=== PATIENT | male | born 1935 | race Caucasian/White ===

== ENCOUNTER 2023-03-10 22:13 | Inpatient (IN) ==
--- NOTE | 2023-03-10 22:23 | Emergency Department Note ---
History of Present Illness General Chief complaint: Hip Pain Stated complaint: FALL/HIT HEAD/lt. HIP AND WRIST PAIN Time Seen by Provider: 03/10/23 22:15 History of Present Illness This 87-year-old male on Xarelto presents to the ER for fall earlier this evening at 5 PM. Patient states he tripped and fell landing on his left side. He hit his head and hip. He was able to get up from the fall. He had increas ing pain since. He is also been fatigued and short of breath for the past month. He recently moved up here from [place] and does not have a PCP yet. He is on Xarelto for A-fib. Patient denies chest pain, abdominal pain, back pain, numbness, tingling, localized weakness. He has had problems with this hip for quite some time. Home Medications Medication Instructions Recorded Confirmed Type ascorbic acid (vitamin C) 500 mg 0 mg PO DAILY 03/11/23 03/11/23 History tablet (Vitamin C) cholecalciferol (vitamin D3) 25 0 mcg PO DAILY 03/11/23 03/11/23 History mcg (1,000 unit) tablet (Vitamin D3) finasteride 5 mg tablet 5 mg PO DAILY 03/11/23 03/11/23 History inulin 2 gram chewable tablet 0 g PO DAILY 03/11/23 03/11/23 History (Prebiotic Fiber) lactobacillus combination no.4 3 0 mmu cells PO DAILY 03/11/23 03/11/23 History billion cell capsule (Probiotic) metformin 500 mg tablet 1,000 mg PO BID 03/11/23 03/11/23 History metoprolol succinate 50 mg 50 mg PO DAILY 03/11/23 03/11/23 History tablet,extended release 24 hr multivitamin 1 tab PO DAILY 03/11/23 03/11/23 History pantoprazole 40 mg tablet,delayed 40 mg PO DAILY 03/11/23 03/11/23 History release rivaroxaban 15 mg tablet (Xarelto) 15 mg PO DAILY 03/11/23 03/11/23 History Allergies Allergy/AdvReac Type Severity Reaction Status Date / Time heparin AdvReac Thrombocyto Verified 03/11/23 02:28 penia Past Med/Surg History Medical History (Updated 03/11/23 @ 11:45 by Johan Mota MD) Atrial fibrillation BPH (benign prostatic hyperplasia) Complicated UTI (urinary tract infection) DKA (diabetic ketoacidosis) Hip fracture, left Kidney stone on right side Surgical History History of Whipple procedure Social History (Updated 03/11/23 @ 11:28 by Chidi Lopez PA-C) Smoking Status: Never smoker Second Hand Exposure: No; Do You Dip or Chew Tobacco: No; Tobacco Cessation Education Requested by Patient: No Hx Alcohol Use: Yes Alcohol type: wine Hx Substance Use: No Preferred Language: Serbian Communication Ability: Effective Cable Wirer Required: Yes Beliefs That Will Affect Care: None marital status: / Current Living Situation: Family Other Information That Helps Us Care for You: No Feels Safe at Home: Yes Safety Concerns: Feels Safe At This Time Assistive Devices: Glasses Review of Systems A total of 10 systems reviewed and were otherwise negative Physical Exam Vital Signs Vital Signs - 24 hr 03/10/23 22:39 03/10/23 23:03 03/11/23 01:06 Temperature 36.7 C Temperature Source Oral Pulse Rate 85 85 Pulse Rate [Apical] 91 H Pulse Rhythm Regular Regular Pulse Strength Normal Respiratory Rate 18 18 18 Respiratory Effort / Characteristics Non-Labored Spontaneous Non-Labored Spontaneous Respiratory Depth Normal Normal Respiratory Pattern Regular Blood Pressure 177/86 H Blood Pressure [Right Arm] 150/84 H Blood Pressure Mean 116 Blood Pressure Mean [Right Arm] 106 Blood Pressure Position Lying Pulse Oximetry 93 94 96 Oxygen Delivery Method Room Air Room Air Room Air Sepsis Recent Fever Within 48 Hours No Sepsis New/Unexplained Change in Mental Status No Sepsis Action Taken by Nursing No Action Required PHYSICAL EXAM: VITALS: Vitals are noted on the nurse's note and reviewed by myself. Vital signs stable. GENERAL: Pleasant gentleman with a left forehead abrasion and contusion, in no acute distress, nondiaphoretic, well-developed well-nourished. SKIN: Abrasion to the left forehead and contusion, the rest of the skin was without obvious lacerations or abrasions. Capillary reflex less than 2 seconds. HEAD: Normocephalic EARS: External auditory canals clear, tympanic membranes pearly garcia without erythema or effusion bilaterally. No hemotympanums. No mccord sign. No mastoid tenderness. EYES: Pupils equal round and reactive to light and accommodation. Conjunctivae without injection, sclerae without icterus. Extraocular movements intact. NOSE: Patent, turbinates without inflammation or discharge. No sinus tenderness. No septal hematoma or bleeding. FACE: No facial bone tenderness. Full range of motion of the jaw without tenderness. MOUTH: Mucous membranes moist. Pharynx without erythema or exudate. Uvula midline. Airway patent. Tongue does not deviate. NECK: Supple without nuchal rigidity. Cervical spine is nontender. Full range of motion of the neck without tenderness. No JVD. HEART: Regular rate and rhythm LUNGS: Clear to auscultation bilaterally without wheezes, rales or rhonchi. No dullness to percussion. No retractions or accessory muscle use. No chest wall tenderness. ABDOMEN: Positive bowel sounds x 4. Normal tympanic percussion. Soft, nontender, without masses or organomegaly. No guarding or rebound tenderness. MUSCULOSKELETAL: No tenderness of the thoracic or lumbar spine. Left hip tender to palpation, no crepitus, Full range of motion without tenderness to palpation in all extremities. Peripheral pulses 2+. NEURO: Patient was alert and oriented to person place and time. Normal Mini- Mental status exam. Normal sensation to light and sharp touch. No focal neurological deficits. Course Administered Medications Acetaminophen (Acetaminophen 325 Mg Tab) 650 mg PO Q4H [facility] Stop: 04/10/23 12:59 Last Admin: 03/11/23 17:53 Dose: 650 mg Documented By: Admin: 03/11/23 12:00 Dose: 650 mg Documented By: TOBIAS Finasteride (Finasteride 5 Mg Tab) 5 mg PO DAILY [facility] Stop: 04/10/23 08:59 Last Admin: 03/11/23 08:03 Dose: 5 mg Documented By: TOBIAS Sodium Chloride (Nss 1000ml) 1,000 mls @ 80 mls/hr IV .[id number] [facility] Stop: 03/11/23 23:14 Last Admin: 03/11/23 12:03 Dose: 80 mls/hr Documented By: TOBIAS Insulin Aspart (Insulin Aspart Per Unit Charge) 0 units SC Q6 [facility]; Protocol Stop: 04/10/23 05:59 Last Admin: 03/11/23 17:58 Dose: 13 units Documented By: TOBIAS Co-signed By: DELPHINE Admin: 03/11/23 11:57 Dose: 2 units Documented By: TOBIAS Co-signed By: DELPHINE(2) Admin: 03/11/23 05:16 Dose: 3 units Documented By: BELEN Co-signed By: RUBEN Metoprolol Succinate (Metoprolol Succ 50mg Ext Rel Tab) 50 mg PO DAILY [facility] Stop: 04/10/23 08:59 Last Admin: 03/11/23 07:38 Dose: Not Given Documented By: TOBIAS Morphine Sulfate (Morphine Sulfate 4 Mg/Ml 1 Ml Carp\Vial) 4 mg IV Q4H PRN PRN Reason: Severe Pain (Scale 7, 8, 9,10) Stop: 03/25/23 03:30 Last Admin: 03/11/23 17:53 Dose: 4 mg Documented By: Admin: 03/11/23 08:15 Dose: 4 mg Documented By: TOBIAS Pantoprazole Sodium (Pantoprazole 40 Mg Tab) 40 mg PO DAILY [facility] Stop: 04/10/23 08:59 Last Admin: 03/11/23 08:03 Dose: 40 mg Documented By: TOBIAS Discontinued Medications Diatrizoate Meglumine (Diatrizoate Meglumine 30% 100ml Vial) 11 ml INSTIL ONCE ONE Stop: 03/11/23 15:46 Last Admin: 03/11/23 15:45 Dose: 11 ml Documented By: [id number] Sodium Chloride (Nss 1000ml) 1,000 mls @ 999 mls/hr IV .Q1H1M ONE Stop: 03/11/23 00:08 Last Infusion: 03/11/23 00:17 Dose: 0 mls/hr Documented By: JOSE LUIS Admin: 03/10/23 23:11 Dose: 999 mls/hr Documented By: GGG Ceftriaxone Sodium (Rocephin) 2,000 mg in 70 mls @ 140 mls/hr IV NOW STA Stop: 03/10/23 23:45 Last Infusion: 03/11/23 01:04 Dose: 0 mls/hr Documented By: JOSE LUIS Admin: 03/11/23 00:33 Dose: 140 mls/hr Documented By: JOSE LUIS Insulin Human Regular 250 (units/ Sodium Chloride) 250 mls @ 2 mls/hr IV .Q24H [facility]; Protocol Stop: 04/09/23 23:44 Last Titration: 03/11/23 04:02 Dose: 0 units/hr, 0 mls/hr Documented By: BELEN Co-signed By: RUBEN Titration: 03/11/23 02:57 Dose: 2 units/hr, 2 mls/hr Documented By: JOSE LUIS Co-signed By: REYNALDO Titration: 03/11/23 02:00 Dose: 4 units/hr, 4 mls/hr Documented By: AN Co-signed By: REYNALDO Titration: 03/11/23 01:43 Dose: 6.4 units/hr, 6.4 mls/hr Documented By: AN Co-signed By: REYNALDO Admin: 03/11/23 00:33 Dose: 8 units/hr, 8 mls/hr Documented By: AN Co-signed By: REYNALDO Acetaminophen (Ofirmev) 1,000 mg in 100 mls @ 400 mls/hr IV Q8H PRN PRN Reason: Mild Pain (Scale 1, 2, 3) Stop: 03/14/23 03:30 Last Infusion: 03/11/23 06:55 Dose: 0 mls/hr Documented By: Admin: 03/11/23 06:40 Dose: 400 mls/hr Documented By: BELEN Insulin Aspart (Insulin Aspart Per Unit Charge) 3 units SC NOW STA; Protocol Stop: 03/11/23 06:21 Last Admin: 03/11/23 06:27 Dose: 3 units Documented By: BELEN Co-signed By: DAVE Insulin Glargine (Lantus Per Unit Charge) 10 units SC NOW STA Stop: 03/11/23 02:28 Last Admin: 03/11/23 02:37 Dose: 10 units Documented By: AN Co-signed By: REYNALDO Insulin Glargine (Lantus Per Unit Charge) 10 units SC NOW STA Stop: 03/11/23 05:08 Last Admin: 03/11/23 05:16 Dose: 10 units Documented By: BELEN Co-signed By: RUBEN Insulin Human Regular (Novolin-R Bolus From Bag) 8 units IV ONE ONE Stop: 03/11/23 00:01 Last Admin: 03/11/23 00:43 Dose: 8 units Documented By: AN Co-signed By: REYNALDO Miscellaneous (Stat Iv Infusion Titration Per Protocol) 1 each N/A NOW STA Stop: 03/10/23 23:40 Last Admin: 03/11/23 00:43 Dose: 1 each Documented By: AN Miscellaneous (Dka Goal Range 150-250 Mg/Dl) 1 each N/A ONE ONE Stop: 03/10/23 23:46 Last Admin: 03/11/23 00:43 Dose: 1 each Documented By: AN Morphine Sulfate (Morphine Sulfate 4 Mg/Ml 1 Ml Carp\Vial) 4 mg IV NOW STA Stop: 03/11/23 01:13 Last Admin: 03/11/23 01:36 Dose: 4 mg Documented By: AN Critical Care Time Critical Care Time: Yes Total Critical Care Time: 35 I have personally spent 35 minutes of critical care time in the direct management of this patient. This includes bedside care, interpretation of diagnostic studies, and testing, discussion with consultants, patient, and family members, and other required patient management activities. This 35 minutes is in excess of all separately billable procedures. Medical Decision Making Medical Records Attestation: I reviewed the patient's medical records. Home Medications Current Medication List: was personally reviewed by me Laboratory Data Attestation: I reviewed the patient's lab results. 03/10/23 22:52 03/11/23 00:13 Lab Results 03/10/23 03/10/23 03/10/23 Range/Units 22:51 22:52 22:52 WBC 14.58 H (4.8-10.8) K/ul RBC 4.27 L (4.70-6.10) M/uL Hgb 10.4 L (14.0-18.0) g/dl POC Hgb (14.0-18.0) g/dl Hct 34.3 L (42.0-52.0) % POC Hct (42-52) % MCV 80.3 (80.0-100.0) fL MCH 24.4 L (25.0-34.0) pg MCHC 30.3 L (32.0-36.0) g/dL RDW Std Deviation 48.6 H (36.4-46.3) fL RDW Coeff of Billie 17.0 H (11.5-14.5) % Plt Count 293 (130-400) K/uL MPV 10.4 (9.4-12.4) fL Immature Gran % (Auto) 1.0 % Neut % (Auto) 86.8 % Lymph % (Auto) 4.0 % [place] % (Auto) 8.0 % Eos % (Auto) 0.0 % Baso % (Auto) 0.2 % Neut # (Auto) 12.65 H (1.40-6.50) K/uL Lymph # (Auto) 0.58 L (1.2-3.4) K/uL [place] # (Auto) 1.17 H (0.11-0.59) K/uL Eos # (Auto) 0.00 (0-0.50) K/uL Baso # (Auto) 0.03 (0-0.2) K/uL Immature Gran # (Auto) 0.15 (0.01-0.20) K/uL PT INR VBG pH (7.36-7.41) POC Sodium (135-144) mmol/L Sodium 131 L (136-145) mmol/L POC Potassium (3.3-5.0) mmol/L Potassium 4.9 (3.5-5.1) mmol/L POC Chloride (101-112) mmol/L Chloride 98 (98-107) mmol/L Carbon Dioxide 21 (21-32) mmol/L POC Total CO2 (24-31) mmol/L Anion Gap 12 H (3-11) POC Anion Gap (16-25) mmol/L POC BUN (7-18) mg/dl BUN 27 H (6-23) mg/dl Creatinine 1.62 H (0.6-1.4) mg/dl POC Creatinine (0.6-1.3) mg/dl Est Cr Clr Drug Dosing 35.5 ml/min Est GFR ( Amer) 44.2 ml/min Est GFR (Non-Af Amer) 38.1 ml/min BUN/Creatinine Ratio 16.7 (10-20) Glucose 649 H* (70-99(Fasting)) mg/dl POC Glucose (70-99) mg/dl POC Glucose (other) (70-99) mg/dl Calcium 9.1 (8.6-10.3) mg/dl POC Ioniz Calcium Liudmila (1.12-1.32) mmol/l Phosphorus (2.5-4.9) mg/dl Magnesium 1.8 (1.7-2.4) mg/dl Total Bilirubin 0.7 (0.2-1.0) mg/dl AST 16 (13-39) U/L ALT 15 (7-52) U/L Alkaline Phosphatase 98 (34-104) U/L Total Creatine Kinase 58 (30-223) U/L Troponin I High Sens 21.2 H (0-20) pg/ml B-Natriuretic Peptide (0-100) pg/ml Total Protein 7.3 (6.0-8.3) gm/dl Albumin 4.2 (3.4-5.0) gm/dl Globulin 3.1 (2.5-4.0) gm/dl Albumin/Globulin Ratio 1.4 (0.9-2) TSH (0.300-4.500) uIu/ml Urine Color Yellow Urine Appearance Cloudy A (Clear) Urine pH 5.5 (4.5-7.5) Ur Specific Fraser 1.028 (1.000-1.030) Urine Protein 1+ H (Negative) Urine Glucose (UA) 3+ H (Negative) Urine Ketones Trace H (Negative) Urine Blood 2+ H (Negative) Urine Nitrite Positive A (Negative) Urine Bilirubin Negative (Negative) Urine Urobilinogen Negative (Negative) Ur Leukocyte Esterase 1+ H (Negative) Urine WBC (Auto) >30 H (0-5) /hpf Urine RBC (Auto) 0-4 (0-4) /hpf U Hyaline Cast (Auto) 1-5 (0-5) /lpf U Epithel Cells (Auto) 10-20 H (0-5) /lpf Urine Bacteria (Auto) 1+ H (Negative) Urine Yeast Not Reportable Adenovirus (PCR) (NotDetected) B. pertussis DNA (PCR) (NotDetected) B.parapertussis DNA PCR (NotDetected) C. pneumoniae DNA (PCR) (NotDetected) Coronavirus OC43 (PCR) (NotDetected) Coronavirus HKU1 (PCR) (NotDetected) Coronavirus 229E (PCR) (NotDetected) SARS-CoV-2 (PCR) (NotDetected) Coronavirus NL63 (PCR) (NotDetected) Human Metapneumovir PCR (NotDetected) Influenza Type A (PCR) (NotDetected) Influenza Type B (PCR) (NotDetected) M. pneumoniae (PCR) (NotDetected) Parainfluenza 1 (PCR) (NotDetected) Parainfluenza 2 (PCR) (NotDetected) Parainfluenza 3 (PCR) (NotDetected) Parainfluenza 4 (PCR) (NotDetected) RSV (PCR) (NotDetected) Entero/Rhino (PCR) (NotDetected) 03/10/23 03/10/23 03/10/23 Range/Units 22:52 22:52 23:00 WBC (4.8-10.8) K/ul RBC (4.70-6.10) M/uL Hgb (14.0-18.0) g/dl POC Hgb 12.9 L (14.0-18.0) g/dl Hct (42.0-52.0) % POC Hct 38 L (42-52) % MCV (80.0-100.0) fL MCH (25.0-34.0) pg MCHC (32.0-36.0) g/dL RDW Std Deviation (36.4-46.3) fL RDW Coeff of Billie (11.5-14.5) % Plt Count (130-400) K/uL MPV (9.4-12.4) fL Immature Gran % (Auto) % Neut % (Auto) % Lymph % (Auto) % [place] % (Auto) % Eos % (Auto) % Baso % (Auto) % Neut # (Auto) (1.40-6.50) K/uL Lymph # (Auto) (1.2-3.4) K/uL [place] # (Auto) (0.11-0.59) K/uL Eos # (Auto) (0-0.50) K/uL Baso # (Auto) (0-0.2) K/uL Immature Gran # (Auto) (0.01-0.20) K/uL PT Cancelled INR Cancelled VBG pH (7.36-7.41) POC Sodium 132 L (135-144) mmol/L Sodium (136-145) mmol/L POC Potassium 5.1 H (3.3-5.0) mmol/L Potassium (3.5-5.1) mmol/L POC Chloride 99 L (101-112) mmol/L Chloride (98-107) mmol/L Carbon Dioxide (21-32) mmol/L POC Total CO2 18 L (24-31) mmol/L Anion Gap (3-11) POC Anion Gap 20.0 (16-25) mmol/L POC BUN 34 H (7-18) mg/dl BUN (6-23) mg/dl Creatinine (0.6-1.4) mg/dl POC Creatinine 1.4 H (0.6-1.3) mg/dl Est Cr Clr Drug Dosing ml/min Est GFR ( Amer) ml/min Est GFR (Non-Af Amer) ml/min BUN/Creatinine Ratio (10-20) Glucose (70-99(Fasting)) mg/dl POC Glucose (70-99) mg/dl POC Glucose (other) 646 H* (70-99) mg/dl Calcium (8.6-10.3) mg/dl POC Ioniz Calcium Liudmila 1.04 L (1.12-1.32) mmol/l Phosphorus (2.5-4.9) mg/dl Magnesium (1.7-2.4) mg/dl Total Bilirubin (0.2-1.0) mg/dl AST (13-39) U/L ALT (7-52) U/L Alkaline Phosphatase (34-104) U/L Total Creatine Kinase (30-223) U/L Troponin I High Sens (0-20) pg/ml B-Natriuretic Peptide (0-100) pg/ml Total Protein (6.0-8.3) gm/dl Albumin (3.4-5.0) gm/dl Globulin (2.5-4.0) gm/dl Albumin/Globulin Ratio (0.9-2) TSH 2.785 (0.300-4.500) uIu/ml Urine Color Urine Appearance (Clear) Urine pH (4.5-7.5) Ur Specific Fraser (1.000-1.030) Urine Protein (Negative) Urine Glucose (UA) (Negative) Urine Ketones (Negative) Urine Blood (Negative) Urine Nitrite (Negative) Urine Bilirubin (Negative) Urine Urobilinogen (Negative) Ur Leukocyte Esterase (Negative) Urine WBC (Auto) (0-5) /hpf Urine RBC (Auto) (0-4) /hpf U Hyaline Cast (Auto) (0-5) /lpf U Epithel Cells (Auto) (0-5) /lpf Urine Bacteria (Auto) (Negative) Urine Yeast Adenovirus (PCR) (NotDetected) B. pertussis DNA (PCR) (NotDetected) B.parapertussis DNA PCR (NotDetected) C. pneumoniae DNA (PCR) (NotDetected) Coronavirus OC43 (PCR) (NotDetected) Coronavirus HKU1 (PCR) (NotDetected) Coronavirus 229E (PCR) (NotDetected) SARS-CoV-2 (PCR) (NotDetected) Coronavirus NL63 (PCR) (NotDetected) Human Metapneumovir PCR (NotDetected) Influenza Type A (PCR) (NotDetected) Influenza Type B (PCR) (NotDetected) M. pneumoniae (PCR) (NotDetected) Parainfluenza 1 (PCR) (NotDetected) Parainfluenza 2 (PCR) (NotDetected) Parainfluenza 3 (PCR) (NotDetected) Parainfluenza 4 (PCR) (NotDetected) RSV (PCR) (NotDetected) Entero/Rhino (PCR) (NotDetected) 03/10/23 03/11/23 03/11/23 Range/Units Unknown 00:13 00:13 WBC (4.8-10.8) K/ul RBC (4.70-6.10) M/uL Hgb (14.0-18.0) g/dl POC Hgb (14.0-18.0) g/dl Hct (42.0-52.0) % POC Hct (42-52) % MCV (80.0-100.0) fL MCH (25.0-34.0) pg MCHC (32.0-36.0) g/dL RDW Std Deviation (36.4-46.3) fL RDW Coeff of Billie (11.5-14.5) % Plt Count (130-400) K/uL MPV (9.4-12.4) fL Immature Gran % (Auto) % Neut % (Auto) % Lymph % (Auto) % [place] % (Auto) % Eos % (Auto) % Baso % (Auto) % Neut # (Auto) (1.40-6.50) K/uL Lymph # (Auto) (1.2-3.4) K/uL [place] # (Auto) (0.11-0.59) K/uL Eos # (Auto) (0-0.50) K/uL Baso # (Auto) (0-0.2) K/uL Immature Gran # (Auto) (0.01-0.20) K/uL PT INR VBG pH (7.36-7.41) POC Sodium (135-144) mmol/L Sodium 132 L (136-145) mmol/L POC Potassium (3.3-5.0) mmol/L Potassium 4.5 (3.5-5.1) mmol/L POC Chloride (101-112) mmol/L Chloride 100 (98-107) mmol/L Carbon Dioxide 22 (21-32) mmol/L POC Total CO2 (24-31) mmol/L Anion Gap 10 (3-11) POC Anion Gap (16-25) mmol/L POC BUN (7-18) mg/dl BUN 27 H (6-23) mg/dl Creatinine 1.50 H (0.6-1.4) mg/dl POC Creatinine (0.6-1.3) mg/dl Est Cr Clr Drug Dosing 38.3 ml/min Est GFR ( Amer) 48.5 ml/min Est GFR (Non-Af Amer) 41.9 ml/min BUN/Creatinine Ratio 18.0 (10-20) Glucose 558 H* (70-99(Fasting)) mg/dl POC Glucose (70-99) mg/dl POC Glucose (other) (70-99) mg/dl Calcium 8.9 (8.6-10.3) mg/dl POC Ioniz Calcium Liudmila (1.12-1.32) mmol/l Phosphorus 3.3 (2.5-4.9) mg/dl Magnesium (1.7-2.4) mg/dl Total Bilirubin (0.2-1.0) mg/dl AST (13-39) U/L ALT (7-52) U/L Alkaline Phosphatase (34-104) U/L Total Creatine Kinase (30-223) U/L Troponin I High Sens 21.6 H (0-20) pg/ml B-Natriuretic Peptide 151 H (0-100) pg/ml Total Protein (6.0-8.3) gm/dl Albumin (3.4-5.0) gm/dl Globulin (2.5-4.0) gm/dl Albumin/Globulin Ratio (0.9-2) TSH (0.300-4.500) uIu/ml Urine Color Urine Appearance (Clear) Urine pH (4.5-7.5) Ur Specific Fraser (1.000-1.030) Urine Protein (Negative) Urine Glucose (UA) (Negative) Urine Ketones (Negative) Urine Blood (Negative) Urine Nitrite (Negative) Urine Bilirubin (Negative) Urine Urobilinogen (Negative) Ur Leukocyte Esterase (Negative) Urine WBC (Auto) (0-5) /hpf Urine RBC (Auto) (0-4) /hpf U Hyaline Cast (Auto) (0-5) /lpf U Epithel Cells (Auto) (0-5) /lpf Urine Bacteria (Auto) (Negative) Urine Yeast Adenovirus (PCR) Not Detected (NotDetected) B. pertussis DNA (PCR) Not Detected (NotDetected) B.parapertussis DNA PCR Not Detected (NotDetected) C. pneumoniae DNA (PCR) Not Detected (NotDetected) Coronavirus OC43 (PCR) Not Detected (NotDetected) Coronavirus HKU1 (PCR) Not Detected (NotDetected) Coronavirus 229E (PCR) Not Detected (NotDetected) SARS-CoV-2 (PCR) Not Detected (NotDetected) Coronavirus NL63 (PCR) Not Detected (NotDetected) Human Metapneumovir PCR Not Detected (NotDetected) Influenza Type A (PCR) Not Detected (NotDetected) Influenza Type B (PCR) Not Detected (NotDetected) M. pneumoniae (PCR) Not Detected (NotDetected) Parainfluenza 1 (PCR) Not Detected (NotDetected) Parainfluenza 2 (PCR) Not Detected (NotDetected) Parainfluenza 3 (PCR) Not Detected (NotDetected) Parainfluenza 4 (PCR) Not Detected (NotDetected) RSV (PCR) Not Detected (NotDetected) Entero/Rhino (PCR) Not Detected (NotDetected) 03/11/23 03/11/23 03/11/23 Range/Units 00:13 00:13 00:42 WBC (4.8-10.8) K/ul RBC (4.70-6.10) M/uL Hgb (14.0-18.0) g/dl POC Hgb (14.0-18.0) g/dl Hct (42.0-52.0) % POC Hct (42-52) % MCV (80.0-100.0) fL MCH (25.0-34.0) pg MCHC (32.0-36.0) g/dL RDW Std Deviation (36.4-46.3) fL RDW Coeff of Billie (11.5-14.5) % Plt Count (130-400) K/uL MPV (9.4-12.4) fL Immature Gran % (Auto) % Neut % (Auto) % Lymph % (Auto) % [place] % (Auto) % Eos % (Auto) % Baso % (Auto) % Neut # (Auto) (1.40-6.50) K/uL Lymph # (Auto) (1.2-3.4) K/uL [place] # (Auto) (0.11-0.59) K/uL Eos # (Auto) (0-0.50) K/uL Baso # (Auto) (0-0.2) K/uL Immature Gran # (Auto) (0.01-0.20) K/uL PT INR VBG pH 7.30 L (7.36-7.41) POC Sodium (135-144) mmol/L Sodium (136-145) mmol/L POC Potassium (3.3-5.0) mmol/L Potassium (3.5-5.1) mmol/L POC Chloride (101-112) mmol/L Chloride (98-107) mmol/L Carbon Dioxide (21-32) mmol/L POC Total CO2 (24-31) mmol/L Anion Gap (3-11) POC Anion Gap (16-25) mmol/L POC BUN (7-18) mg/dl BUN (6-23) mg/dl Creatinine (0.6-1.4) mg/dl POC Creatinine (0.6-1.3) mg/dl Est Cr Clr Drug Dosing ml/min Est GFR ( Amer) ml/min Est GFR (Non-Af Amer) ml/min BUN/Creatinine Ratio (10-20) Glucose (70-99(Fasting)) mg/dl POC Glucose 522 H* (70-99) mg/dl POC Glucose (other) (70-99) mg/dl Calcium (8.6-10.3) mg/dl POC Ioniz Calcium Liudmila (1.12-1.32) mmol/l Phosphorus (2.5-4.9) mg/dl Magnesium (1.7-2.4) mg/dl Total Bilirubin (0.2-1.0) mg/dl AST (13-39) U/L ALT (7-52) U/L Alkaline Phosphatase (34-104) U/L Total Creatine Kinase (30-223) U/L Troponin I High Sens Cancelled (0-20) pg/ml B-Natriuretic Peptide (0-100) pg/ml Total Protein (6.0-8.3) gm/dl Albumin (3.4-5.0) gm/dl Globulin (2.5-4.0) gm/dl Albumin/Globulin Ratio (0.9-2) TSH (0.300-4.500) uIu/ml Urine Color Urine Appearance (Clear) Urine pH (4.5-7.5) Ur Specific Fraser (1.000-1.030) Urine Protein (Negative) Urine Glucose (UA) (Negative) Urine Ketones (Negative) Urine Blood (Negative) Urine Nitrite (Negative) Urine Bilirubin (Negative) Urine Urobilinogen (Negative) Ur Leukocyte Esterase (Negative) Urine WBC (Auto) (0-5) /hpf Urine RBC (Auto) (0-4) /hpf U Hyaline Cast (Auto) (0-5) /lpf U Epithel Cells (Auto) (0-5) /lpf Urine Bacteria (Auto) (Negative) Urine Yeast Adenovirus (PCR) (NotDetected) B. pertussis DNA (PCR) (NotDetected) B.parapertussis DNA PCR (NotDetected) C. pneumoniae DNA (PCR) (NotDetected) Coronavirus OC43 (PCR) (NotDetected) Coronavirus HKU1 (PCR) (NotDetected) Coronavirus 229E (PCR) (NotDetected) SARS-CoV-2 (PCR) (NotDetected) Coronavirus NL63 (PCR) (NotDetected) Human Metapneumovir PCR (NotDetected) Influenza Type A (PCR) (NotDetected) Influenza Type B (PCR) (NotDetected) M. pneumoniae (PCR) (NotDetected) Parainfluenza 1 (PCR) (NotDetected) Parainfluenza 2 (PCR) (NotDetected) Parainfluenza 3 (PCR) (NotDetected) Parainfluenza 4 (PCR) (NotDetected) RSV (PCR) (NotDetected) Entero/Rhino (PCR) (NotDetected) 03/11/23 Range/Units 01:42 WBC (4.8-10.8) K/ul RBC (4.70-6.10) M/uL Hgb (14.0-18.0) g/dl POC Hgb (14.0-18.0) g/dl Hct (42.0-52.0) % POC Hct (42-52) % MCV (80.0-100.0) fL MCH (25.0-34.0) pg MCHC (32.0-36.0) g/dL RDW Std Deviation (36.4-46.3) fL RDW Coeff of Billie (11.5-14.5) % Plt Count (130-400) K/uL MPV (9.4-12.4) fL Immature Gran % (Auto) % Neut % (Auto) % Lymph % (Auto) % [place] % (Auto) % Eos % (Auto) % Baso % (Auto) % Neut # (Auto) (1.40-6.50) K/uL Lymph # (Auto) (1.2-3.4) K/uL [place] # (Auto) (0.11-0.59) K/uL Eos # (Auto) (0-0.50) K/uL Baso # (Auto) (0-0.2) K/uL Immature Gran # (Auto) (0.01-0.20) K/uL PT INR VBG pH (7.36-7.41) POC Sodium (135-144) mmol/L Sodium (136-145) mmol/L POC Potassium (3.3-5.0) mmol/L Potassium (3.5-5.1) mmol/L POC Chloride (101-112) mmol/L Chloride (98-107) mmol/L Carbon Dioxide (21-32) mmol/L POC Total CO2 (24-31) mmol/L Anion Gap (3-11) POC Anion Gap (16-25) mmol/L POC BUN (7-18) mg/dl BUN (6-23) mg/dl Creatinine (0.6-1.4) mg/dl POC Creatinine (0.6-1.3) mg/dl Est Cr Clr Drug Dosing ml/min Est GFR ( Amer) ml/min Est GFR (Non-Af Amer) ml/min BUN/Creatinine Ratio (10-20) Glucose (70-99(Fasting)) mg/dl POC Glucose 366 H* (70-99) mg/dl POC Glucose (other) (70-99) mg/dl Calcium (8.6-10.3) mg/dl POC Ioniz Calcium Liudmila (1.12-1.32) mmol/l Phosphorus (2.5-4.9) mg/dl Magnesium (1.7-2.4) mg/dl Total Bilirubin (0.2-1.0) mg/dl AST (13-39) U/L ALT (7-52) U/L Alkaline Phosphatase (34-104) U/L Total Creatine Kinase (30-223) U/L Troponin I High Sens (0-20) pg/ml B-Natriuretic Peptide (0-100) pg/ml Total Protein (6.0-8.3) gm/dl Albumin (3.4-5.0) gm/dl Globulin (2.5-4.0) gm/dl Albumin/Globulin Ratio (0.9-2) TSH (0.300-4.500) uIu/ml Urine Color Urine Appearance (Clear) Urine pH (4.5-7.5) Ur Specific Fraser (1.000-1.030) Urine Protein (Negative) Urine Glucose (UA) (Negative) Urine Ketones (Negative) Urine Blood (Negative) Urine Nitrite (Negative) Urine Bilirubin (Negative) Urine Urobilinogen (Negative) Ur Leukocyte Esterase (Negative) Urine WBC (Auto) (0-5) /hpf Urine RBC (Auto) (0-4) /hpf U Hyaline Cast (Auto) (0-5) /lpf U Epithel Cells (Auto) (0-5) /lpf Urine Bacteria (Auto) (Negative) Urine Yeast Adenovirus (PCR) (NotDetected) B. pertussis DNA (PCR) (NotDetected) B.parapertussis DNA PCR (NotDetected) C. pneumoniae DNA (PCR) (NotDetected) Coronavirus OC43 (PCR) (NotDetected) Coronavirus HKU1 (PCR) (NotDetected) Coronavirus 229E (PCR) (NotDetected) SARS-CoV-2 (PCR) (NotDetected) Coronavirus NL63 (PCR) (NotDetected) Human Metapneumovir PCR (NotDetected) Influenza Type A (PCR) (NotDetected) Influenza Type B (PCR) (NotDetected) M. pneumoniae (PCR) (NotDetected) Parainfluenza 1 (PCR) (NotDetected) Parainfluenza 2 (PCR) (NotDetected) Parainfluenza 3 (PCR) (NotDetected) Parainfluenza 4 (PCR) (NotDetected) RSV (PCR) (NotDetected) Entero/Rhino (PCR) (NotDetected) Imaging Data Attestation: I personally reviewed and interpreted this imaging study as follows: Radiologist's Impression: Cervical Spine CT 03/10/23 22:21 Exam(s): CT C SPINE EXAM: CT Cervical Spine Without Intravenous Contrast CLINICAL HISTORY: Reason for exam: HI on Xarelto. TECHNIQUE: Axial computed tomography images of the cervical spine without intravenous contrast. CTDI is 23.48 mGy and DLP is 549.03 mGy-cm. Automated exposure control was utilized for the study. A dose lowering technique was utilized adhering to the principles of ALARA. COMPARISON: No relevant prior studies available. FINDINGS: Vertebrae: Grade 1 anterolisthesis of C7 relative to T1. Otherwise, alignment is maintained with preservation of vertebral body heights. No acute fracture. Discs/spinal canal/neural foramina: No significant bony spinal canal stenosis at any cervical level. C3-4, C4-5, and C5-6 spondylosis with anterior bony spurs. Uncinate spurs and facet hypertrophy cause severe right neural foramen stenosis at the C3-4 level. Facet hypertrophy and uncinate spurs cause moderate bilateral neural foramen stenosis at C4-5. No significant neural foramen stenosis at C5-6. Soft tissues: Unremarkable. IMPRESSION: No acute findings in the cervical spine. Electronically signed by: Yuri Lora M.D. 03/10/23 23:[address] 03/10/23 22:21 Exam(s): CT HEAD Without Contrast EXAM: CT Head Without Intravenous Contrast CLINICAL HISTORY: Reason for exam: HI on Xarelto. TECHNIQUE: Axial computed tomography images of the head/brain without intravenous contrast. CTDI is 38.74 mGy and DLP is 624.41 mGy-cm. Automated exposure control was utilized for the study. A dose lowering technique was utilized adhering to the principles of ALARA. COMPARISON: No relevant prior studies available. FINDINGS: Brain: Mild periventricular white matter changes, likely related to microangiopathy. No hemorrhage. Ventricles: Unremarkable. No ventriculomegaly. Bones/joints: Unremarkable. No acute fracture. Soft tissues: Unremarkable. Sinuses: Unremarkable as visualized. No acute sinusitis. Mastoid air cells: Unremarkable as visualized. No mastoid effusion. IMPRESSION: Mild periventricular white matter changes, likely related to microangiopathy. Electronically signed by: Yuri Lora M.D. 03/10/23 22:59 PM Abdomen/Pelvis CT 03/10/23 23:43 Exam(s): CT ABDOMEN + PELVIS Without Contrast EXAM: CT Abdomen and Pelvis Without Intravenous Contrast CLINICAL HISTORY: Reason for exam: DKA, UTI, ? pyelo. TECHNIQUE: Axial computed tomography images of the abdomen and pelvis without intravenous contrast. Automated exposure control was utilized for the study. A dose lowering technique was utilized adhering to the principles of ALARA. COMPARISON: No relevant prior studies available. FINDINGS: Lung bases: Bilateral dependent atelectasis. No mass. No consolidation. ABDOMEN: Liver: Unremarkable. Gallbladder and bile ducts: Pneumobilia within expected limits. No calcified stones. No ductal dilation. 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 No ductal dilation. Spleen: Unremarkable. No splenomegaly. Adrenals: Unremarkable. No mass. Kidneys and ureters: 0.2 cm nonobstructing left lower pole renal calculus. 1.2 x 0.6 cm distal right ureteral calculus best seen on series 300 image 54. The right ureter inserts more laterally than typical. It is unusual that there is no hydronephrosis of the right kidney. Stomach and bowel: Unremarkable. No obstruction. No mucosal thickening. PELVIS: Appendix: No findings to suggest acute appendicitis. Bladder: Right lateral bladder diverticulum. No stones. Reproductive: Unremarkable as visualized. ABDOMEN and PELVIS: Intraperitoneal space: Unremarkable. No free air. No significant fluid collection. Bones/joints: Left intertrochanteric hip fracture. No dislocation. Soft tissues: Unremarkable. Vasculature: Unremarkable. No abdominal aortic aneurysm. Lymph nodes: Unremarkable. No enlarged lymph nodes. IMPRESSION: 1.2 x 0.6 cm distal right ureteral calculus best seen on series 300 image 54. The right ureter inserts more laterally than typical. It is unusual that there is no hydronephrosis of the right kidney. Status post Whipple surgery. Remaining pancreas has coarse calcifications consistent with chronic calcific pancreatitis. Electronically signed by: Yuri Lora M.D. 03/11/23 02:[address] 03/10/23 23:43 Exam(s): CT LEFT HIP Without Contrast EXAM: CT Left Lower Extremity Without Intravenous Contrast, Hip CLINICAL HISTORY: Reason for exam: fall, pain. TECHNIQUE: Axial computed tomography images of the left hip without intravenous contrast. Automated exposure control was utilized for the study. A dose lowering technique was utilized adhering to the principles of ALARA. COMPARISON: No relevant prior studies available. FINDINGS: Bones/joints: Minimally displaced left intertrochanteric hip fracture. 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 No dislocation. No evidence of pathologic fracture. Soft tissues: Unremarkable. IMPRESSION: Minimally displaced left intertrochanteric hip fracture. Electronically signed by: Yuri Lora M.D. 03/11/23 02:23 AM MDM Narrative Prior records/ancillary studies reviewed. Triage Nursing notes reviewed. Additional history obtained from EMS. The patient's history was concerning for traumatic injury Differential diagnosis: Etiologies such as fracture, dislocation, intra-abdominal, pneumothorax, intrathoracic , intracranial, neurologic, as well as other traumatic pathologies were entertained. Physical examination findings: As above. The patients vitals were stable. ER treatment provided: Wound care by nursing Patient was emergently sent down for CAT scan as he hit his head and is on Xarelto An order was placed for continuous cardiac monitoring. The monitor shows a rate of 60-100 with a sinus rhythm per my interpretation. I did attempt to obtain the patient's records from [place] but unfortunately records department was closed. On reassessment the patient felt better. Vital signs were stable. Diagnostic interpretation by me: A 12 lead ECG revealed no emergent pathology. Ordered for dyspnea EKG: Normal sinus, right bundle, left anterior fascicular block, impression normal sinus rhythm with right bundle branch block left anterior fascicular block independently interpreted by myself The labs Independently Interpreted by myself revealed urine concerning for infection sent for culture. Hyperglycemia with mild DKA. Blood cultures pending Elevated troponin most likely type II from patient having infection in DKA Imaging studies: Hip x-ray concerning for intertrochanteric hip fracture per my independent interpretation Chest x-ray with no acute consolidation, pneumothorax or free air per my independent interpretation CTs of the head C-spine abdomen pelvis and hip read by radiology and reviewed by myself Consultation: A consultation was placed with hospitalist. The case was discussed and diagnostics were reviewed. The patient was admitted to their service. This appears to be consistent with DKA, UTI with stone, hip fracture, fall, and head injury on Coumadin. Patient was immediately sent down to CAT scan as he is on Xarelto with a head injury for rule out intracranial bleed . Labs and diagnostics were independently interpreted by myself. 2 lines were placed. He was hydrated and medicated as above. He was started on insulin drip; he was given antibiotics. Blood cultures are pending. Patient was admitted to the medical team. He was reassessed multiple times. Blood sugar improved. Zhang was placed for hip fracture. By the evaluation outlined above emergent etiologies such as dislocation, pneumothorax, pulmonary contusion, hemothorax, intracranial, neurologic,as well as others were deemed relatively unlikely. The pt informed about the findings as listed above. All questions were answered and pleased with the treatment The chart was completed utilizing [employer] voice recognition software. Grammatical errors, random word insertions, pronoun errors, and incomplete sentences are an occassional consequence of this system due to software limitations, ambient noise, and hardware issues. Any formal questions or concerns about the content, text, or information contained within the body of this dictation should be directly addressed to the physician assistant education director for clarification. Impression & Plan DKA (diabetic ketoacidosis), Fall from standing, Complicated UTI (urinary tract infection), Kidney stone on right side, Hip fracture, left, Elevated troponin, Elevated serum creatinine Discharge Plan Visit Data Chief Complaint: Hip Pain Stated Complaint: FALL/HIT HEAD/lt. HIP AND WRIST PAIN ED Provider: Siddharth Sears ED Midlevel Provider: Ivy Sims Discharge Problem: DKA (diabetic ketoacidosis), Fall from standing, Complicated UTI (urinary tract infection), Kidney stone on right side, Hip fracture, left, Elevated troponin, Elevated serum creatinine Patient Disposition: Admitted As Inpatient Condition: Fair Discharge Instructions Interventions: ED Discharge Assessment Last Done: 03/11/23 03:23 Addendum March 11, 2023 18:51 HPI: The patient is an 86-year-old gentleman with a past medical history of atrial fibrillation on Xarelto, type 2 diabetes on insulin who presents to the emergency department for evaluation of a fall occurring around 1700 this evening when he tripped falling onto his left side where he hit his hip and head. He was unable to get up secondary to pain. He denies loss of consciousness. The patient recently moved to the area from [place] and has yet to establish care with a primary care doctor. A/P: EKG without overt acute ischemia. Chest x-ray negative for acute cardiopulmonary process. Plain films of pelvis and left hip demonstrates left femoral neck fracture further characterized and confirmed on CT imaging. WBC 14.5K, H/H 10.4/34.3 without prior for comparison. Platelets wnl. Chemistry demonstrates marginally elevated anion gap of 12 and bicarbonate of 21 with initial glucose 600s. VBG with pH of 7.3 and so concern for early DKA. Creatinine 1.6 without prior values for comparison. LFTs are unremarkable. High-sensitivity troponin 21.2, nonspecific.. UA is suspicious for infection with positive nitrites WBCs and 1+ bacteria albeit with epithelial cells present. Respiratory viral panel/bio fire was negative. CT of the abdomen pelvis demonstrates 1.2 x 0.6 cm distal ureteral stone that appears to be nonobstructing without hydronephrosis. CT of the head and cervical spine negative for acute findings. Treatment initiated with IV fluid hydration as well as initiation of insulin drip and ceftriaxone for UTI. Hemodynamically stable. Patient was referred to hospital service for admission and further management. Further management per admitting team. I was consulted by the Advanced Practice Provider.I performed a substantive portion of the visit.This includes aspects of the HPI, MDM, diagnostic interpretations, and disposition/plan. I discussed the case with the [facility], examined the patient, and agree with the findings and plan as documented in HINA Levi's note. DKA (diabetic ketoacidosis) Qualifiers: Diabetes mellitus type: type 2 Diabetes mellitus complication detail: without coma Qualified Code(s): E11.10 - Type 2 diabetes mellitus with ketoacidosis without coma
--- NOTE | 2023-03-10 23:00 | CT Scan Report ---
Exam(s): CT HEAD Without Contrast EXAM: CT Head Without Intravenous Contrast CLINICAL HISTORY: Reason for exam: HI on Xarelto. TECHNIQUE: Axial computed tomography images of the head/brain without intravenous contrast. CTDI is 38.74 mGy and DLP is 624.41 mGy-cm. Automated exposure control was utilized for the study. A dose lowering technique was utilized adhering to the principles of ALARA. COMPARISON: No relevant prior studies available. FINDINGS: Brain: Mild periventricular white matter changes, likely related to microangiopathy. No hemorrhage. Ventricles: Unremarkable. No ventriculomegaly. Bones/joints: Unremarkable. No acute fracture. Soft tissues: Unremarkable. Sinuses: Unremarkable as visualized. No acute sinusitis. Mastoid air cells: Unremarkable as visualized. No mastoid effusion. IMPRESSION: Mild periventricular white matter changes, likely related to microangiopathy. Electronically signed by: Yuri Lora M.D. 03/10/23 22:59 PM
[2023-03-10] MEDS ORDERED: SODIUM CHLORIDE 0.9% 1000ML 1,000 ML IV ONE (23:08)
[2023-03-10 23:10] LABS: Basophils # (auto) 0.03 K/uL (0-0.2); Basophils % (auto) 0.2 %; Hematocrit (blood only) 34.3 % (42.0-52.0); Hemoglobin 10.4 g/dl (14.0-18.0); Immature Granulocytes # (auto) 0.15 K/uL (0.01-0.20); Lymphocytes # (auto) 0.58 K/uL (1.2-3.4); Mean Corpuscular Hemoglobin 24.4 pg (25.0-34.0); Mean Corpuscular Hgb Conc 30.3 g/dL (32.0-36.0); Mean Corpuscular Volume 80.3 fL (80.0-100.0); Mean Platelet Volume 10.4 fL (9.4-12.4); Monocytes # (auto) 1.17 K/uL (0.11-0.59); Neutrophils # (auto) 12.65 K/uL (1.40-6.50); Neutrophils % (auto) 86.8 %; Platelet Count 293 K/uL (130-400); RDW Standard Deviation 48.6 fL (36.4-46.3); Red Blood Count 4.27 M/uL (4.70-6.10); White Blood Count 14.58 K/ul (4.8-10.8)
[2023-03-10 23:10] LABS: Appearance Urine Cloudy (Clear); Bacteria Urine Automated 1+ (Negative); Bilirubin Urine Negative (Negative); Blood Urine 2+ (Negative); Color Urine Yellow; Glucose Urine UA 3+ (Negative); Ketones Urine Trace (Negative); Leukocyte Esterase Urine 1+ (Negative); Nitrite Urine Positive (Negative); Protein Urine 1+ (Negative); Specific Gravity Urine 1.028 (1.000-1.030); Urobilinogen Urine Negative (Negative); WBC Urine Automated >30 /hpf (0-5); pH Urine 5.5 (4.5-7.5)
[2023-03-10] MEDS ORDERED: cefTRIAXone SODIUM 2,000 MG/70 ML BAG IV STA (23:16)
[2023-03-10 23:17] LABS: iSTAT Creatinine 1.4 mg/dl (0.6-1.3); iSTAT Hemoglobin 12.9 g/dl (14.0-18.0); iSTAT Ionized Calcium 1.04 mmol/l (1.12-1.32); iSTAT Potassium 5.1 mmol/L (3.3-5.0)
[2023-03-10 23:25] LABS: RBC Urine Automated 0-4 /hpf (0-4)
[2023-03-10 23:38] LABS: Albumin Globulin Ratio 1.4 (0.9-2); Albumin Level 4.2 gm/dl (3.4-5.0); BUN Creatinine Ratio 16.7 (10-20); Bilirubin,Total 0.7 mg/dl (0.2-1.0); Calcium 9.1 mg/dl (8.6-10.3); Creatinine Clr Calc Pharmacy 35.5 ml/min; Est GFR (African American) 44.2 ml/min; Est GFR (Non-African American) 38.1 ml/min; Globulin 3.1 gm/dl (2.5-4.0); Magnesium 1.8 mg/dl (1.7-2.4); Potassium 4.9 mmol/L (3.5-5.1); Total Protein 7.3 gm/dl (6.0-8.3); Troponin I High Sensitivity 21.2 pg/ml (0-20)
--- NOTE | 2023-03-10 23:38 | CT Scan Report ---
Exam(s): CT C SPINE EXAM: CT Cervical Spine Without Intravenous Contrast CLINICAL HISTORY: Reason for exam: HI on Xarelto. TECHNIQUE: Axial computed tomography images of the cervical spine without intravenous contrast. CTDI is 23.48 mGy and DLP is 549.03 mGy-cm. Automated exposure control was utilized for the study. A dose lowering technique was utilized adhering to the principles of ALARA. COMPARISON: No relevant prior studies available. FINDINGS: Vertebrae: Grade 1 anterolisthesis of C7 relative to T1. Otherwise, alignment is maintained with preservation of vertebral body heights. No acute fracture. Discs/spinal canal/neural foramina: No significant bony spinal canal stenosis at any cervical level. C3-4, C4-5, and C5-6 spondylosis with anterior bony spurs. Uncinate spurs and facet hypertrophy cause severe right neural foramen stenosis at the C3-4 level. Facet hypertrophy and uncinate spurs cause moderate bilateral neural foramen stenosis at C4-5. No significant neural foramen stenosis at C5-6. Soft tissues: Unremarkable. IMPRESSION: No acute findings in the cervical spine. Electronically signed by: Yuri Lora M.D. 03/10/23 23:37 PM
[2023-03-10] MEDS ORDERED: STAT IV Infusion **Titration per Protocol STA (23:39)
[2023-03-10] MEDS ORDERED: PHARMACY GLYCEMIC MGMT CONSULT PRN (23:39)
[2023-03-10] MEDS ORDERED: DKA GOAL RANGE 150-250 mg/dl ONE (23:45)
[2023-03-10] MEDS ORDERED: INSULIN REGULAR 250 UNITS in SODIUM CHLORIDE 0.9% 247.5 ML IV SCH (23:45)
[2023-03-10 23:57] LABS: Adenovirus PCR Not Detected (NotDetected); Bordetella parapertussis PCR Not Detected (NotDetected); Bordetella pertussis PCR Not Detected (NotDetected); Chlamydia pneumoniae PCR Not Detected (NotDetected); Coronavirus 229E PCR Not Detected (NotDetected); Coronavirus CoV-2 (COVID19)PCR Not Detected (NotDetected); Coronavirus HKU1 PCR Not Detected (NotDetected); Coronavirus NL63 PCR Not Detected (NotDetected); Coronavirus OC43PCR Not Detected (NotDetected); Human Metapneumovirus PCR Not Detected (NotDetected); Influenza A PCR Not Detected (NotDetected); Influenza B PCR Not Detected (NotDetected); Mycoplasma pneumoniae PCR Not Detected (NotDetected); Parainfluenza Virus 1 PCR Not Detected (NotDetected); Parainfluenza Virus 2 PCR Not Detected (NotDetected); Parainfluenza Virus 3 PCR Not Detected (NotDetected); Parainfluenza Virus 4 PCR Not Detected (NotDetected); Respiratory Syncytial VirusPCR Not Detected (NotDetected); Rhinovirus/Enterovirus PCR Not Detected (NotDetected)
[2023-03-11] MEDS ORDERED: NovoLIN-R BOLUS FROM BAG IV ONE
[2023-03-11 00:53] LABS: Calcium 8.9 mg/dl (8.6-10.3); Creatinine Clr Calc Pharmacy 38.3 ml/min; Est GFR (African American) 48.5 ml/min; Est GFR (Non-African American) 41.9 ml/min; Phosphorus 3.3 mg/dl (2.5-4.9); Potassium 4.5 mmol/L (3.5-5.1)
[2023-03-11 00:57] LABS: Troponin I High Sensitivity 21.6 pg/ml (0-20)
[2023-03-11] MEDS ORDERED: MoRPHine SULFATE 4 MG/ML 1 ML CARP\\VIAL IV STA (01:12)
--- NOTE | 2023-03-11 02:24 | CT Scan Report ---
Exam(s): CT LEFT HIP Without Contrast EXAM: CT Left Lower Extremity Without Intravenous Contrast, Hip CLINICAL HISTORY: Reason for exam: fall, pain. TECHNIQUE: Axial computed tomography images of the left hip without intravenous contrast. Automated exposure control was utilized for the study. A dose lowering technique was utilized adhering to the principles of ALARA. COMPARISON: No relevant prior studies available. FINDINGS: Bones/joints: Minimally displaced left intertrochanteric hip fracture. 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 No dislocation. No evidence of pathologic fracture. Soft tissues: Unremarkable. IMPRESSION: Minimally displaced left intertrochanteric hip fracture. Electronically signed by: Yuri Lora M.D. 03/11/23 02:23 AM
[2023-03-11] MEDS ORDERED: LANTUS PER UNIT CHARGE SC STA ×2 (02:27→05:07)
--- NOTE | 2023-03-11 02:30 | History & Physical Report ---
Date of Service March 11, 2023 Assessment & Plan (1) DKA (diabetic ketoacidosis): Plan: Patient is an 87-year-old male with a past medical history of type 2 diabetes, atrial fibrillation, previous complicated UTIs, history of Whipple procedure, and chronic pancreatitis who presents to the hospital after experiencing a fall. Patient is found to be in diabetic ketoacidosis likely secondary to urinary tract infection associated with a right kidney stone. Patient is currently receiving insulin and aggressive IV fluids. Patient is hemodynamically stable and being admitted for continued treatment and monitoring. -Admit to telemetry -Months likely an acute exacerbation due to urinary tract infection as below, suspect patient has had uncontrolled diabetes for some -NPO, hold metformin -Initially on insulin drip and gap has since closed and sugars gradually i mproving, switch to subcutaneous insulin -Sugar goal 150-250, pharmacy glycemic consult placed, appreciate recommendations -Every hour blood sugar checks -NSS at 250 cc/hr, add D5 when glucose less than 200 and acidemia persists -Every 4 hour BMP, VBG, phos checks -Patient will likely need additional glycemic control outpatient, A1c in the morning to evaluate average blood sugar in the past 3 months (2) Complicated UTI (urinary tract infection): Plan: - Started on Rocephin in ED, continue 2 g daily -Urine and blood cultures obtained prior to antibiotic administration, follow cultures and sensitivities -Likely secondary to kidney stone as below (3) Kidney stone on right side: Plan: - Noted in the right ureter, consult urology, appreciate recommendations -Pt not in pain from stone, asymptomatic -n.p.o. in case procedure is needed (4) Hip fracture, left: Plan: - Secondary to to fall from a standing height -Consult orthopedic surgery, appreciate recommendations -N.p.o. in case procedure is needed -Xarelto held in the setting of fall with fracture likely requiring intervention -Pain control with IV Tylenol, morphine as needed (5) Elevated troponin: Plan: - Suspect demand ischemia in the setting of infection and DKA, no chest -Mildly elevated BNP as well, echocardiogram in the morning -Continue to trend troponin to peak (6) Elevated serum creatinine: Plan: - Pain unsure if patient has CKD or if this is an JENN -Continue to trend, suspect CKD secondary to uncontrolled diabetes, A1c as above -Renally dose medications as needed (7) Atrial fibrillation: Plan: - Likely paroxysmal atrial fibrillation as patient is in sinus rhythm at the time of my exam -Hold Xarelto as above -Continue metoprolol succinate 50 mg daily (8) BPH (benign prostatic hyperplasia): Plan: - Continue finasteride (9) History of Whipple procedure: Plan: - Noted, evidence of chronic calcific pancreatitis on CT (10) Fall from standing: Plan: - 2 likely secondary to acute complicated UTI and DKA as above -Head injury negative at this time, but hip fracture as above -With this fragility fracture, patient does qualify for osteoporosis -PT and OT ordered, appreciate recommendation Plan diet: N.p.o., aggressive fluid resuscitation via IV Disposition: Admit to telemetry for DKA, complicated UTI, hip fracture treatmeant DVT prophylaxis: None CODE STATUS: Full code as discussed with patient. History of Present Illness Chief Complaint: Fall Primary Care Provider: NO PCP Patient is an 87-year-old male with a past medical history of type 2 diabetes, atrial fibrillation, previous complicated UTIs, history of Whipple procedure, and chronic pancreatitis who presents to the hospital after experiencing a fall. History goes that the patient was out to dinner this evening and as he was getting out of the car and turned to walk on the sidewalk, the patient fell but he does not remember how. Not sure if he tripped or if he collapsed. Reports that he does not feel that he lost consciousness. He does report that he hit his head and his left hip is quite painful and requesting pain medication. Denies any nausea or vomiting. Patient is a type II diabetic and only takes metformin at home. Patient overall is not the best historian on his health and chronic medical conditions. He is able to tell me that he has a history of A- fib, type 2 diabetes and some of the medications that he is taking, but does have difficulty describing other medications that he is taking. He informs me that his son will bring his medications tomorrow morning. He is on Xarelto for A-fib clot prophylaxis. Patient denies ever having a heart attack or stroke. Denies any smoking history. Drinks only socially and has been month since his last drink. Denies missing any doses of medication. Of note, patient recently moved from [place] to [place] and he does not have a primary care provider in the area as of yet. He does describe to me that he has a history of complicated urinary tract infections in the past that have required extensive antibiotic treatment and he does state at one point he was on 2 very broad- spectrum antibiotics for a long time in order to get adequately treated. I req uest for the patient's records have been made but we will not be able to get these until tomorrow at the earliest. Currently, patient is alert and oriented x3 and does report some pain in his left hip. Otherwise overall doing okay and has no other complaints at this time. ED course: Patient was seen by one of our ED providers. Labs were significant for a white blood cell count of 14.5, VBG pH of 7.3, sodium of 131, potassium of 5.1, glucose of 649, high-sensitivity troponin of 21.2, BNP of 151, and a positive urinalysis for protein, glucose, trace ketones, blood, nitrites, leukocyte esterase, white blood cells, and bacteria. Hip CT did reveal a minimally displaced left intertrochanteric hip fracture, abdomen and pelvic CT did show a 1.2 x 0.6 cm right ureteral calculus without hydronephrosis, and chest x-ray does appear to show borderline cardiomegaly with increased vascular markings. Head CT and neck CT were negative. Due to elevated sugar and mild acidemia, patient was started on DKA protocol and put on a insulin drip and aggressive IV fluid. Patient was also given a dose of Rocephin. The hospitalist service was then consulted for admission and further treatment. Allergies Allergy/AdvReac Type Severity Reaction Status Date / Time heparin AdvReac Thrombocyto Verified 03/11/23 02:28 penia Home Medications Medication Instructions Recorded Confirmed Type ascorbic acid (vitamin C) 500 mg 0 mg PO DAILY 03/11/23 03/11/23 History tablet (Vitamin C) cholecalciferol (vitamin D3) 25 0 mcg PO DAILY 03/11/23 03/11/23 History mcg (1,000 unit) tablet (Vitamin D3) finasteride 5 mg tablet 5 mg PO DAILY 03/11/23 03/11/23 History inulin 2 gram chewable tablet 0 g PO DAILY 03/11/23 03/11/23 History (Prebiotic Fiber) lactobacillus combination no.4 3 0 mmu cells PO DAILY 03/11/23 03/11/23 History billion cell capsule (Probiotic) metformin 500 mg tablet 1,000 mg PO BID 03/11/23 03/11/23 History metoprolol succinate 50 mg 50 mg PO DAILY 03/11/23 03/11/23 History tablet,extended release 24 hr multivitamin 1 tab PO DAILY 03/11/23 03/11/23 History pantoprazole 40 mg tablet,delayed 40 mg PO DAILY 03/11/23 03/11/23 History release rivaroxaban 15 mg tablet (Xarelto) 15 mg PO DAILY 03/11/23 03/11/23 History acetaminophen 325 mg tablet 650 mg PO 0500,0900,1300,1700,2100 03/18/23 Rx #90 tabs cholecalciferol (vitamin D3) 125 50,000 unit PO Q7D #7 tabs 03/18/23 Rx mcg (5,000 unit) tablet oxycodone 5 mg tablet 5 - 10 mg PO Q4H PRN pain #10 tabs 03/18/23 Rx polyethylene glycol 3350 17 gram 17 g PO DAILY PRN constipation 4 03/18/23 Rx oral powder packet (Miralax) weeks #100 ea sulfamethoxazole 800 2 tab PO Q12H 4 days #16 tabs 03/18/23 Rx mg-trimethoprim 160 mg tablet (Bactrim DS) tramadol 50 mg tablet 50 - 100 mg PO Q4H PRN pain #10 03/18/23 Rx tabs Past Med/Surg History Medical History Atrial fibrillation BPH (benign prostatic hyperplasia) Complicated UTI (urinary tract infection) DKA (diabetic ketoacidosis) Hip fracture, left Kidney stone on right side Surgical History History of Whipple procedure Social History (Updated 03/11/23 @ 11:28 by Chidi Lopez PA-C) Smoking Status: Never smoker Second Hand Exposure: No; Do You Dip or Chew Tobacco: No; Hx Alcohol Use: Yes Alcohol type: wine Hx Substance Use: No Preferred Language: Hungarian Communication Ability: Effective Communication Tools: Other Oracle Technical Architect Required: Yes Beliefs That Will Affect Care: None marital status: / Current Living Situation: Family Feels Safe at Home: Yes Assistive Devices: Glasses Review of Systems Review of Systems: All systems reviewed & are unremarkable except as noted in HPI & below Physical Exam Constitutional: WD/WN, vitals as above Eyes: + anicteric sclerae ENMT: external ear and nose normal, oropharynx normal Neck: trachea midline, no thyromegaly Respiratory: normal respiratory effort, lungs clear to auscultation Cardiovascular: RRR, no murmur, no edema Gastrointestinal (Abdomen): Inspection/Auscultation: abdomen normal to inspection and normal bowel sounds Percussion/Palpation: abdomen soft Musculoskeletal: Head/Neck/Chest: normocephalic and head atraumatic Skin: There is abrasion on the left forehead without evidence of hematoma. Skin was otherwise normal. Neurologic: moves all extremities Psychiatric: A+Ox3, euthymic affect Results & Data Results & Data Vital Signs (Past 12 Hours) Vital Signs Temp Pulse Pulse Resp BP BP Pulse Ox 03/11/23 01:06 91 H 18 150/84 H 96 03/10/23 23:03 85 18 94 03/10/23 22:39 36.7 C 85 18 177/86 H 93 O2 Del Method 03/11/23 01:06 Room Air 03/10/23 23:03 Room Air 03/10/23 22:39 Room Air Supervising Physician Co-Signing Physician Notes Attending addendum: I have physically seen this patient, have supervised the medical residents activities, and agree with the H&P unless as otherwise noted. Assessment and Plan: DKA- Glucose 649 on admission Likely triggered by UTI Insulin drip per protocol sugar goal and anion gap follow-up as noted NSS at 250 mils per hour, add D5 when glucose is less than 250 Every 4 hours BMP, VBG and phosphorus Check hemoglobin A1c Urinary tract infection/right ureteral stone- Follow urine culture and sensitivity Ceftriaxone 2 g IV daily IV fluids as noted Consult urology Left hip fracture n.p.o. after midnight Hold Xarelto Check an anti-Xa. Start heparin drip if subtherapeutic Elevated troponin/atrial fibrillation- Troponin 21.2 on admission Likely supply demand mismatch type II Follow serially on telemetry Continue metoprolol succinate with hold parameters Remaining orders and notations as noted
--- NOTE | 2023-03-11 02:37 | CT Scan Report ---
Exam(s): CT ABDOMEN + PELVIS Without Contrast EXAM: CT Abdomen and Pelvis Without Intravenous Contrast CLINICAL HISTORY: Reason for exam: DKA, UTI, ? pyelo. TECHNIQUE: Axial computed tomography images of the abdomen and pelvis without intravenous contrast. Automated exposure control was utilized for the study. A dose lowering technique was utilized adhering to the principles of ALARA. COMPARISON: No relevant prior studies available. FINDINGS: Lung bases: Bilateral dependent atelectasis. No mass. No consolidation. ABDOMEN: Liver: Unremarkable. Gallbladder and bile ducts: Pneumobilia within expected limits. No calcified stones. No ductal dilation. 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 No ductal dilation. Spleen: Unremarkable. No splenomegaly. Adrenals: Unremarkable. No mass. Kidneys and ureters: 0.2 cm nonobstructing left lower pole renal calculus. 1.2 x 0.6 cm distal right ureteral calculus best seen on series 300 image 54. The right ureter inserts more laterally than typical. It is unusual that there is no hydronephrosis of the right kidney. Stomach and bowel: Unremarkable. No obstruction. No mucosal thickening. PELVIS: Appendix: No findings to suggest acute appendicitis. Bladder: Right lateral bladder diverticulum. No stones. Reproductive: Unremarkable as visualized. ABDOMEN and PELVIS: Intraperitoneal space: Unremarkable. No free air. No significant fluid collection. Bones/joints: Left intertrochanteric hip fracture. No dislocation. Soft tissues: Unremarkable. Vasculature: Unremarkable. No abdominal aortic aneurysm. Lymph nodes: Unremarkable. No enlarged lymph nodes. IMPRESSION: 1.2 x 0.6 cm distal right ureteral calculus best seen on series 300 image 54. The right ureter inserts more laterally than typical. It is unusual that there is no hydronephrosis of the right kidney. Status post Whipple surgery. Remaining pancreas has coarse calcifications consistent with chronic calcific pancreatitis. Electronically signed by: Yuri Lora M.D. 03/11/23 02:36 AM
[2023-03-11] MEDS ORDERED: MoRPHine SULFATE 2 MG/ML CARP IV PRN (03:31)
[2023-03-11] MEDS ORDERED: ACETAMINOPHEN 1,000 MG/100 ML VIAL IV PRN (03:31)
[2023-03-11] MEDS ORDERED: POLYETHYLENE (MIRALAX) 17 GM PACK PO PRN (03:48)
[2023-03-11] MEDS ORDERED: ACETAMINOPHEN 325 MG TAB PO PRN (03:48)
[2023-03-11] MEDS ORDERED: ONDANSETRON INJ 2 MG/ML 2 ML VIAL IV PRN ×2 (03:48→15:06)
[2023-03-11] MEDS ORDERED: GLUCOSE 10 TAB/TUBE PO PRN (04:00)
[2023-03-11] MEDS ORDERED: DEXTROSE 50% 50 ML SYRINGE IV PRN (04:00)
[2023-03-11] MEDS ORDERED: GLUCAGON FOR INJ 1 MG VIAL IM PRN (04:00)
[2023-03-11] MEDS ORDERED: GLUCOSE 40% GEL 15 GM TUBE PO PRN (04:00)
[2023-03-11] MEDS ORDERED: CARBOHYDRATES FOR HYPOGLYCEMIA PO PRN (04:00)
[2023-03-11 04:30] LABS: BUN Creatinine Ratio 17.9 (10-20); Calcium 8.8 mg/dl (8.6-10.3); Creatinine Clr Calc Pharmacy 42.9 ml/min; Est GFR (African American) 55.6 ml/min; Phosphorus 2.4 mg/dl (2.5-4.9); Potassium 3.6 mmol/L (3.5-5.1)
[2023-03-11] MEDS: INSULIN ASPART PER UNIT CHARGE SC SCH ×4 (05:16→20:41)
[2023-03-11] MEDS ORDERED: INSULIN ASPART PER UNIT CHARGE SC STA (06:20)
--- NOTE | 2023-03-11 06:38 | XRay Report ---
XR chest 1V portable CLINICAL HISTORY: Weakness. Fall. COMPARISON STUDY: No previous studies for comparison. FINDINGS: Slight elevation of the right hemidiaphragm. Lungs are clear. There is no pneumothorax or p leural effusion. Skin folds project over the chest. Cardiac size is normal. Mediastinal contours are normal. There is no evidence for pulmonary edema. IMPRESSION: No acute cardiopulmonary findings. ACT 112: Negative or not required by law. Electronically signed by: Fidel Suggs M.D. 03/11/2023 6:37 AM
--- NOTE | 2023-03-11 06:43 | XRay Report ---
XR hip LT 2V w pelvis CLINICAL HISTORY: Left hip pain following fall. COMPARISON: None FINDINGS: Sacroiliac joints and symphysis pubis are intact. No acute proximal right femoral fracture is present. 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 There is a slightly impact ed left femoral neck fracture. In addition, a nondisplaced fracture extends through the intertrochant selam portion of the left femur. IMPRESSION: 1. Acute minimally impacted left femoral neck fracture with additional nondisplaced intertrochanteric component. 2. 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 ACT 112: Negative or not required by law. Electronically signed by: iFdel Suggs M.D. 03/11/2023 6:40 AM
[2023-03-11 06:57] LABS: BUN Creatinine Ratio 19.4 (10-20); Calcium 8.6 mg/dl (8.6-10.3); Creatinine Clr Calc Pharmacy 46.4 ml/min; Est GFR (African American) 61.1 ml/min; Est GFR (Non-African American) 52.7 ml/min; Phosphorus 2.6 mg/dl (2.5-4.9); Potassium 3.7 mmol/L (3.5-5.1)
[2023-03-11 07:03] LABS: INR 1.1 (0.9-1.1); Prothrombin Time 11.7 Seconds (9.0-12.0)
--- NOTE | 2023-03-11 07:16 | Pharmacy Report ---
Pharmacy Glycemic Short Note 2 - Date of Service March 11, 2023 - Glycemic Short BSG Results (Last 24 hours): 03/10/23 03/10/23 03/11/23 22:52 23:00 00:13 Glucose 649 H* 558 H* POC Glucose POC Glucose (other) 646 H* 03/11/23 03/11/23 03/11/23 00:42 01:42 02:53 Glucose POC Glucose 522 H* 366 H* 245 H POC Glucose (other) 03/11/23 03/11/23 03/11/23 03:53 03:54 05:03 Glucose 166 H POC Glucose 180 H 192 H POC Glucose (other) 03/11/23 03/11/23 05:58 06:16 Glucose 199 H POC Glucose 194 H POC Glucose (other) OUTPATIENT ANTIDIABETIC REGIMEN: * metformin * A1c - pending ASSESSMENT: * 87 year old male admitted s/p fall. Also presenting with DKA, concerns for UTI/kidney stone. Type 2 diabetic only on metformin at home. A1c pending. Labs normalizing this AM, therefore was transitioned off insulin drip with Lantus 20 units, continues on novolog SSI only * Patient remains NPO this AM in case of procedure. Plan to continue novolog for today PLAN FOR INPATIENT GLYCEMIC CONTROL: * Hold outpatient oral diabetes medications * Basal insulin * Lantus 20 units x 1 this AM (insulin drip d/c) * Bolus insulin * NovoLog per scale ACHS or Q6hrs while NPO * Goal Range: Low 110 mg/dL - High 140 mg/dL * Correction Factor: 15 mg/dL/unit * Nutritional / Prandial insulin per carb ratio of 1 unit per 5 grams CHO consumed
[2023-03-11 07:24] LABS: Estimated Average Glucose 280 mg/dl; Hemoglobin A1C 11.4 % (4.5-5.6)
[2023-03-11] MEDS ORDERED: INSULIN ASPART PER UNIT CHARGE SC SCH (07:30)
[2023-03-11] MEDS: METOPROLOL SUCC 50MG EXT REL TAB PO SCH (07:38)
--- NOTE | 2023-03-11 07:55 | Hospitalist Progress Note ---
Date of Service March 11, 2023 Assessment & Plan (1) Hip fracture, left: (2) Complicated UTI (urinary tract infection): (3) DKA (diabetic ketoacidosis): (4) Kidney stone on right side: (5) Atrial fibrillation: (6) Elevated troponin: (7) Elevated serum creatinine: (8) History of Whipple procedure: (9) BPH (benign prostatic hyperplasia): (10) Fall from standing: Plan #Diabetic ketoacidosis -HgbA1C: 11.4%. Home dose of metformin 1g PO BID -Blood glucose goal is 150-250 (600+ on admission), pharmacy consult appreciated -Anion gap and acidosis resolved, transitioned to subcutaneous insulin -Repeat BMP, magnesium, phosphorus, VBG #Intertrochanteric hip fracture, left -Minimally displaced. Due to fall from standing height. -Per ortho: will proceed with surgical intervention once Xarelto clears -PRN Tylenol, morphine -PT/OT #Complicated UTI -Likely due to 12mm kidney stone -Continue Rocephin. Urine growing gram positive cocci, possible contaminant. -Blood cultures pending #Kidney stone, right side -03/11/23: cystoscopy, right retrograde pyelogram, right ureteral stent placement -Continue IVF, analgesia as above #Atrial fibrillation -Currently in sinus rhythm -Holding Xarelto due to surgery interventions -Continue metoprolol succinate #Elevated serum creatinine -Will trend creatinine. Suspect CKD due to uncontrolled diabetes. -Renally dose medications #Benign prostatic hyperplasia -Finasteride FENGI: NPO Disposition: Telemetry DVT prophylaxis: none Code Status: Full code Admission and Anticipated Discharge Date Admission Date: March 11, 2023 Supervising Physician Co-Signing Physician Notes Attending attestation Pt seen and examined in concert with [facility]. Dr. Gamal Hilton. In agreement with the documented findings as noted in the resident documentation with any exceptions or additions as noted here. Evaluated post procedurally in bed. Feeling somewhat constipated with impending BM but otherwise well - no hip/back pain presently. On examination, S1/S2 nl RRR no MCG. CTAB. Abd NT/ND BS+ve Diabetic ketoacidosis - A1c of 11.4% bug POIC glucose has returned to appropriate range. Transitioned to SQ insulin, glycemic consult Complicated UTI in the setting of nephrolithiasis s/p stenting - continue abx as ordered, f/u Cx. Urology consult appreciated Intertrochanteric hip fracture, left - ortho consult - surgery pending AC status Atrial fibrillation - sinus - holding rivaroxaban for hip repair Else see resident documentation as noted. Subjective Regarding the fall from standing height that led to his hip fracture, he did not have prodromal symptoms beforehand. He hit his head but had no LOC or lapse in memory. He has no pain with his current analgesia. His last dose of Xarelto was on the morning of 03/10/23. I spoke with urology at the bedside. Moving forward with stent placement today 03/11/23 for his R-sided, 12mm kidney stone. He does not have dysuria (currently has Zhang catheter), red-tinged urine, suprapubic or flank tenderness. No fevers, chills. He has a history of several UTIs, last one being about 1 year ag o. He saw his PCP 1-2 months ago in [place]. At the time he believes his HgbA1C% was in the normal range. Taking metformin 1g BID at home. He has the supplies at home to check his blood sugars but has not checked them regularly since his 's passing. He also has a hard time with dietary control of his diabetes. He has some shortness of breath which has been ongoing for the past month or so. No headache, vision changes, or palpitations. Review of Systems Review of Systems: All systems reviewed & are unremarkable except as noted in HPI & below Physical Exam Physical Exam: Lying supine in bed, NAD Respiratory: room air normal respiratory effort, no conversational dyspnea lungs clear to auscultation bilaterally without crackles or wheeze Cardiovascular: regular rate, rhythm normal S1, S2, no appreciable murmurs extremities warm no cyanosis lower extremities are symmetrical in size, no edema or erythema Gastrointestinal (Abdomen): active bowel sounds, no rebound/guarding/tenderness to palpation no suprapubic tenderness Musculoskeletal: lower extremities appear equal in length, no gross deformities UE strength 5/5 for hand reed dipper, shoulder shrug, shoulder abduction plantar flexion/dorsiflexion of feet is 5/5 bilaterally Skin: Bruising on the left restorationism Several small abrasions on lower extremities Neurologic: Alert, answering questions appropriately CN 2-12 intact Results & Data Results & Data Vital Signs (Past 12 Hours) Vital Signs Temp Pulse Pulse Resp BP BP Pulse Ox 03/11/23 07:00 36.6 C 81 18 98/58 L 94 03/11/23 04:35 78 03/11/23 04:07 36.5 C 75 16 138/68 96 03/11/23 03:00 82 16 110/62 95 03/11/23 01:06 91 H 18 150/84 H 96 03/10/23 23:03 85 18 94 03/10/23 22:39 36.7 C 85 18 177/86 H 93 O2 Del Method 03/11/23 07:00 Room Air 03/11/23 04:35 03/11/23 04:07 Room Air 03/11/23 03:00 Room Air 03/11/23 01:06 Room Air 03/10/23 23:03 Room Air 03/10/23 22:39 Room Air (3) DKA (diabetic ketoacidosis) Diabetes mellitus complication detail: without coma Diabetes mellitus type: type 2 Qualified Code(s): E11.10 - Type 2 diabetes mellitus with ketoacidosis without coma
[2023-03-11] MEDS: FINASTERIDE 5 MG TAB PO SCH (08:03)
[2023-03-11] MEDS: PANTOprazole 40 MG TAB PO SCH (08:03)
[2023-03-11] MEDS: MoRPHine SULFATE 4 MG/ML 1 ML CARP\\VIAL IV PRN ×3 (08:15→23:02)
[2023-03-11] MEDS ORDERED: RIVAROXABAN 15 MG TAB PO SCH (09:00)
--- NOTE | 2023-03-11 09:47 | Urology Consultation ---
Date of Consultation March 11, 2023 Assessment & Plan (1) Complicated UTI (urinary tract infection): (2) Right ureteral stone: (3) BPH (benign prostatic hyperplasia): Plan 87yo/M who presented to the ED after a fall and admitted with DKA, UTI, and Left hip fracture. CT abd pelvis on arrival demonstrated a 12mm distal right ureteral calculus. - Afebrile and hemodynamically stable. - Labs shows -leukocytosis of 14.58, hemoglobin 10.4, creatinine improved from 1.621.24. Continue to trend. - UA suspicious for infection, urine and blood cultures pending. - Given his large right distal ureteral stone and concern for infection, will plan to proceed to OR today for cystoscopy, right retrograde pyelogram, right ureteral stent placement. - Risks and benefits to be reviewed with patient by Dr. Velarde. OR notified. Covid test negative. - Covered with IV Ceftriaxone. Continue antibiotics and tailor as culture data becomes available. - Keep NPO. - Pt also found to have a left hip fx. Discussed with ortho regarding appropriate positioning. - Urology will follow. Attending note: Patient independently assessed, examined, and interviewed. Agree with note as above. Patient's labs have been stable. Did have a JENN which has been improving. Patient has extremely large stone causing what appears to be significant obstruction. Stone has moved down into the mid/distal ureter. Has caused a considerable amount of perinephric stranding. Due to the large size difficult to ascertain if is going to be able to pass. Patient was having some increasing issues. Has a acute hip injury with fracture. Has plans in place in order to undergo treatment. Concerned due to possibility of infection associated with the obstructing stone. Reviewed extensively different options. Patient has long complicated history of urinary issues. Had previously followed with a another urologist in the [facility]. Patient is going to be living in the area moving forward. Patient imaging was all reviewed interpreted by myself. Obstructing stone within the ureter on the right. Risks and benefits discussed at length for procedure. These include bleeding, infection, injury to surrounding tissues or organs, and risks associated with anesthesia. Patient states understanding and agrees to proceed. Will sign consent and schedule. Plan for cystoscopy with possible right stone treatment History of Present Illness Attending Physician: Grzegorz Joaquin MD History of Present Illness 87-year-old male with a past medical history of type 2 diabetes, atrial fibrillation, previous complicated UTIs, history of Whipple procedure, and chronic pancreatitis who presented to the hospital after experiencing a fall. Patient was found to be in diabetic ketoacidosis and with a suspected UTI. He was afebrile and hemodynamically stable on arrival. Labs revealed a white count of 14.58, hemoglobin 10.4, and creatinine 1.62. Urinalysis with 2+ blood, positive nitrite, 1+ LE, 1+bacteria. CT abd pelvis demonstrated a 1.2 x 0.6 cm distal right ureteral calculus. Hip CT showing a minimally displaced left intertrochanteric hip fracture. Blood and urine cultures were obtained. Xarelto placed on hold. He was started on IV Rocephin and admitted to medicine for continued treatment and monitoring. CT abdomen pelvis IMPRESSION- 1.2 x 0.6 cm distal right ureteral calculus best seen on series 300 image 54. The right ureter inserts more laterally than typical. It is unusual that there is no hydronephrosis of the right kidney. Status post Whipple surgery. Remaining pancreas has coarse calcifications consistent with chronic calcific pancreatitis. Patient seen and examined at bedside this AM. Awake, resting in bed on arrival. No acute distress. Reports left sided hip and knee pain. Denies right abdominal, flank or back pain. Denies fevers, chills, nausea, vomiting. Has been NPO. Zhang cath intact. Recently moved to the area from [place]. Reports previously seeing a urologist at [place]. Hx of recurrent UTIs and stones. Hx of BPH on Finasteride. Allergies Allergy/AdvReac Type Severity Reaction Status Date / Time heparin AdvReac Thrombocyto Verified 03/11/23 02:28 [facility] Home Medications Medication Instructions Recorded Confirmed Type ascorbic acid (vitamin C) 500 mg 0 mg PO DAILY 03/11/23 03/11/23 History tablet (Vitamin C) cholecalciferol (vitamin D3) 25 0 mcg PO DAILY 03/11/23 03/11/23 History mcg (1,000 unit) tablet (Vitamin D3) finasteride 5 mg tablet 5 mg PO DAILY 03/11/23 03/11/23 History inulin 2 gram chewable tablet 0 g PO DAILY 03/11/23 03/11/23 History (Prebiotic Fiber) lactobacillus combination no.4 3 0 mmu cells PO DAILY 03/11/23 03/11/23 History billion cell capsule (Probiotic) metformin 500 mg tablet 1,000 mg PO BID 03/11/23 03/11/23 History metoprolol succinate 50 mg 50 mg PO DAILY 03/11/23 03/11/23 History tablet,extended release 24 hr multivitamin 1 tab PO DAILY 03/11/23 03/11/23 History pantoprazole 40 mg tablet,delayed 40 mg PO DAILY 03/11/23 03/11/23 History release rivaroxaban 15 mg tablet (Xarelto) 15 mg PO DAILY 03/11/23 03/11/23 History Patient History Medical History (Updated 03/11/23 @ 11:45 by Johan Mota MD) Atrial fibrillation BPH (benign prostatic hyperplasia) Complicated UTI (urinary tract infection) DKA (diabetic ketoacidosis) Hip fracture, left Kidney stone on right side Surgical History History of Whipple procedure Social History (Updated 03/11/23 @ 11:28 by Chidi Lopez PA-C) Smoking Status: Never smoker Second Hand Exposure: No; Do You Dip or Chew Tobacco: No; Tobacco Cessation Education Requested by Patient: No Hx Alcohol Use: Yes Alcohol type: wine Hx Substance Use: No Preferred Language: Khmer Communication Ability: Effective Lodging Manager Required: Yes Beliefs That Will Affect Care: None marital status: / Current Living Situation: Family Other Information That Helps Us Care for You: No Feels Safe at Home: Yes Safety Concerns: Feels Safe At This Time Assistive Devices: Glasses Review of Systems Review of Systems: All systems reviewed & are unremarkable except as noted in HPI & below Physical Exam Constitutional: no acute distress ENMT: Ears: no hearing impairment Neck: normal visual inspection Respiratory: no respiratory distress and no labored breathing Gastrointestinal (Abdomen): Inspection/Auscultation: abdomen normal to inspection Musculoskeletal: Head/Neck/Chest: normocephalic Skin: Abrasion to left forehead Neurologic: awake Psychiatric: A+Ox3, euthymic affect Results & Data Vital Signs (Past 12 Hours) Vital Signs Temp Pulse Pulse Resp BP BP Pulse Ox 03/11/23 07:00 36.6 C 81 18 98/58 L 94 03/11/23 04:35 78 03/11/23 04:07 36.5 C 75 16 138/68 96 03/11/23 03:00 82 16 110/62 95 03/11/23 01:06 91 H 18 150/84 H 96 03/10/23 23:03 85 18 94 03/10/23 22:39 36.7 C 85 18 177/86 H 93 O2 Del Method 03/11/23 07:00 Room Air 03/11/23 04:35 03/11/23 04:07 Room Air 03/11/23 03:00 Room Air 03/11/23 01:06 Room Air 03/10/23 23:03 Room Air 03/10/23 22:39 Room Air PG Care Time/CCT Total # of Minutes Spent Total Time Spent with Patient: Total time spent is greater than 50% in coordination of care (as documented) at patient's floor/unit and/or counseling patient: Coding Level of Care Code 49970 INT INP/OBS CARE 255MIN Diagnoses Complicated UTI (urinary tract infection) N39.0 Right ureteral stone N20.1 BPH (benign prostatic hyperplasia) N40.0
[2023-03-11] MEDS ORDERED: SODIUM CHLORIDE 0.9% 1000ML 1,000 ML IV SCH (10:45)
--- NOTE | 2023-03-11 11:21 | Orthopedic Consultation ---
Date of Consultation March 11, 2023 Assessment & Plan (1) Hip fracture, left: The patient was educated regarding today's findings. Conservative care measures were discussed. He is normally a fairly active individual. He will need to have the hip fracture fixed if he would like to remain active. Patient is in agreement. He has significant arthritic change within the femoral acetabular joint, and may require total hip replacement in the near future. I will discuss his treatment plan with Dr. Leiva later today. Anticipate likely trochanteric nailing to be done once his Xarelto has cleared. He is being taken to the operating room today by urology for cystoscopy and stent placement due to his 12 mm ureteral stone. I did speak with the urology team regarding appropriate positioning so as to avoid displacing his hip fracture. Continue oral pain medication and IV pain medication as needed for comfort. History of Present Illness Reason for Consultation: Left hip fracture Attending Physician: Grzegorz Joaquin MD History of Present Illness This 87-year-old male with a history of atrial fibrillation, osteoarthritis, BPH, diabetes, and complicated UTIs, is seen today in consultation for left hip fracture. The patient was at home yesterday and turned, losing his balance and falling onto his left side. There was immediate onset of pain. He was seen at the ED and admitted for left hip fracture. He denies any chest pain, shortness of breath, nausea, vomiting, or dizziness at the time of the fall. He does take Xarelto on a regular basis. Last dose was yesterday morning. Allergies Allergy/AdvReac Type Severity Reaction Status Date / Time heparin AdvReac Thrombocyto Verified 03/11/23 02:28 [facility] Home Medications Medication Instructions Recorded Confirmed Type ascorbic acid (vitamin C) 500 mg 0 mg PO DAILY 03/11/23 03/11/23 History tablet (Vitamin C) cholecalciferol (vitamin D3) 25 0 mcg PO DAILY 03/11/23 03/11/23 History mcg (1,000 unit) tablet (Vitamin D3) finasteride 5 mg tablet 5 mg PO DAILY 03/11/23 03/11/23 History inulin 2 gram chewable tablet 0 g PO DAILY 03/11/23 03/11/23 History (Prebiotic Fiber) lactobacillus combination no.4 3 0 mmu cells PO DAILY 03/11/23 03/11/23 History billion cell capsule (Probiotic) metformin 500 mg tablet 1,000 mg PO BID 03/11/23 03/11/23 History metoprolol succinate 50 mg 50 mg PO DAILY 03/11/23 03/11/23 History tablet,extended release 24 hr multivitamin 1 tab PO DAILY 03/11/23 03/11/23 History pantoprazole 40 mg tablet,delayed 40 mg PO DAILY 03/11/23 03/11/23 History release rivaroxaban 15 mg tablet (Xarelto) 15 mg PO DAILY 03/11/23 03/11/23 History Patient History Medical History (Updated 03/11/23 @ 11:27 by Chidi Lopez PA-C) Atrial fibrillation BPH (benign prostatic hyperplasia) Complicated UTI (urinary tract infection) DKA (diabetic ketoacidosis) Kidney stone on right side Surgical History (Updated 03/11/23 @ 11:27 by Chidi Lopez PA-C) History of Whipple procedure Social History (Updated 03/11/23 @ 11:28 by Chidi Lopez PA-C) Smoking Status: Never smoker Second Hand Exposure: No; Do You Dip or Chew Tobacco: No; Hx Alcohol Use: Yes Alcohol type: wine Hx Substance Use: No Preferred Language: Polish Communication Ability: Effective Ortho Rn Required: Yes Beliefs That Will Affect Care: None marital status: / Current Living Situation: Family Feels Safe at Home: Yes Assistive Devices: Glasses Review of Systems Review of Systems: All systems reviewed & are unremarkable except as noted in HPI & below Physical Exam Physical Exam: General: Well-developed, well-nourished, elderly male, in no acute distress. Laying in bed. Alert and oriented. Conversive. Skin: Warm and dry with good turgor. No rashes or lesions. No ecchymosis or erythema. No edema at the hip. Small abrasion present on the left forehead. HEENT: Normocephalic, atraumatic. Eyes PERRLA EOMI. Heart: RRR, no GR. Significant murmur noted 3/6. Peripheral pulses are 2+. Lungs: Clear to auscultation bilaterally. No crackles, rhonchi, or wheezing. Good air movement. Abdomen: Bowel sounds present x4. Infrequent. Soft and nontender. No organomegaly. No masses. Musculoskeletal: The patient has discomfort with palpation around his left hip. He is sitting with the leg slightly externally rotated. No leg length discrepancy noted. Intact motor function of the knee, ankle, and toes. Hip motion was not attempted. Neurologic: Gross sensation is intact across both lower extremities by soft touch. Results & Data Vital Signs (Past 12 Hours) Vital Signs Temp Pulse Pulse Resp BP Pulse Ox O2 Del Method 03/11/23 10:59 36.6 C 68 18 92/49 L 94 Room Air 03/11/23 09:01 Room Air 03/11/23 07:00 36.6 C 81 18 98/58 L 94 Room Air 03/11/23 04:35 78 03/11/23 04:07 36.5 C 75 16 138/68 96 Room Air 03/11/23 03:00 82 16 110/62 95 Room Air 03/11/23 01:06 91 H 18 150/84 H 96 Room Air Laboratory Results CBC obtained last night shows a white count of 14.58. H&H of 10.4 and 34.3. Sodium 132 and potassium of 5.1. BUN of 27 with creatinine 1.62. Glucose level last night was 649. Recheck this morning was 212. Diagnostic Findings Regular radiographic imaging and CT imaging of the hip was obtained last evening. It shows a nondisplaced intertrochanteric fracture. There is significant osteoarthritic change of the femoral acetabular joint.
--- NOTE | 2023-03-11 11:45 | Anesthesiology Consultation ---
Date of Service March 11, 2023 Assessment & Plan (1) Encounter for pre-operative examination: Chart Review Chart Review: Acceptable Risk for Surgery (patient is on xarelto due to A Fib) History Surgery Operation Date: 03/11/23 10:00 Proposed Procedures p Cystoscopy Right Retrograde Pyelogram and Stent Placement - Holden Velarde DO Operation Date: 03/13/23 12:00 Proposed Procedures p Left Troch Nail - Hieu Leiva MD Height/Weight Height: 5 ft 11 in Weight: 80.5 kg Allergies Allergy/AdvReac Type Severity Reaction Status Date / Time heparin AdvReac Thrombocyto Verified 03/11/23 02:28 [facility] Medications Home Medications Medication Instructions Recorded Confirmed Last Taken ascorbic acid (vitamin C) 500 mg 0 mg PO DAILY 03/11/23 03/11/23 Unknown tablet (Vitamin C) cholecalciferol (vitamin D3) 25 0 mcg PO DAILY 03/11/23 03/11/23 Unknown mcg (1,000 unit) tablet (Vitamin D3) finasteride 5 mg tablet 5 mg PO DAILY 03/11/23 03/11/23 Unknown inulin 2 gram chewable tablet 0 g PO DAILY 03/11/23 03/11/23 Unknown (Prebiotic Fiber) lactobacillus combination no.4 3 0 mmu cells PO DAILY 03/11/23 03/11/23 Unknown billion cell capsule (Probiotic) metformin 500 mg tablet 1,000 mg PO BID 03/11/23 03/11/23 Unknown metoprolol succinate 50 mg 50 mg PO DAILY 03/11/23 03/11/23 Unknown tablet,extended release 24 hr multivitamin 1 tab PO DAILY 03/11/23 03/11/23 Unknown pantoprazole 40 mg tablet,delayed 40 mg PO DAILY 03/11/23 03/11/23 Unknown release rivaroxaban 15 mg tablet (Xarelto) 15 mg PO DAILY 03/11/23 03/11/23 03/09/23 Active Medications Generic Name Dose Route Start Last Admin Trade Name Freq PRN Reason Stop Dose Admin Finasteride 5 mg 03/11/23 09:00 03/11/23 08:03 Finasteride 5 Mg Tab PO 04/10/23 08:59 5 mg DAILY PHILIPP Administration Insulin Aspart 0 units 03/11/23 06:00 03/11/23 05:16 Insulin Aspart Per Unit Charge SC 04/10/23 05:59 3 units Q6 PHILIPP Administration Protocol Metoprolol Succinate 50 mg 03/11/23 09:00 03/11/23 07:38 Metoprolol Succ 50mg Ext Rel Tab PO 04/10/23 08:59 Not Given DAILY PHILIPP Morphine Sulfate 4 mg 03/11/23 03:31 03/11/23 08:15 Morphine Sulfate 4 Mg/Ml 1 Ml Carp\Vial IV 03/25/23 03:30 4 mg Q4H PRN Administration Severe Pain (Scale 7, 8, 9,10) Pantoprazole Sodium 40 mg 03/11/23 09:00 03/11/23 08:03 Pantoprazole 40 Mg Tab PO 04/10/23 08:59 40 mg DAILY PHILIPP Administration NPO Date Last Intake of Fluids: 03/11/23 Time Last Intake of Fluids: 00:00 Date Last Intake of Solids: 03/11/23 Time Last Intake of Solids: 00:00 Past Medical History Medical History (Updated 03/11/23 @ 11:45 by Johan Mota MD) Atrial fibrillation BPH (benign prostatic hyperplasia) Complicated UTI (urinary tract infection) DKA (diabetic ketoacidosis) Hip fracture, left Kidney stone on right side Past Surgical History Surgical History History of Whipple procedure Social History Smoking Status: Never smoker Do You Dip or Chew Tobacco: No Hx Alcohol Use: Yes Alcohol type: wine alcohol intake frequency: holidays/special occasions only Hx Substance Use: No Physical Exam Vital Signs Last Vital Signs Temp 36.6 C 03/11/23 10:59 Pulse 68 03/11/23 10:59 Resp 18 03/11/23 10:59 BP 92/49 L 03/11/23 10:59 Pulse Ox 94 03/11/23 10:59 O2 Del Method Room Air 03/11/23 10:59 Testing Laboratory Results 03/10/23 22:52 03/11/23 06:16 PT 11.7 Seconds (9.0-12.0) 03/11/23 06:16 INR 1.1 (0.9-1.1) 03/11/23 06:16 Hemoglobin A1c 11.4 % (4.5-5.6) H 03/11/23 03:54 Urine Color Yellow 03/10/23 22:51 Urine Appearance Cloudy (Clear) A 03/10/23 22:51 Urine pH 5.5 (4.5-7.5) 03/10/23 22:51 Ur Specific [place] 1.028 (1.000-1.030) 03/10/23 22:51 Urine Protein 1+ (Negative) H 03/10/23 22:51 Urine Glucose (UA) 3+ (Negative) H 03/10/23 22:51 Urine Ketones Trace (Negative) H 03/10/23 22:51 Urine Nitrite Positive (Negative) A 03/10/23 22:51 Ur Leukocyte Esterase 1+ (Negative) H 03/10/23 22:51 Urine WBC (Auto) >30 /hpf (0-5) H 03/10/23 22:51 Urine RBC (Auto) 0-4 /hpf (0-4) 03/10/23 22:51 U Hyaline Cast (Auto) 1-5 /lpf (0-5) 03/10/23 22:51 U Epithel Cells (Auto) 10-20 /lpf (0-5) H 03/10/23 22:51 Urine Bacteria (Auto) 1+ (Negative) H 03/10/23 22:51 03/10/23 22:51 Urine Culture - Preliminary Urine,Clean Catch Pin-point growth present, reincubating. 03/11/23 03/11/23 03/11/23 11:00 06:58 05:58 POC Glucose 158 H 212 H 194 H 03/11/23 03/11/23 03/11/23 05:03 03:53 02:53 POC Glucose 192 H 180 H 245 H 03/11/23 03/11/23 01:42 00:42 POC Glucose 366 H* 522 H*
[2023-03-11] MEDS: ACETAMINOPHEN 325 MG TAB PO SCH ×3 (12:00→20:41)
--- NOTE | 2023-03-11 14:41 | XCELERA ---
[id number] \\[id number]
[2023-03-11] MEDS ORDERED: fentaNYL citrate PF 100 MCG/2 ML VIAL ONE (14:52)
[2023-03-11] MEDS ORDERED: fentaNYL citrate PF 100 MCG/2 ML VIAL IV PRN (15:06)
[2023-03-11] MEDS ORDERED: PROMETHAZINE HCL 12.5 MG in SODIUM CHLORIDE 0.9% 50 ML IV PRN (15:06)
[2023-03-11] MEDS ORDERED: ePHEDrine sulfate 50 MG/ML AMP IV PRN (15:06)
[2023-03-11] MEDS ORDERED: FLUMAZENIL 0.1 MG/1 ML 10 ML VIAL IV PRN (15:06)
[2023-03-11] MEDS ORDERED: LABETALOL HCL IV 5 MG/ML 20ML IV PRN (15:06)
[2023-03-11] MEDS ORDERED: NALOXONE HCL 0.4 MG/1 ML VIAL/CARP IV PRN (15:06)
[2023-03-11] MEDS ORDERED: ATROPINE SULFATE 0.1 MG/ML 10ML SYR IV PRN (15:06)
[2023-03-11] MEDS ORDERED: ONDANSETRON INJ 2 MG/ML 2 ML VIAL ONE (15:35)
[2023-03-11] MEDS ORDERED: PROPOFOL IV EMULSION 10 MG/ML 20 ML VIAL IV ONE (15:35)
[2023-03-11] MEDS ORDERED: LIDOCAINE 2% 2 ML VIAL/AMP(20MG/ML) INFIL ONE (15:35)
[2023-03-11] MEDS ORDERED: PHENYLEPHRINE HCL 10 MG/ML VIAL ONE (15:45)
[2023-03-11] MEDS ORDERED: DIATRIZOATE MEGLUMINE 30% 100ML VIAL INSTIL ONE (15:45)
--- NOTE | 2023-03-11 15:48 | Operative Report ---
PG Post Operative Report Pre & Post Diagnosis Obstructing Right Ureteral Stone Same Operation Date: 03/13/23 12:00 <No data on this case meets the specified criteria> I identified the patient and participated in the time-out.: Yes Procedure Cystoscopy with right retrograde pyelogram and stent. Operation Date: 03/13/23 12:00 <No data on this case meets the specified criteria> Surgeon Holden Velarde, II, DO Gas Appliance Repairer None Estimated Blood Loss 1 Findings Consistent with Post-Op Diagnosis Stent placed in good position. Specimens None Drains 6 Fr x 26 Right Anesthesia Type MAC Complications none Disposition Disposition: Recovery Room Indications Patient with obstruction. Risks and benefits discussed at length. Description of Procedure Patient was consented and brought back to the operating room. Patient was placed under anesthesia in the supine position and moved to the dorsal lithotomy position. Patient was prepped and draped in the regular sterile fashion. A time out was completed. A 30degree Cystoscope was placed into the bladder and the entire bladder was examined. The UO's were identified. The UO was cannulized with a catheter and a retrograde pyelogram was completed. A wire was then placed. With the wire in place, a 6 Fr Double J stent was placed. It was confirmed with fluoroscopy. With the stent in place, the bladder was emptied. The scope was removed. The patient was cleaned, aroused from anesthesia, and transferred to the pacu in stable condition having tolerated the procedure well with no complications. I was present and participated in all aspects of the procedure. The patient will be monitored in the PACU until transferred. Plan to followup in approx 1-2 with [facility] to schedule stone treatment. I attest to the content of the Intraoperative Record and any orders documented therein. Any exceptions are noted below.
--- NOTE | 2023-03-11 15:56 | Fluoroscopy Report ---
FL retrograde includes kub CLINICAL HISTORY: RT COMPARISON STUDY: CT of the abdomen and pelvis March 11, 2023. FLUOROSCOPY TIME: 6 seconds. Ka, r: 1.05 mGy FLUOROSCOPIC IMAGES: 4 FINDINGS: Fluoroscopy was provided during right retrograde pyelogram with right ureteral stent insert ion. Distal aspect of the stent is within the bladder. Proximal aspect of the stent is within the upp er collecting system. Zhang balloon within the bladder is present. Densities projecting along the dis stephen aspect of the right ureteral stent could reflect calculi or fragments. IMPRESSION: Fluoroscopy provided during right retrograde pyelogram with right ureteral stent inserti on. ACT 112: Negative or not required by law. Electronically signed by: Fidel Suggs M.D. 03/11/2023 3:54 PM
--- NOTE | 2023-03-11 16:40 | Electrocardiogram Report ---
Test Reason : Blood Pressure : / mmHG Vent. Rate : 086 BPM Atrial Rate : 086 BPM P-R Int : 186 ms QRS Dur : 126 ms QT Int : 392 ms P-R-T Axes : -29 -68 020 degrees QTc Int : 469 ms Normal sinus rhythm Right bundle branch block Left anterior fascicular block Bifascicular block Minimal voltage criteria for LVH, may be normal variant Abnormal ECG No previous ECGs available Confirmed by Vazquez Gauthier ([id number]) on 03/11/2023 4:40:13 PM Referred By: NO PCP Confirmed By:Kavon Gauthier
--- NOTE | 2023-03-11 17:00 | Anesthesiology Progress Note ---
Date of Service March 11, 2023 Anesthesia Post Procedure Vital Signs Vital Signs: Temp Pulse Pulse Resp BP BP Pulse Ox 03/11/23 16:41 36.4 C L 81 19 115/66 95 03/11/23 16:20 74 16 100/56 L 99 03/11/23 16:10 36.4 C L 72 16 98/58 L 97 03/11/23 16:00 87 16 100/59 L 98 03/11/23 15:52 36.0 C L 75 14 95/53 L 94 03/11/23 08:00 85 03/11/23 12:45 37.0 C 75 20 95 03/11/23 10:59 36.6 C 68 18 92/49 L 94 03/11/23 09:01 03/11/23 07:00 36.6 C 81 18 98/58 L 94 03/11/23 04:35 78 03/11/23 04:07 36.5 C 75 16 138/68 96 03/11/23 03:00 82 16 110/62 95 03/11/23 01:06 91 H 18 150/84 H 96 03/10/23 23:03 85 18 94 03/10/23 22:39 36.7 C 85 18 177/86 H 93 O2 Del Method O2 Flow Rate 03/11/23 16:41 Room Air 03/11/23 16:20 Nasal Cannula 2 03/11/23 16:10 Nasal Cannula 2 03/11/23 16:00 Nasal Cannula 2 03/11/23 15:52 Room Air 03/11/23 08:00 03/11/23 12:45 Room Air 03/11/23 10:59 Room Air 03/11/23 09:01 Room Air 03/11/23 07:00 Room Air 03/11/23 04:35 03/11/23 04:07 Room Air 03/11/23 03:00 Room Air 03/11/23 01:06 Room Air 03/10/23 23:03 Room Air 03/10/23 22:39 Room Air Pain Intensity Left Hip: Pain Intensity: 8 Left Wrist: Pain Intensity: 2 Transfer of Care Handoff Completed per policy Notes Mental Status: alert / awake / arousable Patient Amnestic to Procedure: Yes Nausea / Vomiting: adequately controlled Pain: adequately controlled Airway Patency, RR, SpO2: stable & adequate BP & HR: stable & adequate Hydration State: stable & adequate Anesthetic Complications: no major complications apparent
[2023-03-11] MEDS: cefTRIAXone SODIUM 2,000 MG in DEXTROSE 5% 50 ML IV SCH (23:03)
[2023-03-12] MEDS: ACETAMINOPHEN 325 MG TAB PO SCH ×7 (00:20→20:39)
[2023-03-12 06:49] LABS: Basophils # (auto) 0.04 K/uL (0-0.2); Basophils % (auto) 0.4 %; Eosinophils % (auto) 2.1 %; Hematocrit (blood only) 29.2 % (42.0-52.0); Hemoglobin 8.6 g/dl (14.0-18.0); Immature Granulocytes # (auto) 0.08 K/uL (0.01-0.20); Immature Granulocytes % (auto) 0.8 %; Lymphocytes # (auto) 0.47 K/uL (1.2-3.4); Lymphocytes % (auto) 4.8 %; Mean Corpuscular Hgb Conc 29.5 g/dL (32.0-36.0); Mean Corpuscular Volume 81.3 fL (80.0-100.0); Mean Platelet Volume 9.7 fL (9.4-12.4); Monocytes # (auto) 0.58 K/uL (0.11-0.59); Neutrophils # (auto) 8.33 K/uL (1.40-6.50); Neutrophils % (auto) 85.9 %; Platelet Count 221 K/uL (130-400); RDW Coefficient of Variation 17.2 % (11.5-14.5); RDW Standard Deviation 51.2 fL (36.4-46.3); Red Blood Count 3.59 M/uL (4.70-6.10)
[2023-03-12 07:14] LABS: Calcium 8.2 mg/dl (8.6-10.3); Creatinine Clr Calc Pharmacy 43.2 ml/min; Est GFR (African American) 56.1 ml/min; Est GFR (Non-African American) 48.4 ml/min; Magnesium 1.7 mg/dl (1.7-2.4); Phosphorus 3.3 mg/dl (2.5-4.9); Potassium 3.7 mmol/L (3.5-5.1)
--- NOTE | 2023-03-12 07:28 | Hospitalist Progress Note ---
Date of Service March 12, 2023 Assessment & Plan (1) Hip fracture, left: (2) Complicated UTI (urinary tract infection): (3) DKA (diabetic ketoacidosis): (4) Kidney stone on right side: (5) Atrial fibrillation: (6) Elevated troponin: (7) Elevated serum creatinine: (8) History of Whipple procedure: (9) BPH (benign prostatic hyperplasia): (10) Fall from standing: (11) Acute pain of left knee: Nic Ingram is an 87 y/o M with a past medical history of type 2 diabetes on m etformin, atrial fibrillation on Xarelto, previous complicated UTIs, history of Whipple procedure, and chronic pancreatitis who presents to the hospital after experiencing a fall. He was in diabetic ketoacidosis likely secondary to urinary tract infection associated with a right kidney stone and found to have a left intertrochanteric hip fracture. #Intertrochanteric hip fracture, left -Minimally displaced. Due to fall from standing height. -Per ortho: trochanteric nail procedure scheduled for 03/13/23. Xarelto held. -PRN Tylenol, morphine -PT/OT #Complicated UTI -Likely due to 12mm kidney stone. -Urine culture showed MRSA. Continue Rocephin, vancomycin. -Repeat urine culture from Zhang catheter pending -Blood cultures - no growth after 24 hours #Kidney stone, right side -S/p cystoscopy, right retrograde pyelogram, right ureteral stent placement on 03/11/23 -Per urology, planning for stone treatment in 1-2 weeks -Continue IVF, Zhang catheter, analgesia as above #Acute pain of left knee -Due to fall from standing height -X-ray: minimal osteoarthritis, moderate-sized joint effusion. No fracture or dislocation -Analgesia as above #Diabetic ketoacidosis, resolved -HgbA1C: 11.4%. Home dose of metformin 1g PO BID -Blood glucose normalized (600+ on admission), pharmacy consult appreciated -Anion gap and acidosis resolved. Tolerating diet by mouth. -BMP, magnesium, phosphorus, VBG within normal limits. #Atrial fibrillation -Currently in sinus rhythm -Holding Xarelto prior to orthopedic surgery -Continue metoprolol succinate #Elevated serum creatinine -Creatinine improving. Suspect CKD due to uncontrolled diabetes. -Renally dose medications #Benign prostatic hyperplasia -Finasteride FENGI: carb consistent/DM2. NPO at midnight before surgery Disposition: Telemetry DVT prophylaxis: none Code Status: Full code Admission and Anticipated Discharge Date Admission Date: March 11, 2023 Supervising Physician Co-Signing Physician Notes ATTESTATION I also saw the patient and confirmed dangelo portions of the history and exam. I agree with the impression and plan in the resident documentation, and as summarized below. Patient without complaint. Family at bedside. EXAM 92/49, 74, 18, 36.6, 95% on room air Pleasant. Alert. Heart regular Respirations nonlabored, lungs clear Abdomen is soft nontender DATA Labs Hemoglobin 8.6, WBC 9.7 Sodium 138, potassium 3.7, BUN 20, creatinine 1.33 Imaging Knee x-ray dated 03/11/2023 shows soft tissue swelling without acute fracture or dislocation, moderate-sized joint effusion Micro Urine culture collected today at 1411 (about 15 minutes after vancomycin was started) is pending Blood cultures dated 03/10/2023 shows no growth at 24 hours Urine culture dated 03/10/2023, clean-catch, demonstrate Staph aureus MRSA IMPRESSION & PLAN Complicated UTI in the setting of nephrolithiasis, status post stenting Unsure if this represents true infection versus contamination; fortunately, blood cultures are negative Given upcoming surgery, vancomycin added Reculture today, unfortunately was collected shortly after the addition of vancomycin Urology and orthopedics made aware Intertrochanteric fracture of the left hip Dissipated surgery tomorrow Atrial fibrillation Now in sinus Systemic anticoagulation on hold given surgery tomorrow Diabetes Appreciate glycemic consult Additional per student Dr./Resident documentation Subjective Juan Jose tolerated his right-sided ureteral stent placement without concerns. No dysuria or discomfort about his Zhang catheter. No fevers, chills, or hematuria. He is tolerating his diet. His SOB has improved. He is using his incentive spirometry regularly. He has nasal congestion without mucous or sputum production. At baseline he does not have an oxygen requirement or use inhalers. His left hip and left knee pain persist but are adequately controlled with his pain regimen. Hip/knee flexion are limited by pain. There is moderate swelling of his left knee without erythema or warmth. There are small abrasions on the left knee. On 03/13/23 he is scheduled with orthopedic surgery to repair his left-sided trochanteric fracture. Upon discharge he is receptive to the idea of getting a PCP in the [place] area. No palpitations or chest pain. Review of Systems Review of Systems: All systems reviewed & are unremarkable except as noted in HPI & below Physical Exam Physical Exam: Appearance: sitting upright in hospital bed, no acute distress Respiratory: Room air, no conversational dyspnea Normal respiratory effort No rhinorrhea +inspiratory/expiratory wheeze bilaterally, no crackles Cardiovascular: Regular rate and rhythm Normal S1, S2 without murmurs Ankles without edema No cyanosis Gastrointestinal (Abdomen): Active bowel sounds No pain/guarding/rebound to palpation Musculoskeletal: +effusion of the left knee with pain to palpation of the joint line. Abrasions over left knee cap. No erythema. Left-sided knee/hip exam limited due to pain Neurologic: Alert Answering questions appropriately Results & Data Results & Data Vital Signs (Past 12 Hours) Vital Signs Temp Pulse Pulse Resp BP Pulse Ox O2 Del Method 03/12/23 07:10 36.7 C 80 18 108/52 L 92 Room Air 03/12/23 03:11 36.5 C 71 19 97/53 L 92 Room Air 03/11/23 23:00 77 03/11/23 23:20 36.8 C 73 17 95/52 L 93 Room Air (3) DKA (diabetic ketoacidosis) Diabetes mellitus complication detail: without coma Diabetes mellitus type: type 2 Qualified Code(s): E11.10 - Type 2 diabetes mellitus with ketoacidosis without coma
--- NOTE | 2023-03-12 07:54 | XRay Report ---
XR knee LT 1 or 2V routine HISTORY: 87 years-old Male pain, AP and LAT acute left knee pain without reported trauma COMPARISON: None TECHNIQUE: 2 views of the left knee FINDINGS: Moderate size joint effusion. Demineralized appearance of the bones with minimal tricompartmental ost eoarthritis. Mild circumferential soft tissue prominence. No acute fracture, dislocation or osseous e rosion. IMPRESSION: 1. Soft tissue swelling without acute fracture or dislocation. 2. Moderate-sized joint effusion. ACT 112: Negative or not required by law. The above report was generated using voice recognition software. It may contain grammatical, syntax o r spelling errors. Electronically signed by: Jaleel Healy M.D. 03/12/2023 7:53 AM
[2023-03-12] MEDS: INSULIN ASPART PER UNIT CHARGE SC SCH ×4 (08:22→20:33)
[2023-03-12] MEDS: FINASTERIDE 5 MG TAB PO SCH (08:28)
[2023-03-12] MEDS: PANTOprazole 40 MG TAB PO SCH (08:28)
[2023-03-12] MEDS: METOPROLOL SUCC 50MG EXT REL TAB PO SCH (08:29)
--- NOTE | 2023-03-12 08:51 | Urology Progress Note ---
Date of Service March 12, 2023 Assessment & Plan (1) Complicated UTI (urinary tract infection): (2) Right ureteral stone: (3) BPH (benign prostatic hyperplasia): Plan 87yo/M who presented to the ED after a fall and admitted with DKA, UTI, and Left hip fracture. CT abd pelvis on arrival demonstrated a 12mm distal right ureteral calculus. - POD #1 s/p Cystoscopy with right retrograde pyelogram and stent. - Afebrile and hemodynamically stable. - Labs shows -leukocytosis improved to 9.70, hemoglobin 8.6, creatinine 1.33. - UCx grew staph aureus MRSA, blood culture no growth x 24 hours - On Ceftriaxone. Vanco added today for MRSA coverage. - Zhang catheter intact, draining clear yellow urine with sediment. Can consider void trial before discharge pending hosp course or we can arrange as outpatient. - Continue supportive care and antibiotic therapy. - Follow cultures and tailor as culture data becomes available. - Plan to maintain the stent with plans for outpatient follow-up with our service to arrange definitive stone treatment and possible voiding trial if the catheter is not removed before then. - Urology will sign-off. Please contact us with any further questions, concerns, or changes in patient status. Admission and Anticipated Discharge Date Admission Date: March 11, 2023 Subjective Patient examined at bedside this AM. Awake, resting in bed on arrival. No acute distress. Tolerating the stent well- no reported stent pain or discomfort. Zhang catheter intact, draining clear yellow urine. Denies fevers, chills, nausea, vomiting. Review of Systems Constitutional: as per Subjective / HPI Gastrointestinal: as per Subjective / HPI Genitourinary: + as per Subjective / HPI Physical Exam Constitutional: no acute distress Respiratory: no respiratory distress and no labored breathing Skin: Abrasion to left forehead Neurologic: awake Psychiatric: A+Ox3, euthymic affect Genitourinary: Zhang catheter intact Results & Data Vital Signs (Past 12 Hours) Vital Signs Temp Pulse Pulse Resp BP Pulse Ox O2 Del Method 03/12/23 08:13 81 03/12/23 07:10 36.7 C 80 18 108/52 L 92 Room Air 03/12/23 03:11 36.5 C 71 19 97/53 L 92 Room Air 03/11/23 23:00 77 06/12/23 23:20 36.8 C 73 17 95/52 L 93 Room Air PG Care Time/CCT Total # of Minutes Spent Total Time Spent with Patient: Total time spent is greater than 50% in coordination of care (as documented) at patient's floor/unit and/or counseling patient: Coding Level of Care Code 65355 SUB INP/OBS CARE 2/35MIN Diagnoses Complicated UTI (urinary tract infection) N39.0 Right ureteral stone N20.1 BPH (benign prostatic hyperplasia) N40.0
--- NOTE | 2023-03-12 09:29 | Orthopedic Progress Note ---
Date of Service March 12, 2023 Assessment & Plan (1) Hip fracture, left: Plan: Patient is doing as anticipated. His pain appears to be controlled with Tylenol at this time. I had ordered ice to be placed on left hip as well as knee to use 20 minutes with a towel layer as needed throughout the day. I was able to review imaging with patient of his hip. He is anticipated for possible surgical intervention tomorrow, 03/13 of the left hip with intertrochanteric nail fixation however there was discussion with Dr. 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 Dr. Leiva was to reach out to a colleague in [place] for discussion. I will discuss further with Dr. Leiva once he is out of the OR this morning. He has been holding Xarelto continue to hold this medication. If we do take him to the operating room he will be n.p.o. at 12 AM 03/13/2023. X-rays were obtained of the left knee no fracture appreciated. He does have a large effusion of the knee. Discussed possible aspiration of this fluid will discuss further with Dr. Leiva. Present on Admission?: Yes Admission and Anticipated Discharge Date Admission Date: March 11, 2023 Subjective Patient is a 87-year-old male who was seen bedside this AM. He has a history of having a left hip fracture with advanced arthritis. He is laying in bed just finished breakfast. He is pleasant and conversive. He states he is not having any pain in the left leg at this time. He reports he just had been given Tylenol about an hour ago and this seems to be controlling his pain. He denies any numbness in the leg. He states the only time he has pain is if he attempts to move it so he has been laying still. He denies any vision changes or headache. He offers no concerns this AM. He denies chest pain, shortness of breath, fever, chills, nausea or vomiting. Review of Systems Review of Systems: Please refer to HPI Physical Exam Physical Exam: General: Well-developed, well-nourished, elderly male, in no acute distress. Laying in bed. Alert and oriented x3. Pleasant and conversive. Skin: Warm and dry with good turgor. No rashes or lesions. No erythema, ecchymosis or edema of the left hip. Small abrasion and ecchymosis present on the left forehead. Musculoskeletal: Left lower extremity is slightly externally rotated patient is able to position in neutral. I do not appreciate any leg length discrepancy at this time. Palpable groin tenderness. There is a large effusion of the left knee. There are superficial abrasions on the left knee. Negative for any concern for infection or open areas. He is able to actively dorsiflex and plantarflex ankle. He is not able to do a straight leg raise. He is able to do a quad set. He is able to slightly flex the knee but stops because the hip pain. Hip motion was not attempted. Neurologic: Gross sensation is intact across both lower extremities by soft touch. Results & Data Vital Signs (Past 12 Hours) Vital Signs Temp Pulse Pulse Resp BP Pulse Ox O2 Del Method 03/12/23 08:13 81 03/12/23 07:10 36.7 C 80 18 108/52 L 92 Room Air 03/12/23 03:11 36.5 C 71 19 97/53 L 92 Room Air 03/11/23 23:00 77 03/11/23 23:20 36.8 C 73 17 95/52 L 93 Room Air Laboratory Results 03/12/23 03/12/23 03/12/23 Range/Units 07:10 06:20 06:20 WBC (4.8-10.8) K/ul RBC (4.70-6.10) M/uL Hgb (14.0-18.0) g/dl Hct (42.0-52.0) % MCV (80.0-100.0) fL MCH (25.0-34.0) pg MCHC (32.0-36.0) g/dL RDW Std Deviation (36.4-46.3) fL RDW Coeff of Billie (11.5-14.5) % Plt Count (130-400) K/uL MPV (9.4-12.4) fL Immature Gran % (Auto) % Neut % (Auto) % Lymph % (Auto) % Bryan % (Auto) % Eos % (Auto) % Baso % (Auto) % Neut # (Auto) (1.40-6.50) K/uL Lymph # (Auto) (1.2-3.4) K/uL Bryan # (Auto) (0.11-0.59) K/uL Eos # (Auto) (0-0.50) K/uL Baso # (Auto) (0-0.2) K/uL Immature Gran # (Auto) (0.01-0.20) K/uL VBG pH 7.37 (7.36-7.41) Sodium 138 (136-145) mmol/L Potassium 3.7 (3.5-5.1) mmol/L Chloride 108 H (98-107) mmol/L Carbon Dioxide 25 (21-32) mmol/L Anion Gap 5 (3-11) BUN 20 (6-23) mg/dl Creatinine 1.33 (0.6-1.4) mg/dl Est Cr Clr Drug Dosing 43.2 ml/min Est GFR ( Amer) 56.1 ml/min Est GFR (Non-Af Amer) 48.4 ml/min BUN/Creatinine Ratio 15.0 (10-20) Glucose 79 (70-99(Fasting)) mg/dl POC Glucose 98 (70-99) mg/dl Calcium 8.2 L (8.6-10.3) mg/dl Phosphorus 3.3 (2.5-4.9) mg/dl Magnesium 1.7 (1.7-2.4) mg/dl Troponin I High Sens (0-20) pg/ml 03/12/23 03/11/23 03/11/23 Range/Units 06:20 20:15 16:46 WBC 9.70 (4.8-10.8) K/ul RBC 3.59 L (4.70-6.10) M/uL Hgb 8.6 L (14.0-18.0) g/dl Hct 29.2 L (42.0-52.0) % MCV 81.3 (80.0-100.0) fL MCH 24.0 L (25.0-34.0) pg MCHC 29.5 L (32.0-36.0) g/dL RDW Std Deviation 51.2 H (36.4-46.3) fL RDW Coeff of Billie 17.2 H (11.5-14.5) % Plt Count 221 (130-400) K/uL MPV 9.7 (9.4-12.4) fL Immature Gran % (Auto) 0.8 % Neut % (Auto) 85.9 % Lymph % (Auto) 4.8 % Bryan % (Auto) 6.0 % Eos % (Auto) 2.1 % Baso % (Auto) 0.4 % Neut # (Auto) 8.33 H (1.40-6.50) K/uL Lymph # (Auto) 0.47 L (1.2-3.4) K/uL Bryan # (Auto) 0.58 (0.11-0.59) K/uL Eos # (Auto) 0.20 (0-0.50) K/uL Baso # (Auto) 0.04 (0-0.2) K/uL Immature Gran # (Auto) 0.08 (0.01-0.20) K/uL VBG pH (7.36-7.41) Sodium (136-145) mmol/L Potassium (3.5-5.1) mmol/L Chloride (98-107) mmol/L Carbon Dioxide (21-32) mmol/L Anion Gap (3-11) BUN (6-23) mg/dl Creatinine (0.6-1.4) mg/dl Est Cr Clr Drug Dosing ml/min Est GFR ( Amer) ml/min Est GFR (Non-Af Amer) ml/min BUN/Creatinine Ratio (10-20) Glucose (70-99(Fasting)) mg/dl POC Glucose 173 H 96 (70-99) mg/dl Calcium (8.6-10.3) mg/dl Phosphorus (2.5-4.9) mg/dl Magnesium (1.7-2.4) mg/dl Troponin I High Sens (0-20) pg/ml 03/11/23 03/11/23 03/11/23 Range/Units 15:55 11:00 09:25 WBC (4.8-10.8) K/ul RBC (4.70-6.10) M/uL Hgb (14.0-18.0) g/dl Hct (42.0-52.0) % MCV (80.0-100.0) fL MCH (25.0-34.0) pg MCHC (32.0-36.0) g/dL RDW Std Deviation (36.4-46.3) fL RDW Coeff of Billie (11.5-14.5) % Plt Count (130-400) K/uL MPV (9.4-12.4) fL Immature Gran % (Auto) % Neut % (Auto) % Lymph % (Auto) % Bryan % (Auto) % Eos % (Auto) % Baso % (Auto) % Neut # (Auto) (1.40-6.50) K/uL Lymph # (Auto) (1.2-3.4) K/uL Bryan # (Auto) (0.11-0.59) K/uL Eos # (Auto) (0-0.50) K/uL Baso # (Auto) (0-0.2) K/uL Immature Gran # (Auto) (0.01-0.20) K/uL VBG pH (7.36-7.41) Sodium (136-145) mmol/L Potassium (3.5-5.1) mmol/L Chloride (98-107) mmol/L Carbon Dioxide (21-32) mmol/L Anion Gap (3-11) BUN (6-23) mg/dl Creatinine (0.6-1.4) mg/dl Est Cr Clr Drug Dosing ml/min Est GFR ( Amer) ml/min Est GFR (Non-Af Amer) ml/min BUN/Creatinine Ratio (10-20) Glucose (70-99(Fasting)) mg/dl POC Glucose 117 H 158 H (70-99) mg/dl Calcium (8.6-10.3) mg/dl Phosphorus (2.5-4.9) mg/dl Magnesium (1.7-2.4) mg/dl Troponin I High Sens 21.7 H (0-20) pg/ml Diagnostic Findings Retrograde Pyelogram 03/11/23 13:00 FL retrograde includes kub CLINICAL HISTORY: RT COMPARISON STUDY: CT of the abdomen and pelvis March 11, 2023. FLUOROSCOPY TIME: 6 seconds. Ka, r: 1.05 mGy FLUOROSCOPIC IMAGES: 4 FINDINGS: Fluoroscopy was provided during right retrograde pyelogram with right ureteral stent insertion. Distal aspect of the stent is within the bladder. Proximal aspect of the stent is within the upper collecting system. Zhang balloon within the bladder is present. Densities projecting along the distal aspect of the right ureteral stent could reflect calculi or fragments. IMPRESSION: Fluoroscopy provided during right retrograde pyelogram with right ureteral stent insertion. ACT 112: Negative or not required by law. Electronically signed by: Fidel Suggs M.D. 03/11/2023 3:54 PM Knee X-Ray 03/11/23 18:44 XR knee LT 1 or 2V routine HISTORY: 87 years-old Male pain, AP and LAT acute left knee pain without reported trauma COMPARISON: None TECHNIQUE: 2 views of the left knee FINDINGS: Moderate size joint effusion. Demineralized appearance of the bones with minimal tricompartmental osteoarthritis. Mild circumferential soft tissue prominence. No acute fracture, dislocation or osseous erosion. IMPRESSION: 1. Soft tissue swelling without acute fracture or dislocation. 2. Moderate-sized joint effusion. ACT 112: Negative or not required by law. The above report was generated using voice recognition software. It may contain grammatical, syntax or spelling errors. Electronically signed by: Jaleel Healy M.D. 03/12/2023 7:53 AM
[2023-03-12] MEDS ORDERED: VANCOMYCIN CONSULT ACTIVE PRN (11:33)
[2023-03-12] MEDS ORDERED: VANCOMYCIN HCL 1,750 MG in SODIUM CHLORIDE 0.9% 500 ML IV ONE (11:45)
[2023-03-12] MEDS ORDERED: VANCOMYCIN HCL 1,000 MG in SODIUM CHLORIDE 0.9% 250 ML IV SCH (11:45)
[2023-03-12] MEDS ORDERED: LANTUS PER UNIT CHARGE SC ONE ×2 (12:00→21:00)
--- NOTE | 2023-03-12 13:43 | Anesthesiology Consultation ---
Date of Service March 12, 2023 Assessment & Plan Chart Review Chart Review: entry specialists initiated History Surgery Operation Date: 03/11/23 10:00 Proposed Procedures p Cystoscopy Right Retrograde Pyelogram and Stent Placement - Holden Velarde DO Operation Date: 03/13/23 09:00 Proposed Procedures p Left Trochanteric Nail Hip - Hieu Leiva MD Height/Weight Height: 5 ft 11 in Weight: 85.6 kg Allergies Allergy/AdvReac Type Severity Reaction Status Date / Time heparin AdvReac Thrombocyto Verified 03/11/23 02:28 penia Medications Home Medications Medication Instructions Recorded Confirmed Last Taken ascorbic acid (vitamin C) 500 mg 0 mg PO DAILY 03/11/23 03/11/23 Unknown tablet (Vitamin C) cholecalciferol (vitamin D3) 25 0 mcg PO DAILY 03/11/23 03/11/23 Unknown mcg (1,000 unit) tablet (Vitamin D3) finasteride 5 mg tablet 5 mg PO DAILY 03/11/23 03/11/23 Unknown inulin 2 gram chewable tablet 0 g PO DAILY 03/11/23 03/11/23 Unknown (Prebiotic Fiber) lactobacillus combination no.4 3 0 mmu cells PO DAILY 03/11/23 03/11/23 Unknown billion cell capsule (Probiotic) metformin 500 mg tablet 1,000 mg PO BID 03/11/23 03/11/23 Unknown metoprolol succinate 50 mg 50 mg PO DAILY 03/11/23 03/11/23 Unknown tablet,extended release 24 hr multivitamin 1 tab PO DAILY 03/11/23 03/11/23 Unknown pantoprazole 40 mg tablet,delayed 40 mg PO DAILY 03/11/23 03/11/23 Unknown release rivaroxaban 15 mg tablet (Xarelto) 15 mg PO DAILY 03/11/23 03/11/23 03/09/23 Active Medications Generic Name Dose Route Start Last Admin Trade Name Freq PRN Reason Stop Dose Admin Acetaminophen 650 mg 03/12/23 13:00 03/12/23 13:10 Acetaminophen 325 Mg Tab PO 04/11/23 12:59 650 mg 0500,0900,1300,1700,2100 PHILIPP Administration Finasteride 5 mg 03/11/23 09:00 03/12/23 08:28 Finasteride 5 Mg Tab PO 04/10/23 08:59 5 mg DAILY PHILIPP Administration Ceftriaxone Sodium 2,000 mg/ 70 mls @ 100 mls/hr 03/12/23 00:00 03/11/23 23:5 0 Dextrose IV 03/22/23 00:00 Infused Q24H PHILIPP Infusion Protocol Vancomycin HCl 1,750 mg/ 535 mls @ 200 mls/hr 03/12/23 11:45 03/12/23 13:11 Sodium Chloride IV 03/12/23 14:25 200 mls/hr ONE ONE Administration Insulin Aspart 0 units 03/11/23 21:00 03/12/23 13:00 Insulin Aspart Per Unit Charge SC 04/10/23 20:59 9 units ACHS PHILIPP Administration Protocol Metoprolol Succinate 50 mg 03/11/23 09:00 03/12/23 08:29 Metoprolol Succ 50mg Ext Rel Tab PO 04/10/23 08:59 50 mg DAILY PHILIPP Administration Morphine Sulfate 4 mg 03/11/23 03:31 03/11/23 23:02 Morphine Sulfate 4 Mg/Ml 1 Ml Carp\Vial IV 03/25/23 03:30 4 mg Q4H PRN Administration Severe Pain (Scale 7, 8, 9,10) Pantoprazole Sodium 40 mg 03/11/23 09:00 03/12/23 08:28 Pantoprazole 40 Mg Tab PO 04/10/23 08:59 40 mg DAILY PHILIPP Administration NPO Date Last Intake of Fluids: 03/10/23 Time Last Intake of Fluids: 00:00 Last Intake of Fluids Comment: sips and ice chips only Date Last Intake of Solids: 03/10/23 Time Last Intake of Solids: 17:00 Past Medical History Medical History Atrial fibrillation BPH (benign prostatic hyperplasia) Complicated UTI (urinary tract infection) DKA (diabetic ketoacidosis) Hip fracture, left Kidney stone on right side Past Surgical History Surgical History History of Whipple procedure Social History Smoking Status: Never smoker Do You Dip or Chew Tobacco: No Hx Alcohol Use: Yes Alcohol type: wine alcohol intake frequency: holidays/special occasions only Hx Substance Use: No Physical Exam Vital Signs Last Vital Signs Temp 98.1 F 03/12/23 11:16 Pulse 70 03/12/23 11:16 Resp 18 03/12/23 11:16 BP 98/57 L 03/12/23 11:16 Pulse Ox 92 03/12/23 11:16 O2 Del Method Room Air 03/12/23 11:16 O2 Flow Rate 2 03/11/23 16:20 Testing Laboratory Results 03/12/23 06:20 03/12/23 06:20 PT 11.7 Seconds (9.0-12.0) 03/11/23 06:16 INR 1.1 (0.9-1.1) 03/11/23 06:16 Hemoglobin A1c 11.4 % (4.5-5.6) H 03/11/23 03:54 Urine Color Yellow 03/10/23 22:51 Urine Appearance Cloudy (Clear) A 03/10/23 22:51 Urine pH 5.5 (4.5-7.5) 03/10/23 22:51 Ur Specific [place] 1.028 (1.000-1.030) 03/10/23 22:51 Urine Protein 1+ (Negative) H 03/10/23 22:51 Urine Glucose (UA) 3+ (Negative) H 03/10/23 22:51 Urine Ketones Trace (Negative) H 03/10/23 22:51 Urine Nitrite Positive (Negative) A 03/10/23 22:51 Ur Leukocyte Esterase 1+ (Negative) H 03/10/23 22:51 Urine WBC (Auto) >30 /hpf (0-5) H 03/10/23 22:51 Urine RBC (Auto) 0-4 /hpf (0-4) 03/10/23 22:51 U Hyaline Cast (Auto) 1-5 /lpf (0-5) 03/10/23 22:51 U Epithel Cells (Auto) 10-20 /lpf (0-5) H 03/10/23 22:51 Urine Bacteria (Auto) 1+ (Negative) H 03/10/23 22:51 03/10/23 22:51 Urine Culture - Final Urine,Clean Catch Staph aureus MRSA 03/10/23 00:03 Aerobic Blood Culture - Preliminary Blood No growth in Aerobic bottle after 24 hours. Anaerobic Blood Culture - Preliminary No growth in Anaerobic bottle after 24 hours. 03/10/23 23:55 Aerobic Blood Culture - Preliminary Blood No growth in Aerobic bottle after 24 hours. Anaerobic Blood Culture - Preliminary No growth in Anaerobic bottle after 24 hours. 03/12/23 03/12/23 11:15 07:10 POC Glucose 160 H 98 Electrocardiogram Date: 03/10/23 Normal sinus rhythm, rate 86 bpm Right bundle branch block Left anterior fascicular block Bifascicular block Minimal voltage criteria for LVH, may be normal variant Abnormal ECG No previous ECGs available Confirmed by Vazquez Gauthier ([id number]) on 03/11/2023 4:40:13 PM Chest X-Ray Date: 03/10/23 Findings: + NAD Echocardiogram Date: 03/11/23 LV systolic function is normal LV wall motion is normal There is moderate mitral annular calcification
--- NOTE | 2023-03-12 13:59 | Pharmacy Report ---
Pharmacy PK ABX Note - Date of Service March 12, 2023 - Assessment and Plan Assessment 87 year old M receiving vancomycin for treatment of complicated UTI (MRSA). Pertinent microbiologic data includes: urine culture growing MRSA, blood cultures show no growth at 24 hours. POD #1 s/p cystoscopy w/ right retrograde pyelogram and stent placement. Left trochanteric nailing scheduled for tomorrow. Plan is to continue ceftriaxone at this time given recent urologic procedure. SCr has downtrended from admission (1.62 -> 1.33 mg/dL). Unsure of baseline clearance. Day # 1 of antimicrobial therapy. Plan Vancomycin * Loading dose: 1750 mg IV x 1 * Maintenance dose: 1250 mg IV every 24 hours * Regimen is predicted to achieve target AUC/GIL of 400-600 mg/L.hr * Will obtain trough once dose at steady-state or sooner if change in renal function Ceftriaxone * 2 g IV q24h - appropriate Pharmacy will continue to follow and will adjust dose/frequency as necessary. Thank you. Pharmacy has transitioned to AUC monitoring for vancomycin. AUC/GIL is the pre ferred PK/PD target and is associated with decreased risk of nephrotoxicity compared to traditional trough targets.
--- NOTE | 2023-03-12 15:07 | Pharmacy Report ---
Pharmacy Glycemic Short Note 2 - Date of Service March 12, 2023 - Glycemic Short BSG Results (Last 24 hours): 03/11/23 03/11/23 03/11/23 15:55 16:46 20:15 Glucose POC Glucose 117 H 96 173 H 03/12/23 03/12/23 03/12/23 06:20 07:10 11:15 Glucose 79 POC Glucose 98 160 H OUTPATIENT ANTIDIABETIC REGIMEN: * metformin 1 g PO BIDM HbA1c: 11.4% (03/11/23) ASSESSMENT: 03/12/23: * BSGs labile yesterday following transition to SC from insulin gtt * Given multiple BSGs below 100 mg/dL yesterday and fasting, will loosen Novolog and decrease basal today * Patient will be NPO after midnight for surgery tomorrow * POD #1 s/p cystoscopy, now on vancomycin for MRSA UTI 03/11/23: * 87 year old male admitted s/p fall. Also presenting with DKA, concerns for UTI/kidney stone. Type 2 diabetic only on metformin at home. A1c pending. Labs normalizing this AM, therefore was transitioned off insulin drip with Lantus 20 units, continues on novolog SSI only * Patient remains NPO this AM in case of procedure. Plan to continue novolog for today PLAN FOR INPATIENT GLYCEMIC CONTROL: * Hold outpatient oral diabetes medications * Basal insulin * Lantus 10 units SC x 1 with lunch * Lantus 0-5 units SC HS (see EHR for details) * Bolus insulin * NovoLog per scale ACHS or Q6hrs while NPO * Goal Range: Low 110 mg/dL - High 140 mg/dL * Correction Factor: 20 mg/dL/unit * Nutritional / Prandial insulin per carb ratio of 1 unit per 6 grams CHO consumed
[2023-03-12 15:12] LABS: Appearance Urine Turbid (Clear); Bacteria Urine Automated Negative (Negative); Bilirubin Urine Negative (Negative); Blood Urine 3+ (Negative); Color Urine Yellow; Epithelial Cell Urine Auto 0-5 /lpf (0-5); Glucose Urine UA Trace (Negative); Ketones Urine Negative (Negative); Leukocyte Esterase Urine 3+ (Negative); Nitrite Urine Negative (Negative); Protein Urine 2+ (Negative); Specific Gravity Urine 1.014 (1.000-1.030); Urobilinogen Urine Negative (Negative); WBC Urine Automated >30 /hpf (0-5); pH Urine 5.5 (4.5-7.5)
[2023-03-12] MEDS: MoRPHine SULFATE 4 MG/ML 1 ML CARP\\VIAL IV PRN (20:37)
[2023-03-13] MEDS: INSULIN ASPART PER UNIT CHARGE SC SCH ×5 (00:12→20:19)
[2023-03-13] MEDS: cefTRIAXone SODIUM 2,000 MG in DEXTROSE 5% 50 ML IV SCH (00:16)
[2023-03-13] MEDS: ACETAMINOPHEN 325 MG TAB PO SCH ×5 (05:21→20:21)
[2023-03-13] MEDS: VANCOMYCIN HCL 1,250 MG in SODIUM CHLORIDE 0.9% 250 ML IV SCH (05:24)
[2023-03-13] MEDS ORDERED: TRANEXAMIC ACID / 0.7% NACL 1,000 MG/100 ML BAG IV ONE (06:00)
[2023-03-13] MEDS ORDERED: BUPIVACAINE 0.5 % 5 MG/1 ML PF 10ML VIAL ONE (06:31)
[2023-03-13 07:27] LABS: Hematocrit (blood only) 28.7 % (42.0-52.0); Hemoglobin 8.6 g/dl (14.0-18.0); Mean Corpuscular Hemoglobin 23.9 pg (25.0-34.0); Mean Corpuscular Volume 79.7 fL (80.0-100.0); Mean Platelet Volume 10.1 fL (9.4-12.4); Platelet Count 223 K/uL (130-400); RDW Coefficient of Variation 17.4 % (11.5-14.5); RDW Standard Deviation 50.4 fL (36.4-46.3)
[2023-03-13 07:46] LABS: BUN Creatinine Ratio 16.7 (10-20); Creatinine Clr Calc Pharmacy 45.7 ml/min; Est GFR (African American) 59.9 ml/min; Est GFR (Non-African American) 51.7 ml/min; Potassium 3.6 mmol/L (3.5-5.1)
[2023-03-13] MEDS ORDERED: fentaNYL citrate PF 100 MCG/2 ML VIAL ONE ×2 (07:47→10:27)
[2023-03-13] MEDS ORDERED: LIDOCAINE 2% 2 ML VIAL/AMP(20MG/ML) INFIL ONE ×2 (07:47→07:53)
[2023-03-13] MEDS ORDERED: PROPOFOL IV EMULSION 10 MG/ML 20 ML VIAL IV ONE (07:47)
--- NOTE | 2023-03-13 08:23 | Hospitalist Progress Note ---
Date of Service March 13, 2023 Assessment & Plan (1) Hip fracture, left: (2) Complicated UTI (urinary tract infection): (3) DKA (diabetic ketoacidosis): (4) Kidney stone on right side: (5) Atrial fibrillation: (6) Elevated troponin: (7) Elevated serum creatinine: (8) History of Whipple procedure: (9) BPH (benign prostatic hyperplasia): (10) Fall from standing: (11) Acute pain of left knee: Nic Ingram is an 87 y/o M with a past medical history of type 2 diabetes on m etformin, atrial fibrillation on Xarelto, previous complicated UTIs, history of Whipple procedure, and chronic pancreatitis who presents to the hospital after experiencing a fall. He was in diabetic ketoacidosis likely secondary to urinary tract infection associated with a right kidney stone and found to have a left intertrochanteric hip fracture. #Intertrochanteric hip fracture, left -Minimally displaced. Due to fall from standing height. -Surgical intervention 03/13/23: closed reduction, insertion of a long trochanteric femoral nail -PRN Tylenol, morphine -Resume Xarelto for AFIB on 03/14/23 -PT/OT #Complicated UTI -Likely due to 12mm kidney stone. Continue Rocephin, vancomycin. -Initial urine culture grew MRSA. -Repeat UA from Zhang is infectious; culture had no growth, less than 1,000 colonies. Final report pending. -Blood cultures - no growth after 48 hours #Kidney stone, right side -S/p cystoscopy, right retrograde pyelogram, right ureteral stent placement on 03/11/23 -Per urology, planning for stone treatment in 1-2 weeks -Continue IVF, Zhang catheter, analgesia as above #Acute pain of left knee -Due to fall from standing height. X-ray showed arthritis, effusion, no fracture or dislocation -During hip fracture repair on 03/13, ~75mL of blood was aspirated from left knee -Analgesia as above #Diabetic ketoacidosis, resolved -HgbA1C: 11.4%. Home dose of metformin 1g PO BID -Blood glucose normalized (600+ on admission), pharmacy consult appreciated -Anion gap and acidosis resolved. Tolerating diet by mouth. -BMP, magnesium, phosphorus, VBG within normal limits. #Atrial fibrillation -Tele shows sinus rhythm with some PACs/PVCs -Resume Xarelto 03/14/23 -Continue metoprolol succinate #Elevated serum creatinine -Creatinine improving. Suspect CKD due to uncontrolled diabetes. -Renally dose medications #Benign prostatic hyperplasia -Finasteride FENGI: carb consistent/DM2. NPO at midnight before surgery Disposition: Telemetry DVT prophylaxis: none Code Status: Full code Admission and Anticipated Discharge Date Admission Date: March 11, 2023 Supervising Physician Co-Signing Physician Notes ATTESTATION I also saw the patient and confirmed dangelo portions of the history and exam. I agree with the impression and plan in the resident documentation, and as summarized below. Patient is seen postoperatively, and fortunately is feeling pretty well -pain seems well controlled. EXAM 94/47, 85, 19, 36.6, 99% on nasal cannula 2 L/min Pleasant. Alert. Heart regular Respirations nonlabored DATA Labs Hemoglobin 8.6, WBC 8.9 Sodium 136, potassium 3.6, BUN 21, creatinine 1.26 Micro Urine culture dated 03/12/2023 shows no growth thus far. 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 Pain control per orthopedics, good pain control at the moment Atrial fibrillation Now in sinus Systemic anticoagulation on hold given surgery Diabetes Appreciate glycemic consult Additional per student DrRodrigue/Resident documentation Subjective I spoke to Juan Jose postoperatively. His hip fracture was repaired and about ~75mL of blood was aspirated from his left knee. His hip/knee pain is adequately controlled. He had a bowel movement after surgery without concern and does not have any dysuria from the Zhang catheter. No flank pain. After speaking with telemetry, he had several paroxysms of AFIB which he did not feel. He does not have chest pain, palpitations, or light-headedness. No calf pain or leg swelling. His congestion has improved and he plans on using the incentive spirometry regularly. No sputum production. No fevers, chills. Review of Systems Review of Systems: All systems reviewed & are unremarkable except as noted in HPI & below Physical Exam Physical Exam: Lying supine in hospital bed Respiratory: Room air No conversational dyspnea Anterior lung biswas clear to ausculation Cardiovascular: Regular rate and rhythm Normal S1, S2, no appreciable murmurs Extremities warm without edema Radial pulses 2+ Carotid pulses 2+ Dorsalis pedis pulses 2+ Gastrointestinal (Abdomen): No pain/rebound/guarding to palpation Musculoskeletal: Ice pack around left hip Dry bandage surrounding left knee, no surrounding erythema or purulence Neurologic: Alert, answering questions appropriately Lymphatic: Lower extremities with SCDs bilaterally. Legs are symmetrical without edema or erythema. Results & Data Results & Data Vital Signs (Past 12 Hours) Vital Signs Temp Pulse Pulse Resp BP Pulse Ox O2 Del Method 03/13/23 07:17 36.7 C 84 19 109/68 93 Room Air 03/13/23 03:32 36.9 C 76 18 104/68 93 Room Air 03/12/23 23:59 76 03/12/23 23:53 37.0 C 78 18 99/58 L 93 Room Air (3) DKA (diabetic ketoacidosis) Diabetes mellitus complication detail: without coma Diabetes mellitus type: type 2 Qualified Code(s): E11.10 - Type 2 diabetes mellitus with ketoacidosis without coma
[2023-03-13] MEDS ORDERED: ONDANSETRON INJ 2 MG/ML 2 ML VIAL ONE (09:00)
[2023-03-13] MEDS ORDERED: ROCURONIUM BROMIDE 10 MG/ML 5 ML VIAL IV ONE ×2 (09:00→10:27)
[2023-03-13] MEDS ORDERED: DEXAMETHASONE SOD INJ 4 MG/ML VIAL ONE (09:00)
--- NOTE | 2023-03-13 09:02 | History & Physical Bridge Note ---
Date of Service March 13, 2023 History & Physical Bridge Note I have examined the patient, reviewed the History & Physical and in the interval since the performance of the History & Physical I have noted the following changes of clinical significance: no changes noted
[2023-03-13] MEDS ORDERED: ALBUMIN HUMAN 5% 12.5 GM/250 ML VIAL IV ONE (09:25)
[2023-03-13] MEDS ORDERED: BUPIVACAINE 0.5 % 5 MG/1 ML MPF 30ML VIAL ONE (09:39)
[2023-03-13] MEDS ORDERED: LIDOCAINE 1%/EPINEPHRINE 1:100,000 20 ML VIAL ONE (09:40)
[2023-03-13] MEDS ORDERED: methylPREDNISolone acetate 40 MG/ML VIAL ONE ×2 (09:40→09:57)
[2023-03-13] MEDS ORDERED: ceFAZolin 330 MG/ML 1 GM VIAL ONE (09:44)
[2023-03-13] MEDS ORDERED: PROMETHAZINE HCL 12.5 MG in SODIUM CHLORIDE 0.9% 50 ML IV PRN (09:54)
[2023-03-13] MEDS ORDERED: NALOXONE HCL 0.4 MG/1 ML VIAL/CARP IV PRN (09:54)
[2023-03-13] MEDS ORDERED: ONDANSETRON INJ 2 MG/ML 2 ML VIAL IV PRN (09:54)
[2023-03-13] MEDS ORDERED: LABETALOL HCL IV 5 MG/ML 20ML IV PRN (09:54)
[2023-03-13] MEDS ORDERED: ePHEDrine sulfate 50 MG/ML AMP IV PRN (09:54)
[2023-03-13] MEDS ORDERED: ATROPINE SULFATE 0.1 MG/ML 10ML SYR IV PRN (09:54)
[2023-03-13] MEDS ORDERED: FLUMAZENIL 0.1 MG/1 ML 10 ML VIAL IV PRN (09:54)
[2023-03-13] MEDS ORDERED: TRANEXAMIC ACID / 0.7% NACL 1000MG/100ML BAG IV ONE (10:01)
[2023-03-13] MEDS ORDERED: PHENYLEPHRINE HCL 10 MG/ML VIAL ONE (10:06)
[2023-03-13] MEDS: LIDOCAINE 1% LOCAL 20 ML VIAL ONE ×2 (10:07→11:31)
[2023-03-13] MEDS ORDERED: SUGAMMADEX SODIUM 200 MG/2 ML VIAL IV ONE (11:23)
--- NOTE | 2023-03-13 11:35 | Operative Report ---
Post Operative Report Pre & Post Diagnosis Operation Date: 03/13/23 09:00 <No data on this case meets the specified criteria> Left femoral neck fracture with intertrochanteric extension in the setting of severe osteoarthritis of the hip joint, Left knee effusion with negative x-rays I identified the patient and participated in the time-out.: Yes Procedure Operation Date: 03/13/23 09:00 <No data on this case meets the specified criteria> Closed reduction and insertion of a long trochanteric femoral nail left femur. Aspiration of the left knee Surgeon Heiu Leiva MD Truck [employer] In[employer] Hardy Valerio fellow Estimated Blood Loss 50 (Left Knee Aspiration 100ml blood) Findings Consistent with Post-Op Diagnosis Specimens None Anesthesia Type General Regional Complications none Disposition Accompanied Patient To Recovery: No Disposition: Recovery Room Indications Patient is 87. Diabetic ketoacidosis. Urinary tract complicated infection with MRSA status post stone removal, fall resulting in a unusual hip fracture extending from the lateral femoral neck base to the intertrochanteric region. Nondisplaced. Concomitant hip osteoarthritis. Discussed with arthroplasty service at [facility]. Fracture fixation Recommended.He was on Eliquis and we waited 72 hours after his last dose. Description of Procedure Informed consent. Patient identified. Operative site identified as the left hip and left knee. Preop surgical timeout performed. Preop dose of IV antibiotics given. TXA. Positioned supine on the fracture table. Carefully. Arms were folded across the chest with padding. Torso secured to the table. Padded perineal post. The left leg was carefully placed into gentle longitudinal traction with internal rotation and adduction. The right leg was placed into physiologic abduction external rotation and flexion. Well leg moralez. The hip was prescrubbed prepped and draped in the usual sterile fashion. DVT prophylaxis will be done with early patient mobility and mechanical devices and chemoprophylaxis postoperatively.Fluoroscopic guidance was utilized to confirm alignment and positioning. 6 to 8 cm incision was made in line with the shaft of the femur just proximal to the trochanter. Electrocautery was utilized down to the subcutaneous tissues and fascia. The tip of the trochanter was identified. A guidepin was introduced and adjusted x1 to be in the appropriate position in the center of the shaft on the lateral view and at the tip of the trochanter on the AP view. This guidewire was advanced and then overreamed with the proximal reamer. This was then followed by inserting the intramedullary guide sarah. This was confirmed to be intramedullary in multiplanar fluoroscopy. The length was determined to be 420 mm. A 12.5 mm reamer was inserted to ensure adequate room. The 420 mm sarah was inserted and advanced to the appropriate position. A guidepin was introduced through the triple trocar inserted via a secondary incision laterally. This guidepin was adjusted x1 to the appropriate position into the center of the femoral head in the AP and lateral views. The length was determined and it was overreamed to a depth of 95 mm and a 95 mm spiral blade was inserted. The setscrew was advanced completely and then backed off a half turn. The proximal apparatus was removed. A dynamic distal interlocking screw was inserted using the perfect prairie band technique. Incisions irrigated. The distal 2 incisions were closed with 2-0 Vicryl and nona. The proximal incision was closed with running and interrupted #1 Vicryl for the deep fascia. 0 Vicryl for the fatty space layer. 2-0 Vicryl for the skin with nona. The leg was cleaned with wet and dry sponges and a soft roll dressing was applied Xeroform 4 x 4's ABD foam tape. Hardware inserted was a Synthes trochanteric femoral nail 11 mm in diameter with 130 degree angle 420 mm in length. A 95 mm spiral blade and a 5 mm x 48 mm long distal interlocking screw. Patient awakened. Taken to recovery. Stable condition. No specimens or complications counts were correct and blood loss estimated to be 50 cc. We will restart his blood thinner in the morning. He can weight-bear as tolerated. At the conclusion of the hip procedure the left knee was using sterile technique aspirated yielding approximately 75 cc of blood. No steroid injection was given. A Band-Aid was applied. We will go ahead and get a CT scan of the knee to further evaluate and make him nonweightbearing. I attest to the content of the Intraoperative Record and any orders documented therein. Any exceptions are noted below.
--- NOTE | 2023-03-13 11:56 | Fluoroscopy Report ---
FL hip LT 2-3V CLINICAL HISTORY: LEFT TROCHANTERIC NAIL HIP COMPARISON STUDY: Left hip radiographs March 10, 2023. CT of the left hip March 11, 2023. FLUOROSCOPY TIME: 125.9 seconds. Ka, r: 29.60 mGy FLUOROSCOPIC IMAGES: 4 FINDINGS: Fluoroscopy was provided during open reduction and internal fixation of the left femoral fr acture involving the neck and intertrochanteric portion of the left femur with trochanteric nail. Fra cture alignment appears near anatomic. Hardware is intact. There are no unexpected radiopaque foreign bodies. IMPRESSION: Fluoroscopy provided during open reduction and internal fixation of the proximal left fe moral fracture with trochanteric nail. ACT 112: Negative or not required by law. Electronically signed by: Fidel Suggs M.D. 03/13/2023 11:54 AM
[2023-03-13] MEDS: fentaNYL citrate PF 100 MCG/2 ML VIAL IV PRN ×2 (12:02→12:07)
--- NOTE | 2023-03-13 13:25 | Anesthesiology Progress Note ---
Date of Service March 13, 2023 Anesthesia Post Procedure Vital Signs Vital Signs: Temp Pulse Pulse Resp BP BP Pulse Ox 03/13/23 13:15 83 20 110/68 98 03/13/23 13:05 80 14 115/66 95 03/13/23 12:55 85 15 114/55 L 97 03/13/23 12:45 71 15 126/47 L 110/64 98 03/13/23 12:35 36.4 C L 93 H 15 126/47 L 116/74 98 03/13/23 12:25 98 H 14 116/59 L 117/51 L 97 03/13/23 12:15 103 H 12 112/65 96 03/13/23 12:05 78 19 117/66 119/46 L 96 03/13/23 11:55 82 17 123/66 96 03/13/23 11:45 36.2 C L 83 17 115/66 116/42 L 90 03/13/23 08:33 36.6 C 73 20 114/65 94 03/13/23 07:17 36.7 C 84 19 109/68 93 03/13/23 03:32 36.9 C 76 18 104/68 93 03/12/23 23:59 76 03/12/23 23:53 37.0 C 78 18 99/58 L 93 03/12/23 19:24 37.1 C 81 18 105/66 97 03/12/23 16:35 79 03/12/23 15:36 36.6 C 74 18 92/49 L 95 O2 Del Method O2 Flow Rate 03/13/23 13:15 Nasal Cannula 2 03/13/23 13:05 Nasal Cannula 2 03/13/23 12:55 Nasal Cannula 2 03/13/23 12:45 Nasal Cannula 2 03/13/23 12:35 Nasal Cannula 2 03/13/23 12:25 Nasal Cannula 2 03/13/23 12:15 Nasal Cannula 2 03/13/23 12:05 Nasal Cannula 4 03/13/23 11:55 Nasal Cannula 4 03/13/23 11:45 Room Air 03/13/23 08:33 Room Air 03/13/23 07:17 Room Air 03/13/23 03:32 Room Air 03/12/23 23:59 03/12/23 23:53 Room Air 03/12/23 19:24 Room Air 03/12/23 16:35 06/13/23 15:36 Room Air Pain Intensity Left Hip: Pain Intensity: 3 Left Wrist: Pain Intensity: 2 Left Leg: Pain Intensity: 2 Transfer of Care Handoff Completed per policy Notes Mental Status: alert / awake / arousable Patient Amnestic to Procedure: Yes Nausea / Vomiting: adequately controlled Pain: adequately controlled Airway Patency, RR, SpO2: stable & adequate BP & HR: stable & adequate Hydration State: stable & adequate Anesthetic Complications: no major complications apparent
--- NOTE | 2023-03-13 13:25 | Pharmacy Report ---
Pharmacy Glycemic Short Note 2 - Date of Service March 13, 2023 - Glycemic Short BSG Results (Last 24 hours): 03/12/23 03/12/23 03/13/23 16:09 20:17 00:11 Glucose POC Glucose 141 H 73 99 03/13/23 03/13/23 03/13/23 05:57 06:20 11:46 Glucose 109 H POC Glucose 123 H 142 H OUTPATIENT ANTIDIABETIC REGIMEN: * metformin 1 g PO BIDM HbA1c: 11.4% (03/11/23) ASSESSMENT: 03/13/23: * Blood sugars well controlled yesterday on 10 units basal, 17 units bolus insulin. * NPO today for orthopedic surgery with Dr Leiva - hold AM basal, PRN HS tonight and resume AM basal tomorrow morning 03/12/23: * BSGs labile yesterday following transition to SC from insulin gtt * Given multiple BSGs below 100 mg/dL yesterday and fasting, will loosen Novolog and decrease basal today * Patient will be NPO after midnight for surgery tomorrow * POD #1 s/p cystoscopy, now on vancomycin for MRSA UTI 03/11/23: * 87 year old male admitted s/p fall. Also presenting with DKA, concerns for UTI/kidney stone. Type 2 diabetic only on metformin at home. A1c pending. Labs normalizing this AM, therefore was transitioned off insulin drip with Lantus 20 units, continues on novolog SSI only * Patient remains NPO this AM in case of procedure. Plan to continue novolog for today PLAN FOR INPATIENT GLYCEMIC CONTROL: * Hold outpatient oral diabetes medications * Basal insulin * Hold AM lantus, resume in morning * Lantus 0-5 units SC HS (5 units for BSG > 140) * Bolus insulin * NovoLog per scale ACHS or Q6hrs while NPO * Goal Range: Low 110 mg/dL - High 140 mg/dL * Correction Factor: 20 mg/dL/unit * Nutritional / Prandial insulin per carb ratio of 1 unit per 7 grams CHO consumed
[2023-03-13 13:42] LABS: Hematocrit (blood only) 27.5 % (42.0-52.0); Hemoglobin 8.3 g/dl (14.0-18.0)
[2023-03-13] MEDS: METOPROLOL SUCC 50MG EXT REL TAB PO SCH (14:05)
[2023-03-13] MEDS: FINASTERIDE 5 MG TAB PO SCH (14:05)
[2023-03-13] MEDS: PANTOprazole 40 MG TAB PO SCH (14:06)
[2023-03-13] MEDS: ceFAZolin 2000MG 2,000 MG/15 ML SYR IV SCH (17:20)
[2023-03-13] MEDS ORDERED: TRANEXAMIC ACID / 0.7% NACL 1,000 MG/100 ML BAG IV SCH (17:30)
--- NOTE | 2023-03-13 17:55 | Orthopedic Progress Note ---
Date of Service March 13, 2023 Assessment & Plan (1) Hip fracture, left: Plan Doing well. Most recent H&H postop 8 and 28. Pain is well controlled and neurovascular function intact. Vitals are stable. The patient's knee effusion was bloody. Because of this we will get a CT scan. No weightbearing until we know the results of the CT. We will reexamine his knee tomorrow. He may move the hip and knee as tolerated at this time. His blood thinner and will restart in the morning. He was seen for routine course of postop IV antibiotics. Admission and Anticipated Discharge Date Admission Date: March 11, 2023 Subjective No problems. Pain well controlled. Physical Exam Physical Exam: DP and PT pulse 1+. Sensation intact. 5- out of 5 ankle and toe plantarflexion dorsiflexion and eversion strength. There is no swelling in the left knee. Dressings are clean and dry. Results & Data Vital Signs (Past 12 Hours) Vital Signs Temp Pulse Resp BP BP BP Pulse Ox 03/13/23 15:27 36.6 C 85 19 96/47 L 99 03/13/23 14:00 85 18 120/74 98 03/13/23 13:25 78 16 114/62 96 03/13/23 13:15 83 20 110/68 98 03/13/23 13:05 80 14 115/66 95 03/13/23 12:55 85 15 114/55 L 97 03/13/23 12:45 71 15 126/47 L 110/64 98 03/13/23 12:35 36.4 C L 93 H 15 126/47 L 116/74 98 03/13/23 12:25 98 H 14 116/59 L 117/51 L 97 03/13/23 12:15 103 H 12 112/65 96 03/13/23 12:05 78 19 117/66 119/46 L 96 03/13/23 11:55 82 17 123/66 96 03/13/23 11:45 36.2 C L 83 17 115/66 116/42 L 90 03/13/23 08:33 36.6 C 73 20 114/65 94 03/13/23 07:17 36.7 C 84 19 109/68 93 O2 Del Method O2 Flow Rate 03/13/23 15:27 Nasal Cannula 2 03/13/23 14:00 Nasal Cannula 2 03/13/23 13:25 Nasal Cannula 2 03/13/23 13:15 Nasal Cannula 2 03/13/23 13:05 Nasal Cannula 2 03/13/23 12:55 Nasal Cannula 2 03/13/23 12:45 Nasal Cannula 2 03/13/23 12:35 Nasal Cannula 2 03/13/23 12:25 Nasal Cannula 2 03/13/23 12:15 Nasal Cannula 2 03/13/23 12:05 Nasal Cannula 4 03/13/23 11:55 Nasal Cannula 4 03/13/23 11:45 Room Air 03/13/23 08:33 Room Air 03/13/23 07:17 Room Air Laboratory Results 03/13/23 03/13/23 03/13/23 Range/Units 16:34 14:00 12:54 WBC (4.8-10.8) K/ul RBC (4.70-6.10) M/uL Hgb 8.3 L (14.0-18.0) g/dl Hct 27.5 L (42.0-52.0) % MCV (80.0-100.0) fL MCH (25.0-34.0) pg MCHC (32.0-36.0) g/dL RDW Std Deviation (36.4-46.3) fL RDW Coeff of Billie (11.5-14.5) % Plt Count (130-400) K/uL MPV (9.4-12.4) fL Sodium (136-145) mmol/L Potassium (3.5-5.1) mmol/L Chloride (98-107) mmol/L Carbon Dioxide (21-32) mmol/L Anion Gap (3-11) BUN (6-23) mg/dl Creatinine (0.6-1.4) mg/dl Est Cr Clr Drug Dosing ml/min Est GFR ( Amer) ml/min Est GFR (Non-Af Amer) ml/min BUN/Creatinine Ratio (10-20) Glucose (70-99(Fasting)) mg/dl POC Glucose 267 H 178 H (70-99) mg/dl Calcium (8.6-10.3) mg/dl Blood Type Antibody Screen 03/13/23 03/13/23 03/13/23 Range/Units 11:46 06:20 06:20 WBC 8.90 (4.8-10.8) K/ul RBC 3.60 L (4.70-6.10) M/uL Hgb 8.6 L (14.0-18.0) g/dl Hct 28.7 L (42.0-52.0) % MCV 79.7 L (80.0-100.0) fL MCH 23.9 L (25.0-34.0) pg MCHC 30.0 L (32.0-36.0) g/dL RDW Std Deviation 50.4 H (36.4-46.3) fL RDW Coeff of Billie 17.4 H (11.5-14.5) % Plt Count 223 (130-400) K/uL MPV 10.1 (9.4-12.4) fL Sodium 136 (136-145) mmol/L Potassium 3.6 (3.5-5.1) mmol/L Chloride 106 (98-107) mmol/L Carbon Dioxide 23 (21-32) mmol/L Anion Gap 7 (3-11) BUN 21 (6-23) mg/dl Creatinine 1.26 (0.6-1.4) mg/dl Est Cr Clr Drug Dosing 45.7 ml/min Est GFR ( Amer) 59.9 ml/min Est GFR (Non-Af Amer) 51.7 ml/min BUN/Creatinine Ratio 16.7 (10-20) Glucose 109 H (70-99(Fasting)) mg/dl POC Glucose 142 H (70-99) mg/dl Calcium 8.0 L (8.6-10.3) mg/dl Blood Type Antibody Screen 03/13/23 03/13/23 03/12/23 Range/Units 05:57 00:11 21:20 WBC (4.8-10.8) K/ul RBC (4.70-6.10) M/uL Hgb (14.0-18.0) g/dl Hct (42.0-52.0) % MCV (80.0-100.0) fL MCH (25.0-34.0) pg MCHC (32.0-36.0) g/dL RDW Std Deviation (36.4-46.3) fL RDW Coeff of Billie (11.5-14.5) % Plt Count (130-400) K/uL MPV (9.4-12.4) fL Sodium (136-145) mmol/L Potassium (3.5-5.1) mmol/L Chloride (98-107) mmol/L Carbon Dioxide (21-32) mmol/L Anion Gap (3-11) BUN (6-23) mg/dl Creatinine (0.6-1.4) mg/dl Est Cr Clr Drug Dosing ml/min Est GFR ( Amer) ml/min Est GFR (Non-Af Amer) ml/min BUN/Creatinine Ratio (10-20) Glucose (70-99(Fasting)) mg/dl POC Glucose 123 H 99 (70-99) mg/dl Calcium (8.6-10.3) mg/dl Blood Type O Positive Antibody Screen NEGATIVE 03/12/23 Range/Units 20:17 WBC (4.8-10.8) K/ul RBC (4.70-6.10) M/uL Hgb (14.0-18.0) g/dl Hct (42.0-52.0) % MCV (80.0-100.0) fL MCH (25.0-34.0) pg MCHC (32.0-36.0) g/dL RDW Std Deviation (36.4-46.3) fL RDW Coeff of Billie (11.5-14.5) % Plt Count (130-400) K/uL MPV (9.4-12.4) fL Sodium (136-145) mmol/L Potassium (3.5-5.1) mmol/L Chloride (98-107) mmol/L Carbon Dioxide (21-32) mmol/L Anion Gap (3-11) BUN (6-23) mg/dl Creatinine (0.6-1.4) mg/dl Est Cr Clr Drug Dosing ml/min Est GFR ( Amer) ml/min Est GFR (Non-Af Amer) ml/min BUN/Creatinine Ratio (10-20) Glucose (70-99(Fasting)) mg/dl POC Glucose 73 (70-99) mg/dl Calcium (8.6-10.3) mg/dl Blood Type Antibody Screen
[2023-03-13] MEDS: LANTUS PER UNIT CHARGE SC SCH (20:18)
--- NOTE | 2023-03-13 22:44 | CT Scan Report ---
Exam(s): CT LEFT KNEE Without Contrast EXAM: CT Left Lower Extremity Without Intravenous Contrast, Knee CLINICAL HISTORY: Reason for exam: left knee pain; s/p fall; hemarthrosis. TECHNIQUE: Axial computed tomography images of the left knee without intravenous contrast. Automated exposure control was utilized for the study. A dose lowering technique was utilized adhering to the principles of ALARA. COMPARISON: No relevant prior studies available. FINDINGS: Bones/joints: PCL footprint avulsion fracture, with the fracture fragment measuring approximately 1.5 x 1.1 cm and is by approximately 4 mm. Diffuse osseous demineralization. Moderate knee joint effusion. Intramedullary nail in the distal femur, with one interlocking screw. No dislocation. Soft tissues: Unremarkable. IMPRESSION: 1. PCL footprint avulsion fracture, with the fracture fragment measuring approximately 1.5 x 1.1 cm and is by approximately 4 mm. 2. Moderate knee joint effusion. Electronically signed by: Garth Muñoz MD 03/13/23 22:43 PM
[2023-03-14] MEDS: cefTRIAXone SODIUM 2,000 MG in DEXTROSE 5% 50 ML IV SCH (01:10)
[2023-03-14] MEDS: ceFAZolin 2000MG 2,000 MG/15 ML SYR IV SCH (01:10)
[2023-03-14] MEDS: ACETAMINOPHEN 325 MG TAB PO SCH ×5 (05:24→20:17)
[2023-03-14] MEDS: VANCOMYCIN HCL 1,250 MG in SODIUM CHLORIDE 0.9% 250 ML IV SCH (05:24)
[2023-03-14 06:46] LABS: Basophils # (auto) 0.02 K/uL (0-0.2); Basophils % (auto) 0.2 %; Eosinophils # (auto) 0.08 K/uL (0-0.50); Eosinophils % (auto) 0.9 %; Hematocrit (blood only) 26.9 % (42.0-52.0); Hemoglobin 8.1 g/dl (14.0-18.0); Immature Granulocytes # (auto) 0.17 K/uL (0.01-0.20); Immature Granulocytes % (auto) 1.8 %; Lymphocytes # (auto) 0.92 K/uL (1.2-3.4); Lymphocytes % (auto) 9.8 %; Mean Corpuscular Hgb Conc 30.1 g/dL (32.0-36.0); Mean Corpuscular Volume 79.6 fL (80.0-100.0); Mean Platelet Volume 10.2 fL (9.4-12.4); Monocytes # (auto) 0.79 K/uL (0.11-0.59); Monocytes % (auto) 8.4 %; Neutrophils % (auto) 78.9 %; Platelet Count 253 K/uL (130-400); RDW Coefficient of Variation 17.4 % (11.5-14.5); RDW Standard Deviation 50.6 fL (36.4-46.3); Red Blood Count 3.38 M/uL (4.70-6.10); White Blood Count 9.38 K/ul (4.8-10.8)
[2023-03-14 07:03] LABS: Creatinine Clr Calc Pharmacy 41.4 ml/min; Est GFR (African American) 53.2 ml/min; Est GFR (Non-African American) 45.9 ml/min; Potassium 4.2 mmol/L (3.5-5.1)
[2023-03-14] MEDS: INSULIN ASPART PER UNIT CHARGE SC SCH ×4 (08:39→20:23)
[2023-03-14] MEDS: LANTUS PER UNIT CHARGE SC SCH ×2 (08:39→20:23)
[2023-03-14] MEDS: RIVAROXABAN 15 MG TAB PO SCH (08:40)
[2023-03-14] MEDS: PANTOprazole 40 MG TAB PO SCH (08:41)
[2023-03-14] MEDS: METOPROLOL SUCC 50MG EXT REL TAB PO SCH (08:41)
[2023-03-14] MEDS: FINASTERIDE 5 MG TAB PO SCH (08:41)
--- NOTE | 2023-03-14 09:00 | Orthopedic Progress Note ---
Date of Service March 14, 2023 Assessment & Plan (1) S/P ORIF (open reduction internal fixation) fracture: Plan: The patient was educated regarding today's findings. Conservative care measures were discussed. His dressings were left in place. They will likely be changed tomorrow. Continue with his compression stockings and SCDs. He was encouraged to perform range of motion exercises while in bed. He may also sit at the side of the bed and dangle his legs for meals. Physical therapy may need to be altered given his acute PCL fracture. I will discuss his weightbearing status and therapy modifications with Dr. Leiva after the OR today. Continue with ice and oral pain medication as needed for swelling/pain control. Physical therapy team is aware of his PCL tear and temporary hold on therapy. The patient is adamant that he does not want to go to a rehab facility. He states he had a very bad experience at [facility] in [place]. He would like to go home with home health, and transition to outpatient PT when able. While I do not think he is ready for discharge at this time, he does have 1 floor living and home health would be a viable option. Admission and Anticipated Discharge Date Admission Date: March 11, 2023 Subjective This 87-year-old male is seen today in his room. He is currently on contact cautions because his urine grew MRSA. He states he is doing fine. He would like to go home today. He has not been out of bed yet. Overall he states he is feeling pretty good. He has very little hip or knee pain as long as he does not move. Both his hip and knee increase significantly with movement of the left leg. No additional complaints. Physical Exam Physical Exam: General: Well-developed, well-nourished, elderly male, in no acute distress. Laying in bed. Alert and oriented. Skin: Warm and dry with good turgor. No rashes. No visible ecchymosis. He still has a mild left knee effusion. Postsurgical dressings are in place on the lateral left leg. They are dry. Musculoskeletal: The patient has discomfort with palpation about his left knee. He has both hip and knee pain with passive logrolling as well as flexion of the hip and knee. Intact motor function the ankle without issue. No current pain with palpation over the midshaft tibia or fibula. Neurologic: Gross sensation is intact across the left leg by soft touch. Peripheral pulses are 2+. Results & Data Vital Signs (Past 12 Hours) Vital Signs Temp Pulse Pulse Resp BP Pulse Ox O2 Del Method 03/14/23 08:19 74 03/14/23 08:00 36.8 C 87 18 119/59 L 96 Room Air 03/14/23 03:42 36.9 C 74 18 107/60 91 Room Air 03/13/23 23:59 75 03/13/23 23:18 36.9 C 70 18 97/59 L 92 Room Air Laboratory Results CBC obtained this morning shows a white count of 9.38. Hemoglobin 8.1 and hematocrit 26.9. These have dropped slightly from yesterday. Platelets normal at 235,000. PRP obtained this morning shows sodium 135, potassium 4.2, chloride 105, bicarb 24, BUN of 25, with creatinine 1.39. Blood sugar is elevated today at 220. Diagnostic Findings CT scan imaging of the left knee done last night was reviewed. The patient has a PCL footprint avulsion fracture of 1.5 x 1.1 cm. No additional fracture is identified. There is a moderate knee effusion.
--- NOTE | 2023-03-14 09:32 | Hospitalist Progress Note ---
Date of Service March 14, 2023 Assessment & Plan (1) Hip fracture, left: (2) Complicated UTI (urinary tract infection): (3) DKA (diabetic ketoacidosis): (4) Kidney stone on right side: (5) Atrial fibrillation: (6) Elevated troponin: (7) Elevated serum creatinine: (8) History of Whipple procedure: (9) BPH (benign prostatic hyperplasia): (10) Fall from standing: (11) Acute pain of left knee: Nic Ingram is an 87 y/o M with a past medical history of type 2 diabetes on m etformin, atrial fibrillation on Xarelto, previous complicated UTIs, history of Whipple procedure, and chronic pancreatitis who presents to the hospital after experiencing a fall. He was in diabetic ketoacidosis likely secondary to urinary tract infection associated with a right kidney stone and found to have a left intertrochanteric hip fracture. #Complicated UTI -Initial urine culture grew MRSA, repeat culture from [facility] growing gram positive cocci -Continue Rocephin, vancomycin -Given that he has a ureteral stent (due to 12mm kidney stone) and significant UTI history, will consult infectious disease -Blood cultures negative #Intertrochanteric hip fracture, left -Surgical intervention 03/13/23: closed reduction, insertion of a long troc hanteric femoral nail -Scheduled Tylenol, PRN morphine -Resumed Xarelto for AFIB on 03/14/23 -PT/OT #Acute pain of left knee -L knee CT on 03/13 showed PCL footprint avulsion fracture. ~75mL of blood was aspirated from left knee on 03/13 during surgery -Per ortho, non-weight bearing for now. -PT ordered by ortho -Analgesia as above #Kidney stone, right side -S/p cystoscopy, right retrograde pyelogram, right ureteral stent placement on 03/11/23 -Per urology, planning for stone treatment in 1-2 weeks -Continue IVF, Zhang catheter, analgesia as above #Diabetic ketoacidosis, resolved -HgbA1C: 11.4%. Home dose of metformin 1g PO BID -Lantus 10u daily -Blood glucose, electrolytes within range. Tolerating diet by mouth #Atrial fibrillation -Tele shows paroxysms of AFIB with some PACs/PVCs -Continue Xarelto and metoprolol succinate #Elevated serum creatinine -Creatinine improving. Suspect CKD due to uncontrolled diabetes. -Renally dose medications #Benign prostatic hyperplasia -Finasteride FENGI: carb consistent/DM2. Disposition: Telemetry DVT prophylaxis: Xarelto Code Status: Full code Admission and Anticipated Discharge Date Admission Date: March 11, 2023 Supervising Physician Co-Signing Physician Notes ATTESTATION I also saw the patient and confirmed dangelo portions of the history and exam. I agree with the impression and plan in the medical student documentation, and as summarized below. Patient is without significant plaints today. Some left lower extremity pain, this seems to be positional. We talked a bit more today about his previous history of infections, and it sounds as if he has had MRSA infections previously (and possibly in urine). All of this was when he was living in [place], unfortunately no records available for review as of yet. EXAM 122/61, 74, 18, 36.8, 96% room air Pleasant. Alert. Heart regular Respirations nonlabored DATA Labs White blood cell count 9.38, hemoglobin 8.1, platelet count 253 Sodium 135, potassium 4.2, BUN 25, creatinine 1.39 Vitamin D 12.2 Micro Urine culture dated 03/12/2023 shows gram-positive cocci (preliminary). Blood cultures dated 03/10/2023 shows no growth at 48 hours Urine culture dated 03/10/2023, clean-catch, demonstrates Staph aureus MRSA Imaging CT scan of the left knee completed today shows a PCL footprint avulsion fracture, with a fracture fragment measuring approximately 1.5 x 1.1 cm and is by approximately 4 mm. There is a moderate joint effusion. 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 7 days, first dose today Additional per student /Resident documentation Subjective Juan Jose is feeling stable after surgery and has no acute concerns. In fact he is wondering if he can go home today. He is eager to start physical therapy after his hip surgery. He would much rather avoid rehab and strongly prefers to go home with home health. His pain is tolerable with his current pain regimen. He occasionally feels palpitations, no chest pain, no SOB, using incentive spirometry. No calf pain. No dysuria with the Zhang catheter. Tolerating his diet by mouth without concerns. Review of Systems Review of Systems: All systems reviewed & are unremarkable except as noted in HPI & below Physical Exam Physical Exam: Appearance: lying supine in bed, NAD Respiratory: Normal respiratory effort Breathing room air No conversational dyspnea Lungs clear to auscultation without crackles or wheeze Cardiovascular: Regular rate, rhythm Normal S1, S2, without appreciable murmurs Extremities well perfused without edema No cyanosis Gastrointestinal (Abdomen): Active bowel sounds without pain/rebound/guarding to palpation Musculoskeletal: Wound dressings on left hip and left knee are dry without surrounding erythema or purulence Left hip log roll elicits pain Passive/active flexion left knee limited due to pain Palpation to posterior knee elicits pain Dorsalis pedis pulses intact bilaterally Neurologic: Alert, answering questions appropriately Results & Data Results & Data Vital Signs (Past 12 Hours) Vital Signs Temp Pulse Pulse Resp BP Pulse Ox O2 Del Method 03/14/23 08:19 74 03/14/23 08:00 36.8 C 87 18 119/59 L 96 Room Air 03/14/23 03:42 36.9 C 74 18 107/60 91 Room Air 03/13/23 23:59 75 03/13/23 23:18 36.9 C 70 18 97/59 L 92 Room Air (3) DKA (diabetic ketoacidosis) Diabetes mellitus complication detail: without coma Diabetes mellitus type: type 2 Qualified Code(s): E11.10 - Type 2 diabetes mellitus with ketoacidosis without coma
--- NOTE | 2023-03-14 11:43 | Pharmacy Report ---
Pharmacy Glycemic Short Note 2 - Date of Service March 14, 2023 - Glycemic Short BSG Results (Last 24 hours): 03/13/23 03/13/23 03/13/23 11:46 14:00 16:34 Glucose POC Glucose 142 H 178 H 267 H 03/13/23 03/14/23 03/14/23 20:01 05:57 07:29 Glucose 217 H POC Glucose 269 H 220 H 03/14/23 03/14/23 11:28 11:32 Glucose POC Glucose 219 H 224 H OUTPATIENT ANTIDIABETIC REGIMEN: * metformin 1 g PO BIDM HbA1c: 11.4% (03/11/23) ASSESSMENT: 03/14/23: * POD1, received Dexamethasone 4mg IV in OR yesterday, resulting in blood sugars in the 200s, tighten CF/CR to cover steroid effects, then loosen as they wear off. * Resume AM Lantus (held yesterday for NPO). 03/13/23: * Blood sugars well controlled yesterday on 10 units basal, 17 units bolus insulin. * NPO today for orthopedic surgery with Dr Leiva - hold AM basal, PRN HS tonight and resume AM basal tomorrow morning 03/12/23: * BSGs labile yesterday following transition to SC from insulin gtt * Given multiple BSGs below 100 mg/dL yesterday and fasting, will loosen Novolog and decrease basal today * Patient will be NPO after midnight for surgery tomorrow * POD #1 s/p cystoscopy, now on vancomycin for MRSA UTI 03/11/23: * 87 year old male admitted s/p fall. Also presenting with DKA, concerns for UTI/kidney stone. Type 2 diabetic only on metformin at home. A1c pending. Labs normalizing this AM, therefore was transitioned off insulin drip with Lantus 20 units, continues on novolog SSI only * Patient remains NPO this AM in case of procedure. Plan to continue novolog for today PLAN FOR INPATIENT GLYCEMIC CONTROL: * Hold outpatient oral diabetes medications * Basal insulin * Lantus 10 units SQ Daily * Lantus 0-5 units SC HS (5 units for BSG > 140) * Bolus insulin * NovoLog per scale ACHS or Q6hrs while NPO * Goal Range: Low 110 mg/dL - High 140 mg/dL * Correction Factor: 12 mg/dL/unit * Nutritional / Prandial insulin per carb ratio of 1 unit per 4 grams CHO consumed
[2023-03-14] MEDS: oxyCODONE HCL IR 5 MG TAB (IMMEDIATE RELEASE) PO PRN ×2 (15:04→20:22)
--- NOTE | 2023-03-14 15:28 | Infectious Disease Consult ---
Date of Consultation March 14, 2023 Assessment & Plan (1) Complicated UTI (urinary tract infection): (2) Right ureteral stone: Plan Micro: 03/12 UCx: 8K GPCs (no sensitivites to follow) 03/10 UCx: >100K MRSA (S nitrofurantoin, tetra, TMP/SMX) 03/10 BCx x2: NGTD Abx: Vanc 03/12 - present Ceftriaxone 03/11 - present Cefazolin 03/13 - 03/14 Problems: #MRSA complicated UTI #R ureteral stone s/p ureteral stent 03/11 87 yo M with history of afib on Xarelto, DM2, prior complicated UTIs, prior MRSA infections, history of Whipple procedure, chronic pancreatitis who presented on 03/10 after a fall, found to have DKA, L intertrochanteric hip fracture, and 12 mm R ureteral calculus s/p R ureteral stent 03/11 with UCx growing MRSA. Pt was out to dinner that evening and was getting out of the car and turned to walk on the sidewalk, and he fell--pt unsure if he tripped or collapsed. On present ation, he was afebrile with WBC 14.58, Cr 1.62, glucose 649. UA >[address] head/C spine, CXR showed no acute findings. CT A/P without contrast showed a 1.2 x 0.6 cm distal R ureteral calculus, without hydronephrosis. CT hip showed a minimally displaced L intertrochanteric hip fracture. A carpenter was placed in the ED. He was started on ceftriaxone due to concern for UTI. Urology placed R ureteral stent on 03/11. Plan is for outpatient urology follow-up in 1-2 weeks for stone treatment. Pt's urine culture grew >100K MRSA, so vancomycin was added on 03/12. On 03/13, ortho performed closed reduction and insertion of long trochanteric femoral nail L femur. WBC and Cr have downtrended. A repeat UCx on 03/12 grew 8K GPCs. Per notes, pt reports prior MRSA infections and possibly in the urine when he was living in [place], but no records available for review. Recommendations: -Appreciate efforts to obtain outside records -Can continue vancomycin for complicated UTI, and on discharge would transition to TMP/SMX 2 DS tabs PO q12h (CrCl ~30-49) to complete a 10 day course (03/12 - 03/21) -Stone removal and ureteral stent removal as possible to help reduce recurrence of MRSA UTI Will sign off. Please page [facility] with further questions. Consultation Information This patient recommendation is based on a telemedicine consult request which was completed asynchronously through chart review and information provided by the primary physician. The patient was not seen or examined today. The evaluation is consultative in nature and all patient care and treatment decisions can either be accepted or rejected by the patient's primary hospital-based treating physician using their own independent medical judgment for their patient. Engineering Group Manager contact information: Please call [facility] [phone]. (Phone Number For Physician Use Only) Time Spent Reviewing Chart: 31+ minutes History of Present Illness Reason for Consultation: MRSA UTI Requesting Physician: Dr. Mclean Attending Physician: Mathieu Mclean DO History of Present Illness 87 yo M with history of afib on Xarelto, DM2, prior complicated UTIs, prior MRSA infections, history of Whipple procedure, chronic pancreatitis who presented on 03/10 after a fall. Per notes, the pt was out to dinner that evening and was getting out of the car and turned to walk on the sidewalk, and he fell. On presentation, he was afebrile, hypertensive. Labs showed WBC 14.58, Cr 1.62, glucose 649. UA >[address] head and C spine showed no acute findings. CXR showed no acute findings. CT A/P without contrast showed a 1.2 x 0.6 cm distal R ureteral calculus, without hydronephrosis. CT hip showed a minimally displaced L intertrochanteric hip fracture. Due to elevated sugar and mild acidemia, pt was started on DKA protocol. A Carpenter was placed. He was also started on ceftriaxone due to concern for UTI. Urology was consulted and took him to the OR on 03/11 for R ureteral stent placement. Plan is for outpatient urology follow-up in 1-2 weeks for stone treatment. Pt's urine culture grew >100K MRSA, so vancomycin was added on 03/12. On 03/13, ortho performed closed reduction and insertion of long trochanteric femoral nail L femur. WBC and Cr have downtrended. A repeat UCx on 03/12 grew 8K GPCs. Per notes, pt reports prior MRSA infections and possibly in the urine when he was living in [place], but no records available for review. Allergies Allergy/AdvReac Type Severity Reaction Status Date / Time heparin AdvReac Thrombocyto Verified 03/11/23 02:28 penia Home Medications Medication Instructions Recorded Confirmed Type ascorbic acid (vitamin C) 500 mg 0 mg PO DAILY 03/11/23 03/11/23 History tablet (Vitamin C) cholecalciferol (vitamin D3) 25 0 mcg PO DAILY 03/11/23 03/11/23 History mcg (1,000 unit) tablet (Vitamin D3) finasteride 5 mg tablet 5 mg PO DAILY 03/11/23 03/11/23 History inulin 2 gram chewable tablet 0 g PO DAILY 03/11/23 03/11/23 History (Prebiotic Fiber) lactobacillus combination no.4 3 0 mmu cells PO DAILY 03/11/23 03/11/23 History billion cell capsule (Probiotic) metformin 500 mg tablet 1,000 mg PO BID 03/11/23 03/11/23 History metoprolol succinate 50 mg 50 mg PO DAILY 03/11/23 03/11/23 History tablet,extended release 24 hr multivitamin 1 tab PO DAILY 03/11/23 03/11/23 History pantoprazole 40 mg tablet,delayed 40 mg PO DAILY 03/11/23 03/11/23 History release rivaroxaban 15 mg tablet (Xarelto) 15 mg PO DAILY 03/11/23 03/11/23 History Patient History Medical History Atrial fibrillation BPH (benign prostatic hyperplasia) Complicated UTI (urinary tract infection) DKA (diabetic ketoacidosis) Hip fracture, left Kidney stone on right side Surgical History History of Whipple procedure Social History (Updated 03/11/23 @ 11:28 by Chidi Lopez PA-C) Smoking Status: Never smoker Second Hand Exposure: No; Do You Dip or Chew Tobacco: No; Hx Alcohol Use: Yes Alcohol type: wine Hx Substance Use: No Preferred Language: Armenian Communication Ability: Effective Communication Tools: Other Supply Chain Business Analyst Required: Yes Beliefs That Will Affect Care: None marital status: / Current Living Situation: Family Feels Safe at Home: Yes Assistive Devices: Glasses Review of System Pt was not seen Physical Exam Physical Exam: Pt was not seen Results & Data Vital Signs (Past 12 Hours) Vital Signs Temp Pulse Pulse Resp BP Pulse Ox O2 Del Method 03/14/23 15:11 74 03/14/23 11:37 36.8 C 81 18 122/61 96 Room Air 03/14/23 08:19 74 03/14/23 08:00 36.8 C 87 18 119/59 L 96 Room Air 03/14/23 03:42 36.9 C 74 18 107/60 91 Room Air Laboratory Results Short CBC 03/14/23 Range/Units 05:57 WBC 9.38 (4.8-10.8) K/ul Hgb 8.1 L (14.0-18.0) g/dl Hct 26.9 L (42.0-52.0) % Plt Count 253 (130-400) K/uL BMP 03/14/23 05:57 Sodium 135 L Potassium 4.2 Chloride 105 Carbon Dioxide 24 BUN 25 H Creatinine 1.39 Glucose 217 H Calcium 8.0 L Diagnostic Findings Knee X-Ray 03/11/23 18:44 XR knee LT 1 or 2V routine HISTORY: 87 years-old Male pain, AP and LAT acute left knee pain without reported trauma COMPARISON: None TECHNIQUE: 2 views of the left knee FINDINGS: Moderate size joint effusion. Demineralized appearance of the bones with minimal tricompartmental osteoarthritis. Mild circumferential soft tissue prominence. No acute fracture, dislocation or osseous erosion. IMPRESSION: 1. Soft tissue swelling without acute fracture or dislocation. 2. Moderate-sized joint effusion. ACT 112: Negative or not required by law. The above report was generated using voice recognition software. It may contain grammatical, syntax or spelling errors. Electronically signed by: Jaleel Healy M.D. 03/12/2023 7:53 AM Hip X-Ray 03/13/23 09:00 FL hip LT 2-3V CLINICAL HISTORY: LEFT TROCHANTERIC NAIL HIP COMPARISON STUDY: Left hip radiographs March 10, 2023. CT of the left hip March 11, 2023. FLUOROSCOPY TIME: 125.9 seconds. Ka, r: 29.60 mGy FLUOROSCOPIC IMAGES: 4 FINDINGS: Fluoroscopy was provided during open reduction and internal fixation of the left femoral fracture involving the neck and intertrochanteric portion of the left femur with trochanteric nail. Fracture alignment appears near anatomic. Hardware is intact. There are no unexpected radiopaque foreign bodies. IMPRESSION: Fluoroscopy provided during open reduction and internal fixation of the proximal left femoral fracture with trochanteric nail. ACT 112: Negative or not required by law. Electronically signed by: Fidel Suggs M.D. 03/13/2023 11:[address] 03/13/23 13:49 Exam(s): CT LEFT KNEE Without Contrast EXAM: CT Left Lower Extremity Without Intravenous Contrast, Knee CLINICAL HISTORY: Reason for exam: left knee pain; s/p fall; hemarthrosis. TECHNIQUE: Axial computed tomography images of the left knee without intravenous contrast. Automated exposure control was utilized for the study. A dose lowering technique was utilized adhering to the principles of ALARA. COMPARISON: No relevant prior studies available. FINDINGS: Bones/joints: PCL footprint avulsion fracture, with the fracture fragment measuring approximately 1.5 x 1.1 cm and is by approximately 4 mm. Diffuse osseous demineralization. Moderate knee joint effusion. Intramedullary nail in the distal femur, with one interlocking screw. No dislocation. Soft tissues: Unremarkable. IMPRESSION: 1. PCL footprint avulsion fracture, with the fracture fragment measuring approximately 1.5 x 1.1 cm and is by approximately 4 mm. 2. Moderate knee joint effusion. Electronically signed by: Garth Muñoz MD 03/13/23 22:43 PM Medications Administered Current Inpatient Medications Acetaminophen (Acetaminophen 325 Mg Tab) 650 mg PO 0500,0900,1300,1700,2100 [facility] Stop: 04/11/23 12:59 Last Admin: 03/14/23 12:47 Dose: 650 mg Dextrose (Dextrose 50% 50 Ml Syringe) 25 - 50 ml IV UD PRN; Protocol PRN Reason: Hypoglycemia Protocol Stop: 04/10/23 03:59 Finasteride (Finasteride 5 Mg Tab) 5 mg PO DAILY [facility]ILIPP Stop: 04/10/23 08:59 Last Admin: 03/14/23 08:41 Dose: 5 mg Glucagon (Glucagon For Inj 1 Mg Vial) 1 mg IM UD PRN; Protocol PRN Reason: Hypoglycemia Protocol Stop: 04/10/23 03:59 Glucose (Glucose 40% Gel 15 Gm Tube) 15 - 30 gm PO UD PRN; Protocol PRN Reason: Hypoglycemia Protocol Stop: 04/10/23 03:59 Glucose (Glucose 10 Tab/Tube) 4 - 8 tab PO UD PRN; Protocol PRN Reason: Hypoglycemia Protocol Stop: 04/10/23 03:59 Ceftriaxone Sodium 2,000 mg/ (Dextrose) 70 mls @ 100 mls/hr IV Q24H [facility]; Protocol Stop: 03/22/23 00:00 Last Infusion: 03/14/23 02:28 Dose: Infused Vancomycin HCl 1,250 mg/ (Sodium Chloride) 275 mls @ 200 mls/hr IV Q24H [facility] Stop: 03/23/23 05:59 Last Infusion: 03/14/23 07:41 Dose: Infused Insulin Aspart (Insulin Aspart Per Unit Charge) 0 units SC ACHS [facility]; Protocol Stop: 04/12/23 16:29 Last Admin: 03/14/23 11:43 Dose: 17 units Insulin Glargine (Lantus Per Unit Charge) 0 units SC [facility]; Protocol Stop: 04/12/23 20:59 Last Admin: 03/13/23 20:18 Dose: 5 units Insulin Glargine (Lantus Per Unit Charge) 10 units SC DAILY [facility] Stop: 04/13/23 08:59 Last Admin: 03/14/23 08:39 Dose: 10 units Metoprolol Succinate (Metoprolol Succ 50mg Ext Rel Tab) 50 mg PO DAILY [facility] Stop: 04/10/23 08:59 Last Admin: 03/14/23 08:41 Dose: 50 mg Miscellaneous (Carbohydrates For Hypoglycemia ) 15 - 30 gm PO UD PRN PRN Reason: Hypoglycemia Treatment Stop: 04/10/23 03:59 Miscellaneous Information (Pharmacy Glycemic Mgmt Consult) 1 each N/A UD PRN PRN Reason: Consult Stop: 04/09/23 23:38 Miscellaneous Information (Vancomycin Consult Active) 1 each N/A UD PRN PRN Reason: Consult Stop: 04/11/23 11:32 Morphine Sulfate (Morphine Sulfate 2 Mg/Ml Carp) 2 mg IV Q4H PRN PRN Reason: Moderate Pain (Scale 4, 5, 6) Stop: 03/25/23 03:30 Morphine Sulfate (Morphine Sulfate 4 Mg/Ml 1 Ml Carp\Vial) 4 mg IV Q4H PRN PRN Reason: Severe Pain (Scale 7, 8, 9,10) Stop: 03/25/23 03:30 Last Admin: 03/11/23 23:02 Dose: 4 mg Ondansetron HCl (Ondansetron Inj 2 Mg/Ml 2 Ml Vial) 4 mg IV Q6H PRN PRN Reason: Nausea Stop: 04/10/23 03:47 Oxycodone HCl (Oxycodone Hcl Ir 5 Mg Tab (Immediate Release)) 5 - 10 mg PO Q4H PRN PRN Reason: Pain or Pre PT Stop: 03/27/23 13:48 Last Admin: 03/14/23 15:04 Dose: 5 mg Pantoprazole Sodium (Pantoprazole 40 Mg Tab) 40 mg PO DAILY [facility]ILIP[facility] Stop: 04/10/23 08:59 Last Admin: 03/14/23 08:41 Dose: 40 mg Polyethylene Glycol (Polyethylene (Miralax) 17 Gm Pack) 17 gm PO DAILY PRN PRN Reason: Constipation Stop: 04/10/23 03:47 Rivaroxaban (Rivaroxaban 15 Mg Tab) 15 mg PO DAILY PHILIPP Stop: 04/13/23 08:59 Last Admin: 03/14/23 08:40 Dose: 15 mg Tramadol HCl (Tramadol Hcl 50 Mg Tablet) 50 - 100 mg PO Q4H PRN PRN Reason: Pain & Pre PT Stop: 04/12/23 13:48
[2023-03-14] MEDS ORDERED: CHOLECALCIFEROL 5,000 UNITS 125 MCG TAB PO SCH (17:00)
[2023-03-14] MEDS: traMADol HCL 50 MG TABLET PO PRN (23:16)
[2023-03-15] MEDS ORDERED: VANCOMYCIN LEVEL ONE (05:30)
[2023-03-15] MEDS: ACETAMINOPHEN 325 MG TAB PO SCH ×5 (05:38→19:25)
[2023-03-15 05:58] LABS: Basophils # (auto) 0.04 K/uL (0-0.2); Basophils % (auto) 0.5 %; Eosinophils # (auto) 0.22 K/uL (0-0.50); Hematocrit (blood only) 25.7 % (42.0-52.0); Hemoglobin 7.8 g/dl (14.0-18.0); Immature Granulocytes # (auto) 0.16 K/uL (0.01-0.20); Immature Granulocytes % (auto) 2.2 %; Lymphocytes # (auto) 1.21 K/uL (1.2-3.4); Lymphocytes % (auto) 16.5 %; Mean Corpuscular Hemoglobin 24.5 pg (25.0-34.0); Mean Corpuscular Hgb Conc 30.4 g/dL (32.0-36.0); Mean Corpuscular Volume 80.6 fL (80.0-100.0); Mean Platelet Volume 9.8 fL (9.4-12.4); Monocytes # (auto) 0.74 K/uL (0.11-0.59); Monocytes % (auto) 10.1 %; Neutrophils # (auto) 4.97 K/uL (1.40-6.50); Neutrophils % (auto) 67.7 %; Platelet Count 267 K/uL (130-400); RDW Coefficient of Variation 17.6 % (11.5-14.5); RDW Standard Deviation 51.4 fL (36.4-46.3); Red Blood Count 3.19 M/uL (4.70-6.10); White Blood Count 7.34 K/ul (4.8-10.8)
[2023-03-15 06:07] LABS: Albumin Globulin Ratio 1.2 (0.9-2); BUN Creatinine Ratio 17.1 (10-20); Bilirubin,Total 0.4 mg/dl (0.2-1.0); Creatinine Clr Calc Pharmacy 37.8 ml/min; Est GFR (African American) 47.7 ml/min; Est GFR (Non-African American) 41.2 ml/min; Globulin 2.6 gm/dl (2.5-4.0); Potassium 4.2 mmol/L (3.5-5.1); Total Protein 5.6 gm/dl (6.0-8.3)
[2023-03-15 06:24] LABS: Polychromasia 1+
[2023-03-15] MEDS: VANCOMYCIN HCL 1,250 MG in SODIUM CHLORIDE 0.9% 250 ML IV SCH (07:12)
--- NOTE | 2023-03-15 07:46 | Hospitalist Progress Note ---
Date of Service March 15, 2023 Assessment & Plan (1) Hip fracture, left: (2) Complicated UTI (urinary tract infection): (3) DKA (diabetic ketoacidosis): (4) Kidney stone on right side: (5) Atrial fibrillation: (6) Elevated troponin: (7) Elevated serum creatinine: (8) History of Whipple procedure: (9) BPH (benign prostatic hyperplasia): (10) Fall from standing: (11) Acute pain of left knee: Plan Juan Jose is an 87 y/o M with a past medical history of type 2 diabetes on m etformin, atrial fibrillation on Xarelto, previous complicated UTIs, history of Whipple procedure, and chronic pancreatitis who presents to the hospital after experiencing a fall. He was in diabetic ketoacidosis likely secondary to urinary tract infection associated with a right kidney stone and found to have a left intertrochanteric hip fracture. #Complicated UTI -ID consult appreciated given several prior UTIs: continue vancomycin. On discharge transition to TMP/SMX 2 DS tabs PO q12h (CrCl ~30-49) to complete a 10 day course (03/12 - 03/21) -Ureteral stent removal as able -Initial urine culture grew MRSA, repeat culture from [facility] growing gram positive cocci with no sensitivities to follow -Blood cultures negative #Intertrochanteric hip fracture, left -Surgical intervention 03/13/23: closed reduction, insertion of a long trochanteric femoral nail -Scheduled Tylenol, PRN morphine -Resumed Xarelto for AFIB on 03/14/23 -PT/OT both recommending inpatient rehab. Weight bearing as tolerated. -Vitamin D level was 12.2. 50,000 units PO weekly initiated #Acute pain of left knee -L knee CT on 03/13 showed PCL footprint avulsion fracture. ~75mL of blood was aspirated from left knee on 03/13 during surgery -[facility] ortho can weight-bear as tolerated. Can use knee immobilizer if painful or unstable. -Analgesia as above #Kidney stone, right side -S/p cystoscopy, right retrograde pyelogram, right ureteral stent placement on 03/11/23 -Urology planning for stone treatment 1-2 weeks after stent placement -Continue IVF, Zhang catheter, analgesia as above #Diabetic ketoacidosis, resolved -HgbA1C: 11.4%. Home dose of metformin 1g PO BID -Lantus 10u daily -Blood glucose, electrolytes within range. Tolerating diet by mouth #Atrial fibrillation -Tele shows paroxysms of AFIB with some PACs/PVCs -Continue Xarelto and metoprolol succinate #Elevated serum creatinine -Creatinine improving. Suspect CKD due to uncontrolled diabetes. -Renally dose medications #Benign prostatic hyperplasia -Finasteride FENGI: carb consistent/DM2. Disposition: Telemetry DVT prophylaxis: Xarelto Code Status: Full code Admission and Anticipated Discharge Date Admission Date: March 11, 2023 Supervising Physician Co-Signing Physician Notes Attending attestation Pt seen and examined in concert with Dr. Martines, St. Dr. Yeung. In agreement with the documented findings as noted in the resident documentation with any exceptions or additions as noted here. Pain is well controlled with present analgesia and motivated to work with PT/OT, looking forward to rehab. On examination, S1/S2 nl RRR no MCG. CTAB. 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 Subjective Juan Jose has no acute concerns. After sleeping fairly well his hip/knee pain has improved. Yesterday he worked with PT and worked on standing which was painful. He understands that the current recommendation is for him to go to [facility] after discharge, although he prefers home health. He occasionally feels palpitations. No fevers, chills, dysuria with the Zhang, chest pain, calf pain. Passing bowel movements without concern. Review of Systems Review of Systems: All systems reviewed & are unremarkable except as noted in HPI & below Physical Exam Physical Exam: Appearance: lying supine in bed, NAD Respiratory: Room air No conversational dyspnea Lungs clear to auscultation No crackles or wheeze Cardiovascular: Regular rate and rhythm Normal S1, S2 Extremities warm Lower extremities without edema No cyanosis Gastrointestinal (Abdomen): Active bowel sounds, no pain/rebound/guarding to palpation Musculoskeletal: Log rolling painful Active left hip flexion painful, ROM limited Passive left knee flexion painful, ROM limited Skin: Surgical incisions are dry Dressings are clean, recently changed Neurologic: Alert, answering questions appropriately Lymphatic: Lower extremities appear symmetrical aside from surgical incisions/dressings. No edema or erythema, no calf pain. Results & Data Results & Data Vital Signs (Past 12 Hours) Vital Signs Temp Pulse Pulse Resp BP Pulse Ox O2 Del Method 03/15/23 07:32 74 03/15/23 03:39 36.5 C 80 18 118/61 96 Room Air 03/14/23 23:10 36.9 C 71 16 94/56 L 94 Room Air (3) DKA (diabetic ketoacidosis) Diabetes mellitus complication detail: without coma Diabetes mellitus type: type 2 Qualified Code(s): E11.10 - Type 2 diabetes mellitus with ketoacidosis without coma
[2023-03-15] MEDS: LANTUS PER UNIT CHARGE SC SCH (08:22)
[2023-03-15] MEDS: INSULIN ASPART PER UNIT CHARGE SC SCH ×4 (08:22→21:40)
[2023-03-15] MEDS: FINASTERIDE 5 MG TAB PO SCH (08:23)
[2023-03-15] MEDS: RIVAROXABAN 15 MG TAB PO SCH (08:23)
[2023-03-15] MEDS: PANTOprazole 40 MG TAB PO SCH (08:23)
[2023-03-15] MEDS: METOPROLOL SUCC 50MG EXT REL TAB PO SCH (08:23)
--- NOTE | 2023-03-15 10:01 | Orthopedic Progress Note ---
Date of Service March 15, 2023 Assessment & Plan (1) S/P ORIF (open reduction internal fixation) fracture: Plan: Dressings were changed today Continue with his compression stockings and SCDs. He was encouraged to perform range of motion exercises while in bed. He may also sit at the side of the bed and dangle his legs for meals. Patient may be weightbearing as tolerated with walker assistance with the immobilizer in place on the left lower extremity Continue with ice and oral pain medication as needed for swelling/pain control. PT/OT Patient will most likely need to go to a rehab facility to work on gait training and strengthening of his left quadriceps musculature. Case management will meet with patient to discuss options. Patient will need to follow-up with Dr. Leiva in our office in about 2 weeks. Admission and Anticipated Discharge Date Admission Date: March 11, 2023 Subjective This 87-year-old male seen this morning 2 days status post left trochanteric nailing for hip fracture as well as aspiration of fluid from his left knee. Patient states he is doing very well. He denies chest pain, shortness of breath, fever, chills, sweats, nausea, vomiting, diarrhea or difficulty voiding. He states that he still has some pain in his left hip and has difficulty lifting off of the bed. He is yet to be up weightbearing with physical therapy. His immobilizer is in his room and he must wear this when he is ambulatory on the left lower extremity. Review of Systems Review of Systems: All systems reviewed & are unremarkable except as noted in Subjective Physical Exam Physical Exam: Left lower extremity: Outer dressings were removed and new dressings were applied to the incision sites consisting of Xeroform gauze, sterile 2 x 2's and Tegaderms. Patient has some mild edema and ecchymosis to the proximalmost incision site. He was able to form active straight leg raise test however quad strength is only about 3 out of 5. He is able to actively dorsi and plantarflex his foot. He experienced significant pain with knee flexion beyond 80 degrees. He tolerated hip flexion to about 80 degrees as well and experienced tensile pain with light passive internal and external rotation. Otherwise he is neurovascularly intact in the left lower extremity. Results & Data Vital Signs (Past 12 Hours) Vital Signs Temp Pulse Pulse Resp BP Pulse Ox O2 Del Method 03/15/23 08:11 36.5 C 80 17 118/61 93 Room Air 03/15/23 07:32 74 03/15/23 03:39 36.5 C 80 18 118/61 96 Room Air 03/14/23 23:10 36.9 C 71 16 94/56 L 94 Room Air Diagnostic Findings Laboratory Results WBC 7.34 K/ul (4.8-10.8) 03/15/23 05:34 RBC 3.19 M/uL (4.70-6.10) L 03/15/23 05:34 Hgb 7.8 g/dl (14.0-18.0) L 03/15/23 05:34 POC Hgb 12.9 g/dl (14.0-18.0) L 03/10/23 23:00 Hct 25.7 % (42.0-52.0) L 03/15/23 05:34 POC Hct 38 % (42-52) L 03/10/23 23:00 MCV 80.6 fL (80.0-100.0) 03/15/23 05:34 MCH 24.5 pg (25.0-34.0) L 03/15/23 05:34 MCHC 30.4 g/dL (32.0-36.0) L 03/15/23 05:34 RDW Std Deviation 51.4 fL (36.4-46.3) H 03/15/23 05:34 RDW Coeff of Billie 17.6 % (11.5-14.5) H 03/15/23 05:34 Plt Count 267 K/uL (130-400) 03/15/23 05:34 MPV 9.8 fL (9.4-12.4) 03/15/23 05:34 Immature Gran % (Auto) 2.2 % 03/15/23 05:34 Neut % (Auto) 67.7 % 03/15/23 05:34 Lymph % (Auto) 16.5 % 03/15/23 05:34 Haines % (Auto) 10.1 % 03/15/23 05:34 Eos % (Auto) 3.0 % 03/15/23 05:34 Baso % (Auto) 0.5 % 03/15/23 05:34 Neut # (Auto) 4.97 K/uL (1.40-6.50) 03/15/23 05:34 Lymph # (Auto) 1.21 K/uL (1.2-3.4) 03/15/23 05:34 Haines # (Auto) 0.74 K/uL (0.11-0.59) H 03/15/23 05:34 Eos # (Auto) 0.22 K/uL (0-0.50) 03/15/23 05:34 Baso # (Auto) 0.04 K/uL (0-0.2) 03/15/23 05:34 Immature Gran # (Auto) 0.16 K/uL (0.01-0.20) 03/15/23 05:34 Polychromasia 1+ 03/15/23 05:34 PT 11.7 Seconds (9.0-12.0) 03/11/23 06:16 INR 1.1 (0.9-1.1) 03/11/23 06:16 VBG pH 7.37 (7.36-7.41) 03/12/23 06:20 POC Sodium 132 mmol/L (135-144) L 03/10/23 23:00 Sodium 136 mmol/L (136-145) 03/15/23 05:34 POC Potassium 5.1 mmol/L (3.3-5.0) H 03/10/23 23:00 Potassium 4.2 mmol/L (3.5-5.1) 03/15/23 05:34 POC Chloride 99 mmol/L (101-112) L 03/10/23 23:00 Chloride 106 mmol/L (98-107) 03/15/23 05:34 Carbon Dioxide 26 mmol/L (21-32) 03/15/23 05:34 POC Total CO2 18 mmol/L (24-31) L 03/10/23 23:00 Anion Gap 4 (3-11) 03/15/23 05:34 POC Anion Gap 20.0 mmol/L (16-25) 03/10/23 23:00 POC BUN 34 mg/dl (7-18) H 03/10/23 23:00 BUN 26 mg/dl (6-23) H 03/15/23 05:34 Creatinine 1.52 mg/dl (0.6-1.4) H 03/15/23 05:34 POC Creatinine 1.4 mg/dl (0.6-1.3) H 03/10/23 23:00 Est Cr Clr Drug Dosing 37.8 ml/min 03/15/23 05:34 Est GFR ( Amer) 47.7 ml/min 03/15/23 05:34 Est GFR (Non-Af Amer) 41.2 ml/min 03/15/23 05:34 BUN/Creatinine Ratio 17.1 (10-20) 03/15/23 05:34 Glucose 149 mg/dl (70-99(Fasting)) H 03/15/23 05:34 POC Glucose 164 mg/dl (70-99) H 03/15/23 07:15 POC Glucose (other) 646 mg/dl (70-99) H* 03/10/23 23:00 Estimat Average Glucose 280 mg/dl 03/11/23 03:54 Hemoglobin A1c 11.4 % (4.5-5.6) H 03/11/23 03:54 Calcium 8.0 mg/dl (8.6-10.3) L 03/15/23 05:34 POC Ioniz Calcium Liudmila 1.04 mmol/l (1.12-1.32) L 03/10/23 23:00 Phosphorus 3.3 mg/dl (2.5-4.9) 03/12/23 06:20 Magnesium 1.7 mg/dl (1.7-2.4) 03/12/23 06:20 Total Bilirubin 0.4 mg/dl (0.2-1.0) 03/15/23 05:34 AST 12 U/L (13-39) L 03/15/23 05:34 ALT 6 U/L (7-52) L 03/15/23 05:34 Alkaline Phosphatase 82 U/L (34-104) 03/15/23 05:34 Total Creatine Kinase 58 U/L (30-223) 03/10/23 22:52 Troponin I High Sens 21.7 pg/ml (0-20) H 03/11/23 09:25 B-Natriuretic Peptide 151 pg/ml (0-100) H 03/11/23 00:13 Total Protein 5.6 gm/dl (6.0-8.3) L 03/15/23 05:34 Albumin 3.0 gm/dl (3.4-5.0) L 03/15/23 05:34 Globulin 2.6 gm/dl (2.5-4.0) 03/15/23 05:34 Albumin/Globulin Ratio 1.2 (0.9-2) 03/15/23 05:34 25-OH Vitamin D Total 12.2 ng/ml (30-100) L 03/14/23 05:57 TSH 2.785 uIu/ml (0.300-4.500) 03/10/23 22:52 Urine Color Yellow 03/12/23 14:11 Urine Appearance Turbid (Clear) A 03/12/23 14:11 Urine pH 5.5 (4.5-7.5) 03/12/23 14:11 Ur Specific [place] 1.014 (1.000-1.030) 03/12/23 14:11 Urine Protein 2+ (Negative) H 03/12/23 14:11 Urine Glucose (UA) Trace (Negative) H 03/12/23 14:11 Urine Ketones Negative (Negative) 03/12/23 14:11 Urine Blood 3+ (Negative) H 03/12/23 14:11 Urine Nitrite Negative (Negative) 03/12/23 14:11 Urine Bilirubin Negative (Negative) 03/12/23 14:11 Urine Urobilinogen Negative (Negative) 03/12/23 14:11 Ur Leukocyte Esterase 3+ (Negative) H 03/12/23 14:11 Urine WBC (Auto) >30 /hpf (0-5) H 03/12/23 14:11 Urine RBC (Auto) 5-10 /hpf (0-4) H 03/12/23 14:11 U Hyaline Cast (Auto) 1-5 /lpf (0-5) 03/12/23 14:11 U Epithel Cells (Auto) 0-5 /lpf (0-5) 03/12/23 14:11 Urine Bacteria (Auto) Negative (Negative) 03/12/23 14:11 Urine Yeast Not Reportable 03/12/23 14:11 Random Vancomycin 9.6 mcg/ml (10-20) L 03/15/23 05:34 Adenovirus (PCR) Not Detected (NotDetected) 03/10/23 Unknown B. pertussis DNA (PCR) Not Detected (NotDetected) 03/10/23 Unknown B.parapertussis DNA PCR Not Detected (NotDetected) 03/10/23 Unknown C. pneumoniae DNA (PCR) Not Detected (NotDetected) 03/10/23 Unknown Coronavirus OC43 (PCR) Not Detected (NotDetected) 03/10/23 Unknown Coronavirus HKU1 (PCR) Not Detected (NotDetected) 03/10/23 Unknown Coronavirus 229E (PCR) Not Detected (NotDetected) 03/10/23 Unknown SARS-CoV-2 (PCR) Not Detected (NotDetected) 03/10/23 Unknown Coronavirus NL63 (PCR) Not Detected (NotDetected) 03/10/23 Unknown Human Metapneumovir PCR Not Detected (NotDetected) 03/10/23 Unknown Influenza Type A (PCR) Not Detected (NotDetected) 03/10/23 Unknown Influenza Type B (PCR) Not Detected (NotDetected) 03/10/23 Unknown M. pneumoniae (PCR) Not Detected (NotDetected) 03/10/23 Unknown Parainfluenza 1 (PCR) Not Detected (NotDetected) 03/10/23 Unknown Parainfluenza 2 (PCR) Not Detected (NotDetected) 03/10/23 Unknown Parainfluenza 3 (PCR) Not Detected (NotDetected) 03/10/23 Unknown Parainfluenza 4 (PCR) Not Detected (NotDetected) 03/10/23 Unknown RSV (PCR) Not Detected (NotDetected) 03/10/23 Unknown Entero/Rhino (PCR) Not Detected (NotDetected) 03/10/23 Unknown Blood Type O Positive 03/12/23 21:20 Antibody Screen NEGATIVE 03/12/23 21:[address] 03/10/23 22:21 Exam(s): CT C SPINE EXAM: CT Cervical Spine Without Intravenous Contrast CLINICAL HISTORY: Reason for exam: HI on Xarelto. TECHNIQUE: Axial computed tomography images of the cervical spine without intravenous contrast. CTDI is 23.48 mGy and DLP is 549.03 mGy-cm. Automated exposure control was utilized for the study. A dose lowering technique was utilized adhering to the principles of ALARA. COMPARISON: No relevant prior studies available. FINDINGS: Vertebrae: Grade 1 anterolisthesis of C7 relative to T1. Otherwise, alignment is maintained with preservation of vertebral body heights. No acute fracture. Discs/spinal canal/neural foramina: No significant bony spinal canal stenosis at any cervical level. C3-4, C4-5, and C5-6 spondylosis with anterior bony spurs. Uncinate spurs and facet hypertrophy cause severe right neural foramen stenosis at the C3-4 level. Facet hypertrophy and uncinate spurs cause moderate bilateral neural foramen stenosis at C4-5. No significant neural foramen stenosis at C5-6. Soft tissues: Unremarkable. IMPRESSION: No acute findings in the cervical spine. Electronically signed by: Yuri Lora M.D. 03/10/23 23:[address] 03/10/23 22:21 Exam(s): CT HEAD Without Contrast EXAM: CT Head Without Intravenous Contrast CLINICAL HISTORY: Reason for exam: HI on Xarelto. TECHNIQUE: Axial computed tomography images of the head/brain without intravenous contrast. CTDI is 38.74 mGy and DLP is 624.41 mGy-cm. Automated exposure control was utilized for the study. A dose lowering technique was utilized adhering to the principles of ALARA. COMPARISON: No relevant prior studies available. FINDINGS: Brain: Mild periventricular white matter changes, likely related to microangiopathy. No hemorrhage. Ventricles: Unremarkable. No ventriculomegaly. Bones/joints: Unremarkable. No acute fracture. Soft tissues: Unremarkable. Sinuses: Unremarkable as visualized. No acute sinusitis. Mastoid air cells: Unremarkable as visualized. No mastoid effusion. IMPRESSION: Mild periventricular white matter changes, likely related to microangiopathy. Electronically signed by: Yuri Lora M.D. 03/10/23 22:59 PM Chest X-Ray 03/10/23 22:22 XR chest 1V portable CLINICAL HISTORY: Weakness. Fall. COMPARISON STUDY: No previous studies for comparison. FINDINGS: Slight elevation of the right hemidiaphragm. Lungs are clear. There is no pneumothorax or pleural effusion. Skin folds project over the chest. Cardiac size is normal. Mediastinal contours are normal. There is no evidence for pulmonary edema. IMPRESSION: No acute cardiopulmonary findings. ACT 112: Negative or not required by law. Electronically signed by: Fidel Suggs M.D. 03/11/2023 6:37 AM Hip/Pelvis X-Ray 03/10/23 22:23 XR hip LT 2V w pelvis CLINICAL HISTORY: Left hip pain following fall. COMPARISON: None FINDINGS: Sacroiliac joints and symphysis pubis are intact. No acute proximal right femoral fracture is present. 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 There is a slightly impacted left femoral neck fractu re. In addition, a nondisplaced fracture extends through the intertrochanteric portion of the left femur. IMPRESSION: 1. Acute minimally impacted left femoral neck fracture with additional nondis placed intertrochanteric component. 2. 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 ACT 112: Negative or not required by law. Electronically signed by: Fidel Suggs M.D. 03/11/2023 6:40 AM Abdomen/Pelvis CT 03/10/23 23:43 Exam(s): CT ABDOMEN + PELVIS Without Contrast EXAM: CT Abdomen and Pelvis Without Intravenous Contrast CLINICAL HISTORY: Reason for exam: DKA, UTI, ? pyelo. TECHNIQUE: Axial computed tomography images of the abdomen and pelvis without intravenous contrast. Automated exposure control was utilized for the study. A dose lowering technique was utilized adhering to the principles of ALARA. COMPARISON: No relevant prior studies available. FINDINGS: Lung bases: Bilateral dependent atelectasis. No mass. No consolidation. ABDOMEN: Liver: Unremarkable. Gallbladder and bile ducts: Pneumobilia within expected limits. No calcified stones. No ductal dilation. 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 No ductal dilation. Spleen: Unremarkable. No splenomegaly. Adrenals: Unremarkable. No mass. Kidneys and ureters: 0.2 cm nonobstructing left lower pole renal calculus. 1.2 x 0.6 cm distal right ureteral calculus best seen on series 300 image 54. The right ureter inserts more laterally than typical. It is unusual that there is no hydronephrosis of the right kidney. Stomach and bowel: Unremarkable. No obstruction. No mucosal thickening. PELVIS: Appendix: No findings to suggest acute appendicitis. Bladder: Right lateral bladder diverticulum. No stones. Reproductive: Unremarkable as visualized. ABDOMEN and PELVIS: Intraperitoneal space: Unremarkable. No free air. No significant fluid collection. Bones/joints: Left intertrochanteric hip fracture. No dislocation. Soft tissues: Unremarkable. Vasculature: Unremarkable. No abdominal aortic aneurysm. Lymph nodes: Unremarkable. No enlarged lymph nodes. IMPRESSION: 1.2 x 0.6 cm distal right ureteral calculus best seen on series 300 image 54. The right ureter inserts more laterally than typical. It is unusual that there is no hydronephrosis of the right kidney. Status post Whipple surgery. Remaining pancreas has coarse calcifications consistent with chronic calcific pancreatitis. Electronically signed by: Yuri Lora M.D. 03/11/23 02:[address] 03/10/23 23:43 Exam(s): CT LEFT HIP Without Contrast EXAM: CT Left Lower Extremity Without Intravenous Contrast, Hip CLINICAL HISTORY: Reason for exam: fall, pain. TECHNIQUE: Axial computed tomography images of the left hip without intravenous contrast. Automated exposure control was utilized for the study. A dose lowering technique was utilized adhering to the principles of ALARA. COMPARISON: No relevant prior studies available. FINDINGS: Bones/joints: Minimally displaced left intertrochanteric hip fracture. 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 No dislocation. No evidence of pathologic fracture. Soft tissues: Unremarkable. IMPRESSION: Minimally displaced left intertrochanteric hip fracture. Electronically signed by: Yuri Lora M.D. 03/11/23 02:23 AM Retrograde Pyelogram 03/11/23 13:00 FL retrograde includes kub CLINICAL HISTORY: RT COMPARISON STUDY: CT of the abdomen and pelvis March 11, 2023. FLUOROSCOPY TIME: 6 seconds. Ka, r: 1.05 mGy FLUOROSCOPIC IMAGES: 4 FINDINGS: Fluoroscopy was provided during right retrograde pyelogram with right ureteral stent insertion. Distal aspect of the stent is within the bladder. Proximal aspect of the stent is within the upper collecting system. Zhang balloon within the bladder is present. Densities projecting along the distal aspect of the right ureteral stent could reflect calculi or fragments. IMPRESSION: Fluoroscopy provided during right retrograde pyelogram with right ureteral stent insertion. ACT 112: Negative or not required by law. Electronically signed by: Fidel Suggs M.D. 03/11/2023 3:54 PM Knee X-Ray 03/11/23 18:44 XR knee LT 1 or 2V routine HISTORY: 87 years-old Male pain, AP and LAT acute left knee pain without reported trauma COMPARISON: None TECHNIQUE: 2 views of the left knee FINDINGS: Moderate size joint effusion. Demineralized appearance of the bones with minimal tricompartmental osteoarthritis. Mild circumferential soft tissue prominence. No acute fracture, dislocation or osseous erosion. IMPRESSION: 1. Soft tissue swelling without acute fracture or dislocation. 2. Moderate-sized joint effusion. ACT 112: Negative or not required by law. The above report was generated using voice recognition software. It may contain grammatical, syntax or spelling errors. Electronically signed by: Jaleel Healy M.D. 03/12/2023 7:53 AM Hip X-Ray 03/13/23 09:00 FL hip LT 2-3V CLINICAL HISTORY: LEFT TROCHANTERIC NAIL HIP COMPARISON STUDY: Left hip radiographs March 10, 2023. CT of the left hip March 11, 2023. FLUOROSCOPY TIME: 125.9 seconds. Ka, r: 29.60 mGy FLUOROSCOPIC IMAGES: 4 FINDINGS: Fluoroscopy was provided during open reduction and internal fixation of the left femoral fracture involving the neck and intertrochanteric portion of the left femur with trochanteric nail. Fracture alignment appears near anatomic. Hardware is intact. There are no unexpected radiopaque foreign bodies. IMPRESSION: Fluoroscopy provided during open reduction and internal fixation of the proximal left femoral fracture with trochanteric nail. ACT 112: Negative or not required by law. Electronically signed by: Fidel Suggs M.D. 03/13/2023 11:[address] 03/13/23 13:49 Exam(s): CT LEFT KNEE Without Contrast EXAM: CT Left Lower Extremity Without Intravenous Contrast, Knee CLINICAL HISTORY: Reason for exam: left knee pain; s/p fall; hemarthrosis. TECHNIQUE: Axial computed tomography images of the left knee without intravenous contrast. Automated exposure control was utilized for the study. A dose lowering technique was utilized adhering to the principles of ALARA. COMPARISON: No relevant prior studies available. FINDINGS: Bones/joints: PCL footprint avulsion fracture, with the fracture fragment measuring approximately 1.5 x 1.1 cm and is by approximately 4 mm. Diffuse osseous demineralization. Moderate knee joint effusion. Intramedullary nail in the distal femur, with one interlocking screw. No dislocation. Soft tissues: Unremarkable. IMPRESSION: 1. PCL footprint avulsion fracture, with the fracture fragment measuring approximately 1.5 x 1.1 cm and is by approximately 4 mm. 2. Moderate knee joint effusion. Electronically signed by: Garth Muñoz MD 03/13/23 22:43 PM
[2023-03-15] MEDS: oxyCODONE HCL IR 5 MG TAB (IMMEDIATE RELEASE) PO PRN ×3 (10:47→19:24)
[2023-03-15] MEDS ORDERED: LACTATED RINGER'S 500 ML IV SCH ×2 (11:15)
--- NOTE | 2023-03-15 15:42 | Pharmacy Report ---
Pharmacy PK ABX Note - Date of Service March 15, 2023 - Assessment and Plan Assessment 03/14: Today is Day 4 of Vancomycin therapy. Urine culture grew MRSA. Trough Vancomycin level obtained today after two days of maintenance therapy. Therefore, this level is not at steady state. Renal function seems to be worsening with Scr = 1.52 mg/dl today. 03/13/23: 87 year old M receiving vancomycin for treatment of complicated UTI (MRSA). Pertinent microbiologic data includes: urine culture growing MRSA, blood cultures show no growth at 24 hours. POD #1 s/p cystoscopy w/ right retrograde pyelogram and stent placement. Left trochanteric nailing scheduled for tomorrow. Plan is to continue ceftriaxone at this time given recent urologic procedure. SCr has downtrended from admission (1.62 -> 1.33 mg/dL). Unsure of baseline clearance. Day # 1 of antimicrobial therapy. Plan Vancomycin * Current regimen: 1250 mg IV every 24 hours * Trough level of 9.6 mcg/mL at 05:34 AM today is subtherapeutic but not at steady state. * Predicted AUC at steady state: 473 mg/L.hr * Continued Vancomycin 1250 mg IV q24h * Goal target AUC/GIL of 400-600 mg/L.hr * Repeat trough level ordered for: 03/16/23 Pharmacy will continue to follow and will adjust dose/frequency as necessary. Thank you. Pharmacy has transitioned to AUC monitoring for vancomycin. AUC/GIL is the preferred PK/PD target and is associated with decreased risk of nephrotoxicity compared to traditional trough targets. Ceftriaxone * 2 g IV q24h - appropriate Pharmacy will continue to follow and will adjust dose/frequency as necessary. Thank you. Pharmacy has transitioned to AUC monitoring for vancomycin. AUC/GIL is the preferred PK/PD target and is associated with decreased risk of nephrotoxicity compared to traditional trough targets.
--- NOTE | 2023-03-15 15:56 | Pharmacy Report ---
Pharmacy Glycemic Short Note 2 - Date of Service March 15, 2023 - Glycemic Short BSG Results (Last 24 hours): 03/14/23 03/14/23 03/15/23 16:26 19:59 05:34 Glucose 149 H POC Glucose 128 H 113 H 03/15/23 03/15/23 07:15 11:17 Glucose POC Glucose 164 H 173 H OUTPATIENT ANTIDIABETIC REGIMEN: * metformin 1 g PO BIDM HbA1c: 11.4% (03/11/23) ASSESSMENT: 03/15: * IV steroid effects should have worn off today. Fasting bSG was 149 mg/dl. Continued basal insulin 10 units in AM and added 5 units in PM. * Novolog parameters were loosened last night. Continued this today. 03/14/23: * POD1, received Dexamethasone 4mg IV in OR yesterday, resulting in blood sugars in the 200s, tighten CF/CR to cover steroid effects, then loosen as they wear off. * Resume AM Lantus (held yesterday for NPO). 03/13/23: * Blood sugars well controlled yesterday on 10 units basal, 17 units bolus insulin. * NPO today for orthopedic surgery with Dr Leiva - hold AM basal, PRN HS tonight and resume AM basal tomorrow morning 03/12/23: * BSGs labile yesterday following transition to SC from insulin gtt * Given multiple BSGs below 100 mg/dL yesterday and fasting, will loosen Novolog and decrease basal today * Patient will be NPO after midnight for surgery tomorrow * POD #1 s/p cystoscopy, now on vancomycin for MRSA UTI 03/11/23: * 87 year old male admitted s/p fall. Also presenting with DKA, concerns for UTI/kidney stone. Type 2 diabetic only on metformin at home. A1c pending. Labs normalizing this AM, therefore was transitioned off insulin drip with Lantus 20 units, continues on novolog SSI only * Patient remains NPO this AM in case of procedure. Plan to continue novolog for today PLAN FOR INPATIENT GLYCEMIC CONTROL: * Hold outpatient oral diabetes medications * Basal insulin * Lantus 10 units SQ Daily * Lantus 5 units SC HS * Bolus insulin * NovoLog per scale ACHS or Q6hrs while NPO * Goal Range: Low 110 mg/dL - High 140 mg/dL * Correction Factor: 20 mg/dL/unit * Nutritional / Prandial insulin per carb ratio of 1 unit per 8 grams CHO consumed
[2023-03-15] MEDS ORDERED: LANTUS PER UNIT CHARGE SC SCH (21:00)
[2023-03-16] MEDS: oxyCODONE HCL IR 5 MG TAB (IMMEDIATE RELEASE) PO PRN (05:43)
[2023-03-16] MEDS: ACETAMINOPHEN 325 MG TAB PO SCH ×5 (05:43→20:40)
[2023-03-16] MEDS: VANCOMYCIN HCL 1,250 MG in SODIUM CHLORIDE 0.9% 250 ML IV SCH (05:44)
[2023-03-16 06:19] LABS: Basophils # (auto) 0.05 K/uL (0-0.2); Basophils % (auto) 0.7 %; Eosinophils # (auto) 0.29 K/uL (0-0.50); Eosinophils % (auto) 4.2 %; Hematocrit (blood only) 25.8 % (42.0-52.0); Hemoglobin 7.6 g/dl (14.0-18.0); Immature Granulocytes # (auto) 0.23 K/uL (0.01-0.20); Immature Granulocytes % (auto) 3.4 %; Lymphocytes # (auto) 1.24 K/uL (1.2-3.4); Lymphocytes % (auto) 18.1 %; Mean Corpuscular Hemoglobin 24.1 pg (25.0-34.0); Mean Corpuscular Hgb Conc 29.5 g/dL (32.0-36.0); Mean Corpuscular Volume 81.9 fL (80.0-100.0); Mean Platelet Volume 9.8 fL (9.4-12.4); Monocytes # (auto) 0.67 K/uL (0.11-0.59); Monocytes % (auto) 9.8 %; Neutrophils # (auto) 4.37 K/uL (1.40-6.50); Neutrophils % (auto) 63.8 %; Platelet Count 301 K/uL (130-400); RDW Coefficient of Variation 17.2 % (11.5-14.5); RDW Standard Deviation 51.1 fL (36.4-46.3); Red Blood Count 3.15 M/uL (4.70-6.10); White Blood Count 6.85 K/ul (4.8-10.8)
[2023-03-16 06:29] LABS: BUN Creatinine Ratio 19.9 (10-20); Calcium 8.1 mg/dl (8.6-10.3); Creatinine Clr Calc Pharmacy 42.3 ml/min; Est GFR (African American) 54.6 ml/min; Est GFR (Non-African American) 47.1 ml/min; Potassium 4.1 mmol/L (3.5-5.1)
[2023-03-16 06:45] LABS: Hypochromasia Present
--- NOTE | 2023-03-16 07:20 | Hospitalist Progress Note ---
Date of Service March 16, 2023 Assessment & Plan (1) Hip fracture, left: (2) Complicated UTI (urinary tract infection): (3) DKA (diabetic ketoacidosis): (4) Kidney stone on right side: (5) Atrial fibrillation: (6) Elevated troponin: (7) History of Whipple procedure: (8) BPH (benign prostatic hyperplasia): (9) Fall from standing: (10) Acute pain of left knee: (11) S/P ORIF (open reduction internal fixation) fracture: Nic Ingram is an 87 y/o M with a past medical history of type 2 diabetes on metformin, atrial fibrillation on Xarelto, previous complicated UTIs, history of Whipple procedure, and chronic pancreatitis who presents to the hospital after experiencing a fall. He was in diabetic ketoacidosis likely secondary to urinary tract infection associated with a right kidney stone and found to have a left intertrochanteric hip fracture. #Complicated UTI -ID consult appreciated given several prior UTIs: continue vancomycin. On discharge transition to TMP/SMX 2 DS tabs PO q12h (CrCl ~30-49) to complete a 10 day course (03/12 - 03/21).. We will transition to Bactrim once discharged. -Ureteral stent removal as able -Initial urine culture grew MRSA, repeat culture from [facility] growing gram positive cocci with no sensitivities to follow -Blood cultures negative #Intertrochanteric hip fracture, left -Surgical intervention 03/13/23: closed reduction, insertion of a long trochanteric femoral nail -Scheduled Tylenol, PRN morphine -Resumed Xarelto for AFIB on 03/14/23 -PT/OT both recommending inpatient rehab. Weight bearing as tolerated. -Vitamin D level was 12.2. 50,000 units PO weekly initiated -Pending placement for inpatient rehab #Acute pain of left knee -L knee CT on 03/13 showed PCL footprint avulsion fracture. ~75mL of blood was aspirated from left knee on 03/13 during surgery -[facility] can weight-bear as tolerated. Can use knee immobilizer if painful or unstable. -Analgesia as above #Kidney stone, right side -S/p cystoscopy, right retrograde pyelogram, right ureteral stent placement on 03/11/23 -Urology planning for stone treatment 1-2 weeks after stent placement -Continue IVF, Zhang catheter, analgesia as above #Diabetic ketoacidosis,resolved -HgbA1C: 11.4%. Home dose of metformin 1g PO BID -Lantus 10u daily -Blood glucose, electrolytes within range. Tolerating diet by mouth #Atrial fibrillation -Tele shows paroxysms of AFIB with some PACs/PVCs -Continue Xarelto and metoprolol succinate #Elevated serum creatinine, resolved -Creatinine improving. Suspect CKD due to uncontrolled diabetes. -Renally dose medications -Resolved on 03/16 #Benign prostatic hyperplasia -Finasteride FENGI: carb consistent/DM2. Disposition: Telemetry DVT prophylaxis: Xarelto Code Status: Full code Admission and Anticipated Discharge Date Admission Date: March 11, 2023 Supervising Physician Co-Signing Physician Notes Attending attestation Pt seen and examined in concert with Dr. Martines. In agreement with the documented findings as noted in the resident documentation with any exceptions or additions as noted here. No acute complaints, pain is well controlled with present analgesia. Motivated to work with PT/OT, looking forward to rehab. On examination, S1/S2 nl RRR no MCG. CTAB. Abd NT/ND BS+ve Complicated UTI w/ nephrolithiasis s/p stenting - ID consult appreciated - continue vancomycin with pending transition as noted L hip fracture, age-related osteoporotic s/p CR and nail - ortho consult appreciated - pain control as noted, encourage PT/OT engagement Else see resident documentation as noted. Subjective Patient was seen bedside this morning. No issues or concerns at this time Review of Systems Review of Systems: All systems reviewed & are unremarkable except as noted in Subjective Physical Exam Constitutional: WD/WN, vitals as above Eyes: PERRL, conjunctivae normal, anicteric sclerae Respiratory: normal respiratory effort, lungs clear to auscultation Cardiovascular: RRR, no murmur, no edema Gastrointestinal (Abdomen): normal bowel sounds, soft, nontender, no hepatosplenomegaly Musculoskeletal: Limited range of motion of left knee and left hip Skin: no rashes, warm and dry Psychiatric: A+Ox3, euthymic affect Results & Data Results & Data Vital Signs (Past 12 Hours) Vital Signs Temp Pulse Pulse Resp BP BP Pulse Ox 03/16/23 07:09 36.5 C 73 15 122/70 93 03/16/23 03:40 36.4 C L 70 16 131/65 96 03/16/23 00:00 69 03/15/23 22:57 36.8 C 77 16 114/66 94 O2 Del Method 03/16/23 07:09 Room Air 03/16/23 03:40 Room Air 03/16/23 00:00 03/15/23 22:57 Room Air Resident Activity Tracking Resident Involvement: Resident Care Provided Care Provided: Adult Hospital Medicine (3) DKA (diabetic ketoacidosis) Diabetes mellitus complication detail: without coma Diabetes mellitus type: type 2 Qualified Code(s): E11.10 - Type 2 diabetes mellitus with ketoacidosis without coma
[2023-03-16] MEDS: LANTUS PER UNIT CHARGE SC SCH (08:27)
[2023-03-16] MEDS: INSULIN ASPART PER UNIT CHARGE SC SCH ×4 (08:28→20:41)
[2023-03-16] MEDS: RIVAROXABAN 15 MG TAB PO SCH (09:16)
[2023-03-16] MEDS: FINASTERIDE 5 MG TAB PO SCH (09:16)
[2023-03-16] MEDS: PANTOprazole 40 MG TAB PO SCH (09:16)
[2023-03-16] MEDS: METOPROLOL SUCC 50MG EXT REL TAB PO SCH (09:16)
--- NOTE | 2023-03-16 09:25 | Pharmacy Report ---
Pharmacy PK ABX Note - Date of Service March 16, 2023 - Assessment and Plan Assessment 03/16: Day 5 vancomycin. 03/10 urine culture (+) MRSA. 03/12 urine culture (+) GPC 8k CFU/mL. SCr downtrending (1.39-->1.52-->1.36mg/dL). 03/14: Today is Day 4 of Vancomycin therapy. Urine culture grew MRSA. Trough Vancomycin level obtained today after two days of maintenance therapy. Therefore, this level is not at steady state. Renal function seems to be worsening with Scr = 1.52 mg/dl today. 03/13/23: 87 year old M receiving vancomycin for treatment of complicated UTI (MRSA). Pertinent microbiologic data includes: urine culture growing MRSA, blood cultures show no growth at 24 hours. POD #1 s/p cystoscopy w/ right retrograde pyelogram and stent placement. Left trochanteric nailing scheduled for tomorrow. Plan is to continue ceftriaxone at this time given recent urologic procedure. SCr has downtrended from admission (1.62 -> 1.33 mg/dL). Unsure of baseline clearance. Day # 1 of antimicrobial therapy. Plan Vancomycin * Current regimen: 1250 mg IV every 24 hours * Random vancomycin level this AM, 10.7mcg/mL (~22h level) is on the low end of therapeutic range. Predicted to achieve ssAUC 412mg/L.hr with 58% probability. * Will increase vancomycin to 1500mg IV q24h * Predicted to achieve AUC 400-600mg/L.hr * Will repeat a level around steady state of new regimen or sooner if clinically indicated Pharmacy will continue to follow and will adjust dose/frequency as necessary. Thank you. Pharmacy has transitioned to AUC monitoring for vancomycin. AUC/GIL is the preferred PK/PD target and is associated with decreased risk of nephrotoxicity compared to traditional trough targets.
--- NOTE | 2023-03-16 16:48 | Orthopedic Progress Note ---
Date of Service March 16, 2023 Assessment & Plan (1) Hip fracture, left: Plan: Doing well. Continue anticoagulation. PT OT and recommend acute care rehab placement. Admission and Anticipated Discharge Date Admission Date: March 11, 2023 Subjective No problems. Pain well controlled. Up with PT ambulating without difficulty. Physical Exam Physical Exam: Dressings clean dry. Able to bend knee about 60 degrees. Unable to do a leg lift. Minimal swelling within the knee today. Results & Data Vital Signs (Past 12 Hours) Vital Signs Temp Pulse Pulse Resp BP Pulse Ox O2 Del Method 03/16/23 15:58 36.8 C 74 17 116/65 98 Room Air 03/16/23 12:10 36.5 C 91 H 17 94 Room Air 03/16/23 11:03 70 03/16/23 07:09 36.5 C 73 15 122/70 93 Room Air
[2023-03-16] MEDS ORDERED: LANTUS PER UNIT CHARGE SC SCH (21:00)
[2023-03-17] MEDS: oxyCODONE HCL IR 5 MG TAB (IMMEDIATE RELEASE) PO PRN ×2 (00:03→06:08)
[2023-03-17] MEDS: ACETAMINOPHEN 325 MG TAB PO SCH ×5 (05:44→20:40)
[2023-03-17] MEDS: VANCOMYCIN HCL 1,500 MG in SODIUM CHLORIDE 0.9% 500 ML IV SCH (05:44)
[2023-03-17 06:48] LABS: Basophils # (auto) 0.05 K/uL (0-0.2); Basophils % (auto) 0.6 %; Eosinophils # (auto) 0.28 K/uL (0-0.50); Eosinophils % (auto) 3.4 %; Hematocrit (blood only) 25.9 % (42.0-52.0); Hemoglobin 7.7 g/dl (14.0-18.0); Immature Granulocytes # (auto) 0.32 K/uL (0.01-0.20); Immature Granulocytes % (auto) 3.8 %; Lymphocytes # (auto) 1.36 K/uL (1.2-3.4); Lymphocytes % (auto) 16.3 %; Mean Corpuscular Hemoglobin 24.2 pg (25.0-34.0); Mean Corpuscular Hgb Conc 29.7 g/dL (32.0-36.0); Mean Corpuscular Volume 81.4 fL (80.0-100.0); Mean Platelet Volume 9.4 fL (9.4-12.4); Monocytes # (auto) 0.64 K/uL (0.11-0.59); Monocytes % (auto) 7.7 %; Neutrophils # (auto) 5.67 K/uL (1.40-6.50); Neutrophils % (auto) 68.2 %; Platelet Count 335 K/uL (130-400); RDW Coefficient of Variation 17.4 % (11.5-14.5); RDW Standard Deviation 51.1 fL (36.4-46.3); Red Blood Count 3.18 M/uL (4.70-6.10); White Blood Count 8.32 K/ul (4.8-10.8)
[2023-03-17 07:10] LABS: BUN Creatinine Ratio 18.9 (10-20); Calcium 8.5 mg/dl (8.6-10.3); Creatinine Clr Calc Pharmacy 43.6 ml/min; Est GFR (African American) 56.6 ml/min; Est GFR (Non-African American) 48.8 ml/min; Potassium 4.2 mmol/L (3.5-5.1)
[2023-03-17 07:11] LABS: Hypochromasia Present
--- NOTE | 2023-03-17 07:26 | Hospitalist Progress Note ---
Date of Service March 17, 2023 Assessment & Plan (1) Hip fracture, left: (2) Complicated UTI (urinary tract infection): (3) DKA (diabetic ketoacidosis): (4) Kidney stone on right side: (5) Atrial fibrillation: (6) Elevated troponin: (7) History of Whipple procedure: (8) BPH (benign prostatic hyperplasia): (9) Fall from standing: (10) Acute pain of left knee: (11) S/P ORIF (open reduction internal fixation) fracture: Nic Ingram is an 87 y/o M with a past medical history of type 2 diabetes on metformin, atrial fibrillation on Xarelto, previous complicated UTIs, history of Whipple procedure, and chronic pancreatitis who presents to the hospital after experiencing a fall. He was in diabetic ketoacidosis likely secondary to urinary tract infection associated with a right kidney stone and found to have a left intertrochanteric hip fracture. #Complicated UTI -ID consult appreciated given several prior UTIs: continue vancomycin. On disch arge transition to TMP/SMX 2 DS tabs PO q12h (CrCl ~30-49) to complete a 10 day course (03/12 - 03/21). We will transition to Bactrim once discharged. -Ureteral stent removal infection clears. Will follow-up with urology. -Initial urine culture grew MRSA, repeat culture from [facility] growing gram pos itive cocci with no sensitivities to follow. Will assume MRSA is true urine infection. -Blood cultures negative #Intertrochanteric hip fracture, left -Surgical intervention 03/13/23: closed reduction, insertion of a long trochanteric femoral nail -Scheduled Tylenol, PRN morphine -Resumed Xarelto for AFIB on 03/14/23 -PT/OT both recommending inpatient rehab. Weight bearing as tolerated. -Vitamin D level was 12.2. 50,000 units PO weekly initiated -Pending placement for inpatient rehab #Acute pain of left knee -L knee CT on 03/13 showed PCL footprint avulsion fracture. ~75mL of blood was aspirated from left knee on 03/13 during surgery -[facility] can weight-bear as tolerated. Can use knee immobilizer if painful or unstable. -Analgesia as above #Kidney stone, right side -S/p cystoscopy, right retrograde pyelogram, right ureteral stent placement on 03/11/23 -Urology planning for stone treatment 1-2 weeks after stent placement -Continue IVF, Zhang catheter, analgesia as above #Diabetic ketoacidosis,resolved -HgbA1C: 11.4%. Home dose of metformin 1g PO BID -Lantus 10u daily -Blood glucose, electrolytes within range. Tolerating diet by mouth #Atrial fibrillation -Tele shows paroxysms of AFIB with some PACs/PVCs -Continue Xarelto and metoprolol succinate #Elevated serum creatinine, resolved -Creatinine improving. Suspect CKD due to uncontrolled diabetes. -Renally dose medications -Resolved on 03/16 -Zhang removed on 03/17. #Benign prostatic hyperplasia -Finasteride #Anemia -Stable at this time without any significant decrease in hemoglobin. Currently at 7.7 on 03/17. -Fecal blood cultures negative. -Likely secondary to dilution effect, though we will continue to monitor while admitted. -Should not hold up discharge to inpatient rehab, recommend repeat CBC in 1 week postdischarge. FENGI: carb consistent/DM2. Disposition: Clinically stable at this point, currently pending placement to inpatient rehab. DVT prophylaxis: Xarelto Code Status: Full code Admission and Anticipated Discharge Date Admission Date: March 11, 2023 Supervising Physician Co-Signing Physician Notes Attending attestation Pt seen and examined in concert with Dr. Martines. In agreement with the documented findings as noted in the resident documentation with any exceptions or additions as noted here. No acute complaints, pain is well controlled with present analgesia. Motivated to work with PT/OT, looking forward to rehab. On examination, S1/S2 nl RRR no MCG. CTAB. Abd NT/ND BS+ve Hgb 7.7 FOBT negative Cr 1.32 Complicated UTI w/ nephrolithiasis s/p stenting - ID consult appreciated - continue vancomycin with pending transition as noted L hip fracture, age-related osteoporotic s/p CR and nail - ortho consult appreciated - pain control as above, encourage PT/OT engagement Else see resident documentation as noted. Subjective Patient was seen bedside this morning. No issues or complaints at this time. Review of Systems Review of Systems: All systems reviewed & are unremarkable except as noted in Subjective Physical Exam Constitutional: WD/WN, vitals as above Eyes: PERRL, conjunctivae normal, anicteric sclerae Respiratory: normal respiratory effort, lungs clear to auscultation Cardiovascular: RRR, no murmur, no edema Gastrointestinal (Abdomen): normal bowel sounds, soft, nontender, no hepatosplenomegaly Skin: no rashes, warm and dry Neurologic: patellar DTR's 2+ bilat, sensation intact Psychiatric: A+Ox3, euthymic affect Results & Data Results & Data Vital Signs (Past 12 Hours) Vital Signs Temp Pulse Resp BP Pulse Ox O2 Del Method 03/17/23 02:57 36.5 C 70 16 123/69 95 Room Air 03/16/23 23:24 36.6 C 68 16 106/64 93 Room Air 03/16/23 19:40 Room Air 03/16/23 19:51 37.1 C 68 16 103/58 L 94 Room Air Laboratory Results 03/17/23 06:05 03/17/23 06:05 Resident Activity Tracking Resident Involvement: Resident Care Provided Care Provided: Adult Hospital Medicine (3) DKA (diabetic ketoacidosis) Diabetes mellitus complication detail: without coma Diabetes mellitus type: type 2 Qualified Code(s): E11.10 - Type 2 diabetes mellitus with ketoacidosis without coma
[2023-03-17] MEDS: INSULIN ASPART PER UNIT CHARGE SC SCH ×4 (08:39→20:41)
[2023-03-17] MEDS: LANTUS PER UNIT CHARGE SC SCH ×2 (08:39→20:42)
[2023-03-17] MEDS: PANTOprazole 40 MG TAB PO SCH (08:40)
[2023-03-17] MEDS: METOPROLOL SUCC 50MG EXT REL TAB PO SCH (08:40)
[2023-03-17] MEDS: FINASTERIDE 5 MG TAB PO SCH (08:40)
[2023-03-17] MEDS: RIVAROXABAN 15 MG TAB PO SCH (08:40)
[2023-03-17] MEDS: traMADol HCL 50 MG TABLET PO PRN (13:51)
[2023-03-18] MEDS: VANCOMYCIN HCL 1,500 MG in SODIUM CHLORIDE 0.9% 500 ML IV SCH (05:47)
[2023-03-18] MEDS: ACETAMINOPHEN 325 MG TAB PO SCH ×3 (05:48→12:04)
[2023-03-18] MEDS: oxyCODONE HCL IR 5 MG TAB (IMMEDIATE RELEASE) PO PRN (05:49)
--- NOTE | 2023-03-18 07:13 | Hospitalist Progress Note ---
Date of Service March 18, 2023 Assessment & Plan (1) Hip fracture, left: (2) Complicated UTI (urinary tract infection): (3) DKA (diabetic ketoacidosis): (4) Kidney stone on right side: (5) Atrial fibrillation: (6) Elevated troponin: (7) History of Whipple procedure: (8) BPH (benign prostatic hyperplasia): (9) Fall from standing: (10) Acute pain of left knee: (11) S/P ORIF (open reduction internal fixation) fracture: Nic Ingram is an 87 y/o M with a past medical history of type 2 diabetes on metformin, atrial fibrillation on Xarelto, previous complicated UTIs, history of Whipple procedure, and chronic pancreatitis who presents to the hospital after experiencing a fall. He was in diabetic ketoacidosis likely secondary to urinary tract infection associated with a right kidney stone and found to have a left intertrochanteric hip fracture. #Complicated UTI -ID consult appreciated given several prior UTIs: continue vancomycin. On discharge transition to TMP/SMX 2 DS tabs PO q12h (CrCl ~30-49) to complete a 10 day course (03/12 - 03/21). We will transition to Bactrim once discharged. -Ureteral stent removal infection clears. Will follow-up with urology. -Initial urine culture grew MRSA, repeat culture from [facility] growing gram pos itive cocci with no sensitivities to follow. Will assume MRSA is true urine infection. -Blood cultures negative #Intertrochanteric hip fracture, left -Surgical intervention 03/13/23: closed reduction, insertion of a long trochanteric femoral nail -Scheduled Tylenol, PRN morphine -Resumed Xarelto for AFIB on 03/14/23 -PT/OT both recommending inpatient rehab. Weight bearing as tolerated. -Vitamin D level was 12.2. 50,000 units PO weekly initiated -Pending placement for inpatient rehab #Acute pain of left knee -L knee CT on 03/13 showed PCL footprint avulsion fracture. ~75mL of blood was aspirated from left knee on 03/13 during surgery -[facility] can weight-bear as tolerated. Can use knee immobilizer if painful or unstable. -Analgesia as above #Kidney stone, right side -S/p cystoscopy, right retrograde pyelogram, right ureteral stent placement on 03/11/23 -Urology planning for stone treatment 1-2 weeks after stent placement -Continue IVF, Zhang catheter, analgesia as above #Diabetic ketoacidosis,resolved -HgbA1C: 11.4%. Home dose of metformin 1g PO BID -Lantus 10u daily -Blood glucose, electrolytes within range. Tolerating diet by mouth #Atrial fibrillation -Tele shows paroxysms of AFIB with some PACs/PVCs -Continue Xarelto and metoprolol succinate #Elevated serum creatinine, resolved -Creatinine improving. Suspect CKD due to uncontrolled diabetes. -Renally dose medications -Resolved on 03/16 -Zhang removed on 03/17. #Benign prostatic hyperplasia -Finasteride #Anemia -Stable at this time without any significant decrease in hemoglobin. Currently at 7.7 on 03/17. -Fecal blood cultures negative. -Likely secondary to dilution effect, though we will continue to monitor while admitted. -Should not hold up discharge to inpatient rehab, recommend repeat CBC in 1 week postdischarge. FENGI: carb consistent/DM2. Disposition: Clinically stable at this point, currently pending placement to inpatient rehab. DVT prophylaxis: Xarelto Code Status: Full code Admission and Anticipated Discharge Date Admission Date: March 11, 2023 Subjective Patient was seen bedside this morning. No issues or complaints at this time. Review of Systems Review of Systems: Please refer to HPI Results & Data Results & Data Vital Signs (Past 12 Hours) Vital Signs Temp Pulse Pulse Resp BP Pulse Ox O2 Del Method 03/18/23 03:21 36.8 C 73 18 125/69 95 Room Air 03/17/23 23:59 74 03/17/23 23:27 37.0 C 76 18 113/62 94 Room Air 03/17/23 19:50 36.9 C 70 18 110/62 93 Room Air 03/17/23 19:20 Room Air (3) DKA (diabetic ketoacidosis) Diabetes mellitus complication detail: without coma Diabetes mellitus type: type 2 Qualified Code(s): E11.10 - Type 2 diabetes mellitus with ketoacidosis without coma
[2023-03-18] MEDS: INSULIN ASPART PER UNIT CHARGE SC SCH ×2 (08:12→12:02)
[2023-03-18] MEDS: FINASTERIDE 5 MG TAB PO SCH (08:15)
[2023-03-18] MEDS: RIVAROXABAN 15 MG TAB PO SCH (08:16)
[2023-03-18] MEDS: PANTOprazole 40 MG TAB PO SCH (08:16)
[2023-03-18] MEDS: METOPROLOL SUCC 50MG EXT REL TAB PO SCH (08:16)
[2023-03-18] MEDS ORDERED: LANTUS PER UNIT CHARGE SC SCH (09:00)
--- NOTE | 2023-03-18 09:28 | Orthopedic Progress Note ---
Date of Service March 18, 2023 Assessment & Plan (1) S/P ORIF (open reduction internal fixation) fracture: (2) Acute pain of left knee: Plan 87-year-old male status post left hip ORIF and left knee PCL avulsion injury Patient can be weightbearing as tolerated with walker Allow for full range of motion Knee immobilizer for left knee when ambulating PT/OT Dressing change as needed Continue Xarelto and Red compression stockings SCDs while in house Patient will be discharged to [facility] Follow-up outpatient as scheduled with [facility] orthopedics Admission and Anticipated Discharge Date Admission Date: March 11, 2023 Subjective Patient was seen and examined bedside this morning. He says that he is doing well. His pain is a 3/4 out of 10. He has no issues or complaints this morning. He says that he is going to [facility]. He has been doing physical therapy and so that is going well. He is getting around well with a walker. Physical Exam Physical Exam: Left lower extremity: Dressings are intact, clean and dry. There is some very minor drainage noted on the proximal incision. Thigh is soft and compressible. Patient has very minimal pain. There is no surrounding erythema or ecchymosis. Patient is able to fully extend and slightly flex his knee about 30 degrees. He is able to tolerate passive abduction and abduction of his hip. He has full strength with dorsiflexion and plantarflexion actively against resistance. Negative logroll. Patient unable to do straight leg raise. Minimal knee swelling noted.Neurovascular intact. Results & Data Vital Signs (Past 12 Hours) Vital Signs Temp Pulse Pulse Resp BP Pulse Ox O2 Del Method 03/18/23 07:32 36.6 C 71 18 118/64 95 Room Air 03/18/23 03:21 36.8 C 73 18 125/69 95 Room Air 03/17/23 23:59 74 03/17/23 23:27 37.0 C 76 18 113/62 94 Room Air
--- NOTE | 2023-03-18 11:58 | Discharge Summary ---
Date of Service March 18, 2023 Admission HPI Per Admitting Provider Patient is an 87-year-old male with a past medical history of type 2 diabetes, atrial fibrillation, previous complicated UTIs, history of Whipple procedure, and chronic pancreatitis who presents to the hospital after experiencing a fall. History goes that the patient was out to dinner this evening and as he was getting out of the car and turned to walk on the sidewalk, the patient fell but he does not remember how. Not sure if he tripped or if he collapsed. Reports that he does not feel that he lost consciousness. He does report that he hit his head and his left hip is quite painful and requesting pain medication. Denies any nausea or vomiting. Patient is a type II diabetic and only takes metformin at home. Patient overall is not the best historian on his health and chronic medical conditions. He is able to tell me that he has a history of A- fib, type 2 diabetes and some of the medications that he is taking, but does have difficulty describing other medications that he is taking. He informs me that his son will bring his medications tomorrow morning. He is on Xarelto for A-fib clot prophylaxis. Patient denies ever having a heart attack or stroke. Denies any smoking history. Drinks only socially and has been month since his last drink. Denies missing any doses of medication. Of note, patient recently moved from [place] to [place] and he does not have a primary care provider in the area as of yet. He does describe to me that he has a history of complicated urinary tract infections in the past that have required extensive antibiotic treatment and he does state at one point he was on 2 very broad- spectrum antibiotics for a long time in order to get adequately treated. I request for the patient's records have been made but we will not be able to get these until tomorrow at the earliest. Currently, patient is alert and oriented x3 and does report some pain in his left hip. Otherwise overall doing okay and has no other complaints at this time. ED course: Patient was seen by one of our ED providers. Labs were significant for a white blood cell count of 14.5, VBG pH of 7.3, sodium of 131, potassium of 5.1, glucose of 649, high-sensitivity troponin of 21.2, BNP of 151, and a positive urinalysis for protein, glucose, trace ketones, blood, nitrites, leukocyte esterase, white blood cells, and bacteria. Hip CT did reveal a minimally displaced left intertrochanteric hip fracture, abdomen and pelvic CT did show a 1.2 x 0.6 cm right ureteral calculus without hydronephrosis, and chest x-ray does appear to show borderline cardiomegaly with increased vascular markings. Head CT and neck CT were negative. Due to elevated sugar and mild acidemia, patient was started on DKA protocol and put on a insulin drip and aggressive IV fluid. Patient was also given a dose of Rocephin. The hospitalist service was then consulted for admission and further treatment. Admission Exam Per Admitting Provider Constitutional: WD/WN, vitals as above Eyes: + anicteric sclerae ENMT: external ear and nose normal, oropharynx normal Neck: trachea midline, no thyromegaly Respiratory: normal respiratory effort, lungs clear to auscultation Cardiovascular: RRR, no murmur, no edema Gastrointestinal (Abdomen): Inspection/Auscultation: abdomen normal to inspection and normal bowel sounds Percussion/Palpation: abdomen soft Musculoskeletal: Head/Neck/Chest: normocephalic and head atraumatic Skin: There is abrasion on the left forehead without evidence of hematoma. Skin was otherwise normal. Neurologic: moves all extremities Psychiatric: A+Ox3, euthymic affect Principal Diagnosis hip fracture Discharge Exam Gen: well appearing elderly gentleman in NAD HEENT: AT NC Resp: CTAB no wheezing or crackles CV: RRR no m/r/g clinically well perfused no edema Abd: non-distended MSK: no gross deformities Psych: appropriate mood and affect Neuro: alert and oriented Discharge Data Allergies Allergy/AdvReac Type Severity Reaction Status Date / Time heparin AdvReac Thrombocyto Verified 03/11/23 02:28 penia Consultations 03/11/23 00:24 ED Decision to Admit Stat 03/11/23 01:04 ED Decision to Admit Stat 03/11/23 02:30 Consult Orthopedic Surgery Routine 03/11/23 03:04 Consult Urology Routine 03/14/23 15:20 Consult Infectious Diseases Routine Procedures Performed Operation Date: 03/13/23 09:00 Actual Procedures p Closed Reduction Internal Fixation Left Hip Fracture, Left knee aspiration (Left) - Hieu Leiva MD Ordered Studies 03/10/23 22:21 CT cervical spine wo con Stat CT head/brain wo con Stat 03/10/23 23:43 CT abd pelvis wo con Stat CT hip LT wo con Stat 03/11/23 13:00 FL retrograde includes kub Routine 03/13/23 09:00 FL hip LT 2-3V Routine 03/13/23 13:49 CT knee LT wo con Routine Diabetes Follow up Diabetes Follow-up Needed for HgbA1c >9% Hospital Course (1) Hip fracture, left: (2) Complicated UTI (urinary tract infection): (3) DKA (diabetic ketoacidosis): (4) Kidney stone on right side: (5) Atrial fibrillation: (6) Elevated troponin: (7) History of Whipple procedure: (8) BPH (benign prostatic hyperplasia): (9) Fall from standing: (10) Acute pain of left knee: (11) S/P ORIF (open reduction internal fixation) fracture: Nic Ingram is an 87 y/o M with a past medical history of type 2 diabetes on metformin, atrial fibrillation on Xarelto, previous complicated UTIs, history of Whipple procedure, and chronic pancreatitis who presents to the hospital after a fall with subsequent left hip fracture found to be in DKA with right kidney stone and complicated UTI now s/p stent placement 03/11 and ORIF 03/13/23 who is stable for discharge to inpatient rehab. #Complicated UTI S/p stent placement. Will follow with urology. ID consult appreciated given several prior UTIs. Urine cx grew MRSA. Blood cx negative. Continue vancomycin while inpatient. On discharge transition to TMP/SMX 2 DS tabs PO q12h (CrCl ~30- 49) to complete a 10 day course (03/12 - 03/21).We will transition to Bactrim upon discharged with last dose 03/21 evening. #Intertrochanteric hip fracture, left ORIF 03/13/23. Pain well controlled with scheduled Tylenol, PRN oxycodone, and PRN tramadol. Continue with current pain regimen at rehab. PT/OT rec inpatient rehab. #Vitamin D Deficiency Found to be profoundly vitamin D deficient at 12.2. Likely contributory to fracture. Will do 50,000 units every 7 days for 6 weeks. #Atrial fibrillation Tele shows paroxysms of AFIB with some PACs/PVCs. Continue Xarelto and metoprolol succinate #Acute pain of left knee L knee CT on 03/13 showed PCL footprint avulsion fracture. ~75mL of blood was aspirated from left knee on 03/13 during surgery. Continue with inpatient rehab. Tylenol scheduled. #Kidney stone, right side S/p cystoscopy, right retrograde pyelogram, right ureteral stent placement on 03/11/23. Urology planning for stone treatment 1-2 weeks after stent placement. Will complete course of abx and f/u urology. #Diabetic ketoacidosis,resolved HgbA1C: 11.4%. Home dose of metformin 1g PO BID. Patient initially in DKA in setting of acute complication UTI. Since resolved. Resume home meds. #Elevated serum creatinine, resolved JENN on ?CKD. Likely in setting of UTI/DM/Kidney stone. Renally dosed medications during hospital stay. #Benign prostatic hyperplasia Finasteride #Anemia Stable at this time without any significant decrease in hemoglobin.Currently at 7.7 on 03/17. Fecal occult blood negative. Likely secondary to dilution effect, though we will continue to monitor while admitted. Repeat CBC 1 week following discharge FENGI: carb consistent/DM2. Disposition: Clinically stable at this point, [facility] Code Status: Full code Total Time Total Time Spent Total Time Spent (In Minutes): see attending attestation Discharge Plan Discharge Items Patient Disposition: Transfer [facility] Reason For Visit: FALL Discharge Diagnosis: left hip fracture left knee effusion Condition on Discharge: Fair Activity: Per Instructions section Non-emergency contact: Primary Care Provider and Surgeon Call non-emergency contact if: your pain is not controlled, your temperature is above 101 and your wound has increased drainage Follow-up/Referrals: Angie Mobley PA-C [[facility] [employer]] - 03/27/23 10:30 am Greg Martines DO [Resident] - (1 week after discharge. ) PCP,NO [Primary Care Provider] - Diet: Regular Addtl Attending Provider Instructions: Juan Jsoe is an 87 y/o M with a past medical history of type 2 diabetes on metformin, atrial fibrillation on Xarelto, previous complicated UTIs, history of Whipple procedure, and chronic pancreatitis who presents to the hospital after experiencing a fall with subsequent left hip fracture now s/p ORIF 03/13/23 and stable for discharge. #Complicated UTI S/p stent placement. Will follow with urology. ID consult appreciated given several prior UTIs. Urine cx grew MRSA. Blood cx negative. Continue vancomycin while inpatient. On discharge transition to TMP/SMX 2 DS tabs PO q12h (CrCl ~30- 49) to complete a 10 day course (03/12 - 03/21).We will transition to Bactrim upon discharged with last dose 03/21 evening.. #Intertrochanteric hip fracture, left ORIF 03/13/23. Pain well controlled with scheduled Tylenol, PRN oxycodone, and PRN tramadol. Continue with current pain regimen at rehab. PT/OT rec inpatient rehab. #Vitamin D Deficiency Found to be profoundly vitamin D deficient at 12.2. Likely contributory to fracture. Will do 50,000 units every 7 days for 6 weeks. #Atrial fibrillation Tele shows paroxysms of AFIB with some PACs/PVCs. Continue Xarelto and metoprolol succinate #Acute pain of left knee L knee CT on 03/13 showed PCL footprint avulsion fracture. ~75mL of blood was aspirated from left knee on 03/13 during surgery. Continue with inpatient rehab. Tylenol scheduled. #Kidney stone, right side S/p cystoscopy, right retrograde pyelogram, right ureteral stent placement on 03/11/23. Urology planning for stone treatment 1-2 weeks after stent placement. Will complete course of abx and f/u urology. #Diabetic ketoacidosis,resolved HgbA1C: 11.4%. Home dose of metformin 1g PO BID. Patient initially in DKA in setting of acute complication UTI. Since resolved. Resume home meds. #Elevated serum creatinine, resolved JENN on ?CKD. Likely in setting of UTI/DM/Kidney stone. Renally dosed medications during hospital stay. #Benign prostatic hyperplasia Finasteride #Anemia Stable at this time without any significant decrease in hemoglobin. Currently at 7.7 on 03/17. Fecal occult blood negative. Likely secondary to dilution effect, though we will continue to monitor while admitted. Repeat CBC 1 week following discharge FENGI: carb consistent/DM2. Disposition: Clinically stable at this point, [facility] Code Status: Full code Addtl Management Intern Provider Instructions: Orthopedic Instructions: -Ice to left knee and left hip as needed for pain and swelling. -Weight-bear as tolerated left lower extremity with the assistance of a walker. -No hip precautions necessary. -Keep incision covered. Redress as needed. Starting postoperative day 4 you may shower and let the soap and water run over the incision. Pat the incision dry. -Allowed for full range of motion of all lower extremity joints. - May weight bear as tolerated left knee. Allowed to do range of motion, strengthening and stretching as tolerated. Quad sets, straight leg raises, all okay in PT/OT. - Knee immobilizer on left knee as needed when out of bed. -THONG stockings: On during the day and off at night for DVT prophylaxis for 4 to 6 weeks after surgery. Continue Xarelto. -Pain medication as prescribed. -Call [phone] with any increased pain, swelling, redness, warmth or drainage from your incision. Or need to reschedule appointment. - Follow up as scheduled with [facility]. Pending Studies at Discharge: No Stand-Alone Forms: My [facility] Skilled Items Patient informed of condition?: Yes DNR: No Discharge Level of Care: Skilled Communicable Disease: No Discharge Prognosis: Stable Lines: None Urinary Catheter: No Medications and DC Order Prescriptions: New acetaminophen 325 mg Tablet 650 mg PO 0500,0900,1300,1700,2100 Qty: 90 0RF polyethylene glycol 3350 [Miralax] 17 gram Powder In Packet 17 g PO DAILY PRN (Reason: constipation) 28 Days Qty: 100 0RF cholecalciferol (vitamin D3) 125 mcg (5,000 unit) Tablet 50,000 unit PO Q7D Qty: 7 0RF tramadol 50 mg Tablet 50 - 100 mg PO Q4H PRN (Reason: pain) Qty: 10 0RF oxycodone 5 mg Tablet 5 - 10 mg PO Q4H PRN (Reason: pain) Qty: 10 0RF sulfamethoxazole-trimethoprim [Bactrim DS] 800-160 mg tablet 2 tab PO Q12H 4 Days Qty: 16 0RF Continued metformin 500 mg tablet 1,000 mg PO BID metoprolol succinate 50 mg tablet extended release 24 hr 50 mg PO DAILY pantoprazole 40 mg tablet,delayed release (DR/EC) 40 mg PO DAILY finasteride 5 mg tablet 5 mg PO DAILY Xarelto 15 mg tablet 15 mg PO DAILY multivitamin Tablet 1 tab PO DAILY ascorbic acid (vitamin C) [Vitamin C] 500 mg Tablet 0 mg PO DAILY cholecalciferol (vitamin D3) [Vitamin D3] 25 mcg (1,000 unit) Tablet 0 mcg PO DAILY Probiotic 3 billion cell Capsule 0 mmu cells PO DAILY Rx Instructions: administer with a meal Prebiotic Fiber 2 gram Tablet,Chewable 0 g PO DAILY Discharge Orders: Discharge Order (Routine); Ordered 03/18/23 Ordered By: Terri Aquino Admission Data Admit Date/Time: 03/11/23 02:14 Attending Provider: Robbin Stephenson Admit Provider: Ronny Dempsey Primary Care Provider: PCP,NO Other Providers: Osmany Rosas ; Hieu Leiva ; Holden Velarde ; Gina Mccallum ; [facility] Other Interventions: Discharge Summary Assessment (RN) Last Done: 03/18/23 13:00 Supervising Physician Co-Signing Physician Notes Attending attestation I personally examined the patient and verified all dangelo points of history and exam, discussed case, and agree with decision making with Dr Aquino Feels good, would like to go to rehabbed available. No complaints today. Vitals noted, in general he is awake and alert pleasant no distress. HEENT no rmocephalic atraumatic mucous membranes moist. Breathing unlabored no accessory muscle use good effort. Skin shows no rashes no pallor or icterus. Neuro without focal deficits. Complicated UTI w/ nephrolithiasis s/p stenting - ID consult appreciated - antibiotics as above, follow periodic basic metabolic panel (would check again in 2-3 days). 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 Resident Activity Tracking Resident Involvement: Resident Care Provided Care Provided: Adult Hospital Medicine
[2023-03-18] MEDS: traMADol HCL 50 MG TABLET PO PRN (14:16)
--- NOTE | 2023-03-18 18:42 | Billing Data ---
Date of Service March 18, 2023 Coding Level of Care Code 24292 IN/OBS DISCH 30 MIN/LESS
--- NOTE | 2023-03-18 21:00 | Billing Data ---
Date of Service March 18, 2023 Coding Level of Care Code 14748 INT INP/OBS CARE
== END 2023-03-18 14:53 | DRG 480 ==
LOC: ED 22:13 → 2S 03-11 02:14 → SUATTDRO 03-11 02:14 → 2S 03-11 03:23